=== PATIENT | male | born 1975 | race Native Hawaiian/Other Pacific Islander ===

== ENCOUNTER 2020-07-14 21:31 | Emergency (ER) | payer MEDICARE, SELFPAY ==
[2020-07-14 21:35] VITALS: BP 145/77; PULSE 80; RESP 19; TEMP 36.6; O2SAT 98; BMI 43.5
--- NOTE | 2020-07-14 22:33 | CT_ITS ---
EXAMINATION: CT ABDOMEN AND PELVIS WITHOUT CONTRAST CLINICAL INFORMATION: Flank and groin pain. Patient unable to urinate. History of left CVA. COMPARISON: Abdominal ultrasound 06/04/2016. TECHNIQUE: Multidetector volumetric imaging was performed from the superior aspect of the liver through the pubic symphysis. Sagittal and coronal reformatted images were obtained on the technologist's workstation. This CT examination was performed using dose optimization techniques as appropriate, variously including the following: *Automated exposure control *Adjustment of mA and/or kV according to patient size (this includes techniques or standardized protocols for targeted exams where dose is matched to indication/reason for exam; i.e. extremities or head) *Use of iterative reconstruction technique DLP: 1065 mGy-cm FINDINGS: LUNG BASES: Minor linear scarring. LIVER, GALLBLADDER, AND BILIARY TREE: The liver is normal in size, shape, and attenuation. No focal hepatic lesion or biliary ductal dilatation is present. The gallbladder is contracted. This is likely physiologic as the stomach is filled with food. The bile ducts are not dilated. PANCREAS: The unenhanced pancreas is uniform in attenuation with no mass, inflammation or ductal dilation. SPLEEN: The spleen is normal in size. ADRENAL GLANDS: Unremarkable. KIDNEYS AND URETERS: There is mild left hydroureteronephrosis. A 4 mm ureteral calculus is identified within the bladder lumen (series 3 image 78/96) likely within the ureteropelvic junction. There is subtle perinephric fat stranding on the left. The right kidney is normal in appearance without mass, calculus or hydronephrosis. The right ureter is nondilated. BLADDER: As noted above, there is a 4 mm calculus in the left bladder likely contained within the distal left ureter at the UVJ; given left hydroureteronephrosis. No bladder mass or wall thickening. The bladder is only mildly distended. GASTROINTESTINAL TRACT: The visualized esophagus is normal. The stomach is distended with food. Small bowel loops are normal in caliber. Normal terminal ileum. The appendix is not specifically identified. No pericecal inflammation. No evidence of colitis. No free air. No free fluid. ABDOMINAL WALL: Postsurgical changes at the level of the umbilicus without ventral hernia. There appears to have been a mesh repair of the anterior abdominal wall. LYMPH NODES: Normal. VASCULAR: Minimal atherosclerotic peripheral vascular disease with normal caliber abdominal aorta. PELVIC VISCERA: The prostate and seminal vesicles are normal in appearance. No pelvic free fluid or lymphadenopathy OSSEOUS STRUCTURES: Unilateral sacralization of L5 on the left, an anatomic variant. CT/CT abdomen pelvis wo con IMPRESSION: A 4 mm left ureterovesical junction calculus causes mild left hydroureteronephrosis.
--- NOTE | 2020-07-14 22:35 | ED.MALEGU ---
HPI - Male Genitourinary General Chief complaint: Urogenital-Male Stated complaint: flank pain Time Seen by Provider: 07/14/20 22:28 Source: patient Mode of arrival: ambulatory Limitations: no limitations History of Present Illness HPI Narrative: 44-year-old male with past medical history of hypertension, DVT, not on a blood thinner, complaining of 1 day of left flank pain and groin pain, inability to urinate. denies fever, chills, nausea or vomiting. denies blood in his urine. was able to urinate last at 21:00 but said it was a very small amount. states he had kidney stones once but it was many many years ago Related Data Home Medications Medication Instructions Recorded Confirmed hydrochlorothiazide 25 mg PO DAILY 07/14/20 07/14/20 lisinopril 2.5 mg PO DAILY 07/14/20 07/14/20 oxycodone-acetaminophen [Percocet] 2 tab PO Q4-6H PRN 07/14/20 07/14/20 Previous Rx's Medication Instructions Recorded ibuprofen 600 mg PO Q6H PRN #30 tab 07/15/20 prednisone 40 mg PO DAILY #8 tab 07/15/20 tamsulosin [Flomax] 0.4 mg PO DAILY #5 cap 07/15/20 Allergies Allergy/AdvReac Type Severity Reaction Status Date / Time morphine [MORPHINE] Allergy Mild CONFUSION, Verified 07/14/20 21:46 hives, rash/ itchy Review of Systems Review of Systems: Yes all other systems are reviewed and are negative PMFSH Past Medical History Attestation statement: The following information was validated with the patient. Medical History DVT (deep venous thrombosis) Social History Social History Smoking Status: Never smoker Use of substances other than those prescribed or required for medical reasons: No Advance Directives: No Advance Directives Information Provided: Yes Physical Exam Vital Signs: Vital Signs: Vital Signs Temp Pulse Resp BP Pulse Ox 07/14/20 23:05 97.9 F 77 15 129/76 97 07/14/20 21:35 97.8 F 80 19 145/77 H 98 Body Mass Index 43.5 Const: General: cooperative and other (in pain) Nutritional Appearance: obese Orientation/consciousness: patient oriented x3 HENMT: Head: Yes normal to inspection Eyes: General: appearance normal, both eyes and all related structures Neck: Neck: Yes normal visual inspection, Yes full ROM and Yes supple Resp: Effort & Inspection: normal respiratory effort and able to speak in complete sentences GI: Inspection: Yes obesity Palpation (GI): Soft to palpation, nontender and no guarding : Male General Exam: Yes normal external exam and No tenderness Skin: General skin exam: no rashes or lesions noted Neuro: General: patient oriented x3 Extrem: General: Yes no calf tenderness, Yes edema (L>R ) and Yes venous stasis dermatitis Psych: Appearance: grossly normal Course Course Course Narrative: 44-year-old male with past medical history of hypertension and history of DVT not on a blood thinner complaining of 1 day of left flank and groin pain, Inability to urinate fully, will get UA, CT/NG, labs and abdominal CT scan, give IVF and reassess. 12:20am patient states he has good pain relief, reviewed CT scan results with patient, explained plan for Flomax, prednisone, pain management and follow up with Dr. Pratt later this week. patient understands and agrees with plan. Will discharge home. MDM - Male Genitourinary Differential Diagnosis Differential diagnosis: Likely urinary tract infection, urethritis, prostatitis and acute retention of urine (2/2 BPH, stones ) Medical Records Attestation: I reviewed the patient's medical records. Lab Data Attestation: I reviewed the patient's lab results. Result diagrams: 07/14/20 23:19 07/14/20 23:19 Labs: Lab Results 07/14/20 07/14/20 07/14/20 Range/Units 22:44 23:19 23:19 WBC 5.6 (4.8-10.8) X10*3/uL RBC 5.04 (4.60-5.80) X10*6/uL Hgb 14.5 (14.0-18.0) g/dl Hct 45.3 (42-52) % MCV 89.9 (80-98) fL MCH 28.8 (27.0-33.0) pg MCHC 32.0 (31.0-36.0) g/dl RDW 14.2 (11.0-16.0) % Plt Count 194 (160-400) X10*3/uL MPV 10.5 (9.4-12.4) fL Immature Gran % (Auto) 0.2 (0.0-0.4) % Neut % (Auto) 55.2 (45-73) % Lymph % (Auto) 30.2 (20-40) % Carter % (Auto) 11.7 H (2-11) % Eos % (Auto) 1.8 (0-4) % Baso % (Auto) 0.9 (0-2) % Lymph # (Auto) 1.7 (1.2-4.9) X10*3/uL Carter # (Auto) 0.7 (0.1-1.2) X10*3/uL Eos # (Auto) 0.1 (0.0-0.4) X10*3/uL Baso # (Auto) 0.1 (0.0-0.2) X10*3/uL Abs Immat Gran (auto) 0.01 (0.00-0.03) X10*3/uL Absolute Neuts (auto) 3.1 (2.0-8.3) X10*3/uL Absolute Nucleated RBC 0.000 (0.0-0.012) X10*3/uL Nucleated RBC % (auto) 0.0 (0.0-0.2) /100WBC Hold Blue Top SEE NOTE Sodium (135-145) mmol/L Potassium (3.3-5.1) mmol/l Chloride (96-108) mmol/L Carbon Dioxide (22-29) mmol/L Anion Gap (12-20) BUN (9-16) mg/dL Creatinine (0.5-1.4) mg/dL Estim Creat Clear Calc Estimated GFR Random Glucose (60-115) mg/dL Calcium (8.4-10.2) mg/dL Total Bilirubin (0.0-1.0) mg/dL AST (5-37) U/L ALT (0-40) U/L Alkaline Phosphatase (39-117) U/L Total Protein (6.5-8.0) g/dL Albumin (3.5-5.0) g/dL Urine Color YELLOW Urine Appearance CLEAR Urine pH 6.5 (5.0-8.0) Ur Specific [place] 1.010 (1.005-1.025) Urine Protein NEG (NEG-TRACE) MG/DL Urine Glucose (UA) NEG (NEG) MG/DL Urine Ketones NEG (NEG) MG/DL Urine Blood 2+ H (NEG) Urine Nitrite NEG (NEG) Ur Leukocyte Esterase NEG (NEG) Urine RBC 10-14 H (0) /HPF Urine WBC 0 (0-4) /HPF Ur Squamous Epith Cells NONE /LPF Urine Bacteria NONE /LPF 07/14/20 Range/Units 23:19 WBC (4.8-10.8) X10*3/uL RBC (4.60-5.80) X10*6/uL Hgb (14.0-18.0) g/dl Hct (42-52) % MCV (80-98) fL MCH (27.0-33.0) pg MCHC (31.0-36.0) g/dl RDW (11.0-16.0) % Plt Count (160-400) X10*3/uL MPV (9.4-12.4) fL Immature Gran % (Auto) (0.0-0.4) % Neut % (Auto) (45-73) % Lymph % (Auto) (20-40) % Carter % (Auto) (2-11) % Eos % (Auto) (0-4) % Baso % (Auto) (0-2) % Lymph # (Auto) (1.2-4.9) X10*3/uL Carter # (Auto) (0.1-1.2) X10*3/uL Eos # (Auto) (0.0-0.4) X10*3/uL Baso # (Auto) (0.0-0.2) X10*3/uL Abs Immat Gran (auto) (0.00-0.03) X10*3/uL Absolute Neuts (auto) (2.0-8.3) X10*3/uL Absolute Nucleated RBC (0.0-0.012) X10*3/uL Nucleated RBC % (auto) (0.0-0.2) /100WBC Hold Blue Top Sodium 139 (135-145) mmol/L Potassium 4.1 (3.3-5.1) mmol/l Chloride 100 (96-108) mmol/L Carbon Dioxide 29 (22-29) mmol/L Anion Gap 14 (12-20) BUN 18 H (9-16) mg/dL Creatinine 1.19 (0.5-1.4) mg/dL Estim Creat Clear Calc 96.7 Estimated GFR > 60 Random Glucose 98 (60-115) mg/dL Calcium 8.9 (8.4-10.2) mg/dL Total Bilirubin 0.7 (0.0-1.0) mg/dL AST 21 (5-37) U/L ALT 29 (0-40) U/L Alkaline Phosphatase 52 (39-117) U/L Total Protein 7.1 (6.5-8.0) g/dL Albumin 4.1 (3.5-5.0) g/dL Urine Color Urine Appearance Urine pH (5.0-8.0) Ur Specific [place] (1.005-1.025) Urine Protein (NEG-TRACE) MG/DL Urine Glucose (UA) (NEG) MG/DL Urine Ketones (NEG) MG/DL Urine Blood (NEG) Urine Nitrite (NEG) Ur Leukocyte Esterase (NEG) Urine RBC (0) /HPF Urine WBC (0-4) /HPF Ur Squamous Epith Cells /LPF Urine Bacteria /LPF Imaging Data CT scan - abdomen: Attestation: I personally reviewed and interpreted this imaging study as follows: Radiologist's impression: GAIL [place] Find Patient CT - Devon Baker 44 M 1975 ACTIVITY DATE EXAM STATUS AUTHOR 07/14/20 22:[address] [place] [id number] [address] Scan Report Signed Patient: Del BakeroMR#: [id number] : 1975Acct:[id number] Age/Sex: 44 / MADM Date: 07/14/20 Loc: HO.ED Attending Dr: Ordering Physician: FARAZ WONG Date of Service: 07/14/20 Procedure(s): CT abdomen pelvis wo con Accession Number(s): [id number] cc: FARAZ WONG~ EXAMINATION: CT ABDOMEN AND PELVIS WITHOUT CONTRAST CLINICAL INFORMATION: Flank and groin pain. Patient unable to urinate. History of left CVA. COMPARISON: Abdominal ultrasound 06/04/2016. TECHNIQUE: Multidetector volumetric imaging was performed from the superior aspect of the liver through the pubic symphysis. Sagittal and coronal reformatted images were obtained on the technologist's workstation. This CT examination was performed using dose optimization techniques as appropriate, variously including the following: *Automated exposure control *Adjustment of mA and/or kV according to patient size (this includes techniques or standardized protocols for targeted exams where dose is matched to indication/reason for exam; i.e. extremities or head) *Use of iterative reconstruction technique DLP: 1065 mGy-cm FINDINGS: LUNG BASES: Minor linear scarring. LIVER, GALLBLADDER, AND BILIARY TREE: The liver is normal in size, shape, and attenuation. No focal hepatic lesion or biliary ductal dilatation is present. The gallbladder is contracted. This is likely physiologic as the stomach is filled with food. The bile ducts are not dilated. PANCREAS: The unenhanced pancreas is uniform in attenuation with no mass, inflammation or ductal dilation. SPLEEN: The spleen is normal in size. ADRENAL GLANDS: Unremarkable. KIDNEYS AND URETERS: There is mild left hydroureteronephrosis. A 4 mm ureteral calculus is identified within the bladder lumen (series 3 image 78/96) likely within the ureteropelvic junction. There is subtle perinephric fat stranding on the left. The right kidney is normal in appearance without mass, calculus or hydronephrosis. The right ureter is nondilated. BLADDER: As noted above, there is a 4 mm calculus in the left bladder likely contained within the distal left ureter at the UVJ; given left hydroureteronephrosis. No bladder mass or wall thickening. The bladder is only mildly distended. GASTROINTESTINAL TRACT: The visualized esophagus is normal. The stomach is distended with food. Small bowel loops are normal in caliber. Normal terminal ileum. The appendix is not specifically identified. No pericecal inflammation. No evidence of colitis. No free air. No free fluid. ABDOMINAL WALL: Postsurgical changes at the level of the umbilicus without ventral hernia. There appears to have been a mesh repair of the anterior abdominal wall. LYMPH NODES: Normal. VASCULAR: Minimal atherosclerotic peripheral vascular disease with normal caliber abdominal aorta. PELVIC VISCERA: The prostate and seminal vesicles are normal in appearance. No pelvic free fluid or lymphadenopathy OSSEOUS STRUCTURES: Unilateral sacralization of L5 on the left, an anatomic variant. CT/CT abdomen pelvis wo con IMPRESSION: A 4 mm left ureterovesical junction calculus causes mild left hydroureteronephrosis. Dictated By:ELLEN DEXTER MD Signed By:<Electronically signed by ELLEN DEXTER MD in OV>07/14/202311 DD/ 32 TD/TT: Internal Consultant: JV Discharge Plan Discharge Clinical Impression: Hydroureteronephrosis, Left ureteral calculus Patient Disposition: Home, Self-Care Instructions: Kidney Stones (ED), Hydronephrosis (ED) Prescriptions: New tamsulosin [Flomax] 0.4 mg capsule 0.4 mg PO DAILY Qty: 5 RF: 0 ibuprofen 600 mg tablet 600 mg PO Q6H PRN (Reason: pain) Qty: 30 RF: 0 prednisone 20 mg tablet 40 mg PO DAILY Qty: 8 RF: 0 No Action oxycodone-acetaminophen [Percocet] 5-325 mg Tablet 2 tab PO Q4-6H PRN (Reason: Pain, Moderate) RF: 0 hydrochlorothiazide 25 mg Tablet 25 mg PO DAILY RF: 0 lisinopril 2.5 mg Tablet 2.5 mg PO DAILY RF: 0 Referrals: Joao Pratt MD [Physician] - 3 days Print Language: Kenyan
[2020-07-14 22:55] LABS: Glucose Urine UA NEG (NEG); Leukocyte Esterase Urine NEG (NEG); Nitrite Urine NEG (NEG); PH 6.5 (5.0-8.0); Urine Blood 2+ (NEG); Urine Ketones NEG (NEG); Urine Protein NEG (NEG-TRACE)
[2020-07-14 22:59] LABS: Appearance Urine CLEAR; Color Urine YELLOW
[2020-07-14 23:05] VITALS: BP 129/76; PULSE 77; RESP 15; TEMP 36.6; O2SAT 97
[2020-07-14 23:08] LABS: WBC Urine 0 /HPF (0-4)
[2020-07-14] MEDS: 0.9 % Sodium Chloride 1,000 ML 999 ML IVCONT (23:21)
[2020-07-14] MEDS: Ketorolac Tromethamine 15 MG/ML VIAL IV (23:29)
--- NOTE | 2020-07-14 23:31 | PC.NURSE ---
patient medicated for pain per emar as noted.
[2020-07-14 23:33] LABS: MANUAL DIFF FLAG NO
[2020-07-14 23:35] LABS: Basophils Absolute Auto 0.1 X10*3/uL (0.0-0.2); Basophils Percent Auto 0.9 % (0-2); Eosinophils Absolute Auto 0.1 X10*3/uL (0.0-0.4); Eosinophils Percent Auto 1.8 % (0-4); Hematocrit 45.3 % (42-52); Hemoglobin 14.5 g/dl (14.0-18.0); Imm Gran Abs Auto 0.01 X10*3/uL (0.00-0.03); Imm Gran Pct Auto 0.2 % (0.0-0.4); Lymphocytes Absolute Auto 1.7 X10*3/uL (1.2-4.9); Lymphocytes Percent Auto 30.2 % (20-40); Mean Corpuscular Hemoglobin 28.8 pg (27.0-33.0); Mean Corpuscular Volume 89.9 fL (80-98); Mean Platelet Volume 10.5 fL (9.4-12.4); Monocytes Absolute Auto 0.7 X10*3/uL (0.1-1.2); Monocytes Percent Auto 11.7 % (2-11); Neutrophils Absolute Auto 3.1 X10*3/uL (2.0-8.3); Neutrophils Percent Auto 55.2 % (45-73); Platelet Count 194 X10*3/uL (160-400); Red Blood Count 5.04 X10*6/uL (4.60-5.80); Red Cell Distribution Width 14.2 % (11.0-16.0); White Blood Count 5.6 X10*3/uL (4.8-10.8)
[2020-07-14 23:57] LABS: Alanine Aminotransferase 29 U/L (0-40); Albumin Level 4.1 g/dL (3.5-5.0); Alkaline Phosphatase 52 U/L (39-117); Anion Gap 14 (12-20); Aspartate Amino Transferase 21 U/L (5-37); Bilirubin Total 0.7 mg/dL (0.0-1.0); Blood Urea Nitrogen 18 mg/dL (9-16); Calcium 8.9 mg/dL (8.4-10.2); Carbon Dioxide 29 mmol/L (22-29); Chloride 100 mmol/L (96-108); Creatinine Clr Calc Pharmacy 96.7; Estimated Glomerular Filt Rate > 60; Glucose Random 98 mg/dL (60-115); Potassium 4.1 mmol/l (3.3-5.1); Sodium 139 mmol/L (135-145); Total Protein 7.1 g/dL (6.5-8.0)
[2020-07-15] VITALS: BP 108/57; PULSE 67; RESP 14; O2SAT 98
[2020-07-15 01:41] LABS: CT PCR NOT DETECTED (Not Detect.); NG PCR NOT DETECTED (Not Detect.)
== END 2020-07-15 00:54 | disposition home or self-care (01) ==
PROVIDERS: Physician Assistant; Emergency Provider Emergency Medicine Emergency Medical Services; PCP Internal Medicine Geriatric Medicine
DX: N13.2 Hydronephrosis with renal and ureteral calculous obstruction (principal); R10.30 Lower abdominal pain, unspecified; Z86.718 Personal history of other venous thrombosis and embolism; Z79.899 Other long term (current) drug therapy
CPT/HCPCS: 36415; 74176; 80053; 81001; 85025; 87491; 87591; 96361; 96374; 99284; J1885

== ENCOUNTER 2020-09-03 13:47 | Emergency (ER) | payer OTHER, MEDICARE, SELFPAY ==
[2020-09-03 13:54] VITALS: BMI 35.2
[2020-09-03 14:16] VITALS: BP 142/85; PULSE 88; RESP 18; TEMP 36.6; O2SAT 97
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
== END 2020-09-03 15:02 | disposition home or self-care (01) ==
PROVIDERS: Emergency Provider Emergency Medicine; PCP Internal Medicine Geriatric Medicine
DX: S40.012A Contusion of left shoulder, initial encounter (principal); M25.512 Pain in left shoulder; V43.52XA Car driver injured in collision with other type car in traffic accident, initial encounter; Y93.9 Activity, unspecified; Y92.410 Unspecified street and highway as the place of occurrence of the external cause; Y99.9 Unspecified external cause status; Z79.899 Other long term (current) drug therapy
CPT/HCPCS: 71046; 99283; 99284

== ENCOUNTER 2020-12-03 17:51 | Outpatient (REF) | payer OTHER, MEDICARE, SELFPAY ==
--- NOTE | ~2020-12-03 | US_ITS ---
EXAMINATION: US VENOUS ULTRASOUND WITH DOPPLER LOWER EXTREMITY, LEFT CLINICAL INFORMATION: Left lower extremity edema and pain COMPARISON: Bilateral lower extremity ultrasound 04/23/2020 TECHNIQUE: Ultrasound of the deep veins is performed from the hip to the calf with compression sonography and color and pulse Doppler assessment. Spectral analysis with color-flow imaging is performed. FINDINGS: There is normal venous compression and respiratory variation and augmented flow. The visualized common femoral vein, superficial femoral vein, profunda femoral vein, popliteal vein, and the trifurcation region shows no evidence of deep venous thrombosis. There is no significant popliteal fossa cyst. Left lower extremity edema is noted. If the patient's symptoms persist, followup ultrasound in 5 days 7 days might be of value to exclude proximal propagation from a non-visualized calf vein. US/US venous duplex LE IMPRESSION: No DVT demonstrated in the left lower extremity.
== END 2020-12-03 17:52 | disposition home or self-care (01) ==
LOC: HO.US 17:51
PROVIDERS: PCP Internal Medicine Geriatric Medicine; Visit Provider Internal Medicine
DX: R60.0 Localized edema (principal)
CPT/HCPCS: 93971

== ENCOUNTER → 2021-01-23 10:25 | Outpatient (BNVA) | payer MEDICARE, SELFPAY | PROVIDERS: PCP Internal Medicine; Visit Provider Surgery Vascular Surgery | DX: I83.12 Varicose veins of left lower extremity with inflammation (principal) | CPT/HCPCS: 99212 ==

== ENCOUNTER → 2021-01-31 07:33 | Outpatient (BNVA) | payer MEDICARE, SELFPAY | PROVIDERS: PCP Internal Medicine; Visit Provider Surgery | DX: E66.01 Morbid (severe) obesity due to excess calories (principal); I10 Essential (primary) hypertension; G47.30 Sleep apnea, unspecified; Z68.42 Body mass index [BMI] 45.0-49.9, adult | CPT/HCPCS: Q3014 ==

== ENCOUNTER 2021-02-03 10:07 | Outpatient (REF) | payer MEDICARE, SELFPAY ==
--- NOTE | ~2021-02-03 | XR_ITS ---
EXAMINATION: XR CHEST CLINICAL INFORMATION: Essential (primary) hypertension. COMPARISON: Chest radiographs 09/03/2020, 12/28/2018 TECHNIQUE: Two views of the chest were obtained. FINDINGS: The heart is normal in size. The vascularity is normal. The lungs are clear. The costophrenic sulci are well defined. The hilar and mediastinal contours and visualized bony structures are unremarkable. No acute intrathoracic disease. XR/XR chest 2V IMPRESSION: Unremarkable examination.
--- NOTE | 2021-02-03 10:22 | ECG_ITS ---
Test Reason : HTN Blood Pressure : / mmHG Vent. Rate : 085 BPM Atrial Rate : 085 BPM P-R Int : 150 ms QRS Dur : 086 ms QT Int : 372 ms P-R-T Axes : 060 052 007 degrees QTc Int : 442 ms Normal sinus rhythm Normal ECG When compared with ECG of 16-SEP-2017 23:27, No significant change was found Referred By: Ravindra Kline Electronically Signed By:JAVIER JAIMES MD
[2021-02-03 11:02] LABS: MANUAL DIFF FLAG NO
[2021-02-03 11:12] LABS: Basophils Percent Auto 0.5 % (0-2); Eosinophils Absolute Auto 0.1 X10*3/uL (0.0-0.4); Eosinophils Percent Auto 1.3 % (0-4); Hematocrit 46.7 % (42-52); Hemoglobin 14.8 g/dl (14.0-18.0); Imm Gran Abs Auto 0.02 X10*3/uL (0.00-0.03); Imm Gran Pct Auto 0.4 % (0.0-0.4); Lymphocytes Absolute Auto 1.2 X10*3/uL (1.2-4.9); Mean Corpuscular HGB Conc 31.7 g/dl (31.0-36.0); Mean Corpuscular Hemoglobin 28.8 pg (27.0-33.0); Mean Platelet Volume 10.2 fL (9.4-12.4); Monocytes Absolute Auto 0.6 X10*3/uL (0.1-1.2); Monocytes Percent Auto 10.5 % (2-11); Neutrophils Absolute Auto 3.7 X10*3/uL (2.0-8.3); Neutrophils Percent Auto 65.3 % (45-73); Platelet Count 203 X10*3/uL (160-400); Red Blood Count 5.13 X10*6/uL (4.60-5.80); Red Cell Distribution Width 14.6 % (11.0-16.0); White Blood Count 5.6 X10*3/uL (4.8-10.8)
[2021-02-03 11:22] LABS: Estimated Average Glucose 134 mg/dL; Hemoglobin A1c % 6.3 %
[2021-02-03 11:35] LABS: Alanine Aminotransferase 93 U/L (0-40); Albumin Level 4.3 g/dL (3.5-5.0); Alkaline Phosphatase 62 U/L (39-117); Anion Gap 13 (12-20); Aspartate Amino Transferase 55 U/L (5-37); Bilirubin Total 0.7 mg/dL (0.0-1.0); Blood Urea Nitrogen 17 mg/dL (9-16); C Reactive Protein 1.38 mg/dL (< or = 0.50); Calcium 9.2 mg/dL (8.4-10.2); Carbon Dioxide 29 mmol/L (22-29); Chloride 103 mmol/L (96-108); Cholesterol 183 mg/dL; Estimated Glomerular Filt Rate > 60; Glucose Random 111 mg/dL (60-115); HDL Cholesterol 39 mg/dL; Iron 94 mcg/dL (45-160); LDL Cholesterol Calculated 98 mg/dl; Percent Iron Saturation 29 % (15-50); Potassium 4.8 mmol/L (3.3-5.1); Sodium 140 mmol/L (135-145); Total Iron Binding Capacity 320 mcg/dL (228-428); Total Protein 7.6 g/dL (6.5-8.0); Triglycerides 234 mg/dL; Unsaturated Iron Binding 226 ug/dL
[2021-02-03 11:58] LABS: Ferritin 425 ng/mL (20-250); TSH reflex Free T4 0.97 uIU/mL (0.32-4.0); Vitamin D 25-OH Total 15.1 ng/mL (>30)
[2021-02-03 12:10] LABS: Folate 9.7 ng/mL (> or = 4.0); Vitamin B12 406 pg/mL (200-900)
[2021-02-04 13:12] LABS: Calcium (PTHI) 9.4 mg/dL (8.6-10.3); PTHI 72 pg/mL (14-64)
[2021-02-06 05:52] LABS: Zinc 97 mcg/dL (60-130)
[2021-02-07 02:31] LABS: Vitamin A 44 mcg/dL (38-98)
[2021-02-07 18:16] LABS: Vitamin B1 7 nmol/L (8-30)
== END 2021-02-03 10:08 | disposition home or self-care (01) ==
LOC: HO.LAB 10:07
PROVIDERS: PCP Internal Medicine Geriatric Medicine; Visit Provider Surgery
DX: E66.01 Morbid (severe) obesity due to excess calories (principal); I10 Essential (primary) hypertension; G47.30 Sleep apnea, unspecified
CPT/HCPCS: 36415; 71046; 80053; 80061; 82306; 82607; 82728; 82746; 83036; 83525; 83540; 83970; 84425; 84443; 84590; 84630; 85025; 86140; 93005

== ENCOUNTER 2021-02-10 10:27 | Outpatient (REF) | payer MEDICARE, SELFPAY ==
--- NOTE | ~2021-02-10 | US_ITS ---
EXAMINATION: BILATERAL LOWER EXTREMITY VENOUS ULTRASOUND (REFLUX EXAM) CLINICAL INDICATION: Lower extremity varicose veins. COMPARISON: Left lower extremity venous Doppler ultrasound on 12/03/2020. TECHNIQUE: Color flow triplex imaging and compression Doppler was performed to evaluate both the deep and the superficial systems bilaterally. To evaluate the superficial system, the examination was performed in the upright position. Color-flow Doppler ultrasound and compression ultrasound were utilized. In addition, maneuvers were utilized to demonstrate reflux. FINDINGS: 1. DEEP VENOUS ULTRASOUND OF THE RIGHT LOWER EXTREMITY: Common Femoral Vein: Compressible, normal respiratory variation and augmented flow. Femoral vein: Compressible, normal color flow and augmentation. Popliteal Vein: Compressible, normal augmentation. Deep Reflux: There is no evidence of reflux in the deep system in either the common femoral vein or the popliteal vein. There is no evidence of a Cash's cyst. 2. SUPERFICIAL ULTRASOUND WITH DOPPLER OF RIGHT LOWER EXTREMITY GREAT SAPHENOUS VEIN: Saphenofemoral junction/proximal thigh: 0.7 cm; greater than 1.6 seconds of reflux. Midthigh: 0.5 cm; greater than 2.7 seconds of reflux. Above knee: 0.5 cm; No evidence of reflux. At knee: 0.5 cm; No evidence of reflux. Below knee: 0.5 cm; No evidence of reflux. Midcalf: 0.3 cm; No evidence of reflux. Ankle: 0.3 cm; No evidence of reflux. DUPLICATED GREAT SAPHENOUS VEIN: Medial, 0.4 cm, greater than 3.0 seconds of reflux. SMALL SAPHENOUS VEIN: Not visualized. VEIN OF GIACOMINI: None Imaged. PERFORATORS: Midcalf, 0.4 cm, no reflux. VARICOSITIES: Proximal thigh, 0.6 cm, greater than 3.1 seconds of reflux. Proximal calf, 0.5 cm, greater than 1.6 seconds of reflux. Proximal calf, 0.4 cm, greater than 1.3 seconds of reflux. Midcalf, 0.8 cm, greater than 1.6 seconds of reflux. 3. DEEP VENOUS ULTRASOUND OF THE LEFT LOWER EXTREMITY: Common Femoral Vein: Compressible, normal respiratory variation and augmented flow. Femoral vein: Compressible, normal color flow and augmentation. Popliteal Vein: Compressible, normal augmentation. Deep Reflux: There is greater than 1.9 seconds of reflux within the common femoral vein and greater than 1.1 seconds of reflux within the popliteal vein. There is no evidence of a Cash's cyst. 4. SUPERFICIAL ULTRASOUND WITH DOPPLER OF LEFT LOWER EXTREMITY GREAT SAPHENOUS VEIN: Saphenofemoral junction: 0.8 cm; later than 1.7 seconds of reflux. Proximal thigh: 1.1 cm; greater than 2.5 seconds of reflux. Midthigh: Not seen. Above knee: 0.9 cm; greater than 2.0 seconds of reflux. At knee: 1.0 cm; greater than 3.1 seconds of reflux. Below knee: 0.9 cm; greater than 2.2 seconds of reflux. Midcalf: 0.4 cm; greater than 1.0. Ankle: 0.5 cm; greater than 2.0. DUPLICATED GREAT SAPHENOUS VEIN: Lateral, 0.4 cm, no reflux. SMALL SAPHENOUS VEIN: Not visualized. VEIN OF GIACOMINI: None Imaged. PERFORATORS: Proximal calf, 0.7 cm, no reflux. VARICOSITIES: Midthigh, 0.5 cm, greater than 2.3 seconds of reflux. Midthigh, 0.9 cm, greater than 2.7 seconds of reflux. Proximal calf, 0.4 cm, greater than 1.7 seconds of reflux. Proximal calf, 0.7 cm, greater than 1.6 seconds of reflux. US/US venous duplex LE BI IMPRESSION: 1. Bilateral great saphenous venous insufficiency. 2. Duplicated medial right great saphenous venous insufficiency. 3. Bilateral refluxing varicosities. 4. No evidence of right DVT or deep venous reflux. 5. No evidence of left DVT, however, there is deep reflux within the common femoral vein and popliteal vein on the left.
== END 2021-02-10 10:28 | disposition home or self-care (01) ==
LOC: HO.US 10:27
PROVIDERS: Visit Provider Surgery Vascular Surgery
DX: I83.12 Varicose veins of left lower extremity with inflammation (principal); I83.893 Varicose veins of bilateral lower extremities with other complications
CPT/HCPCS: 93970

== ENCOUNTER → 2021-02-13 10:50 | Outpatient (BNVA) | payer OTHER, SELFPAY | PROVIDERS: PCP Internal Medicine Geriatric Medicine; Visit Provider Surgery Vascular Surgery | DX: I83.12 Varicose veins of left lower extremity with inflammation (principal) | CPT/HCPCS: 99212 ==

== ENCOUNTER → 2021-02-21 07:14 | Outpatient (BNVA) | payer OTHER, SELFPAY | PROVIDERS: PCP Internal Medicine Geriatric Medicine; Visit Provider Surgery | DX: E66.01 Morbid (severe) obesity due to excess calories (principal); E51.9 Thiamine deficiency, unspecified; E55.9 Vitamin D deficiency, unspecified | CPT/HCPCS: Q3014 ==

== ENCOUNTER 2021-02-26 08:17 | Outpatient (REF) | payer OTHER, SELFPAY ==
[2021-02-27 14:47] LABS: H Pylori Breath Test DETECTED (NOT DETECTED)
== END 2021-02-26 08:18 | disposition home or self-care (01) ==
LOC: HO.LNP 08:17
PROVIDERS: Surgery; PCP Internal Medicine Geriatric Medicine; Visit Provider Dietitian, Registered
DX: E66.01 Morbid (severe) obesity due to excess calories (principal); Z68.42 Body mass index [BMI] 45.0-49.9, adult; G47.30 Sleep apnea, unspecified; I10 Essential (primary) hypertension; Z71.3 Dietary counseling and surveillance
CPT/HCPCS: 83013; 97802; 99211

== ENCOUNTER → 2021-02-28 07:34 | Outpatient (BNVA) | payer OTHER, SELFPAY | PROVIDERS: PCP Internal Medicine Geriatric Medicine; Visit Provider Surgery Vascular Surgery | DX: I83.12 Varicose veins of left lower extremity with inflammation (principal) | CPT/HCPCS: 36482 ==

== ENCOUNTER 2021-03-02 19:26 | Emergency (ER) | payer OTHER, SELFPAY ==
--- NOTE | ~2021-03-02 | US_ITS ---
EXAMINATION: US VENOUS ULTRASOUND WITH DOPPLER LOWER EXTREMITY, LEFT CLINICAL INFORMATION: Swelling, redness status post venous ablation COMPARISON: 01/31/2021 TECHNIQUE: Ultrasound of the deep veins is performed from the hip to the calf with compression sonography and color and pulse Doppler assessment. Spectral analysis with color-flow imaging is performed. FINDINGS: There is normal venous compression and respiratory variation and augmented flow. The visualized common femoral vein, superficial femoral vein, profunda femoral vein, popliteal vein, and the trifurcation region shows no evidence of deep venous thrombosis. There is no significant popliteal fossa cyst. If the patient's symptoms persist, followup ultrasound in 5 days 7 days might be of value to exclude proximal propagation from a non-visualized calf vein. US/US venous duplex LE IMPRESSION: No DVT demonstrated in the left lower extremity.
[2021-03-02 19:47] VITALS: BP 140/88; PULSE 87; RESP 18; TEMP 36.6; O2SAT 96; BMI 45.1
--- NOTE | 2021-03-02 23:36 | ED.SKABFB ---
HPI - Skin/Abscess/Foreign Bdy General Chief complaint: Skin/Abscess/Foreign Body Stated complaint: left leg pain Time Seen by Provider: 03/02/21 23:06 History of Present Illness HPI narrative: 45-year-old man with a history of varicose vein. Had vein stripping done by vascular on Wednesday. Presents today with having increasing pain to the thigh. No fever no chills. No shortness of breath. No diaphoresis. No systemic complaints. Patient not on blood thinners. No nausea no vomiting. No upper respiratory symptoms. Related Data Home Medications Medication Instructions Recorded Confirmed hydrochlorothiazide 25 mg PO DAILY 07/14/20 01/31/21 lisinopril 2.5 mg PO DAILY 07/14/20 01/31/21 oxycodone-acetaminophen [Percocet] 2 tab PO Q4-6H PRN 07/14/20 01/31/21 Previous Rx's Medication Instructions Recorded cholecalciferol (vitamin D3) 125 125 mcg PO DAILY #30 cap 02/21/21 mcg (5,000 unit) capsule mecobalamin (vitamin B12) 1,000 1,000 mcg SUBLINGUAL DAILY #30 tab 02/21/21 mcg disintegrating tablet,sublingual thiamine HCl (vitamin B1) 100 mg 100 mg PO DAILY #30 tab 02/21/21 tablet doxycycline hyclate 100 mg PO BID 7 Days #14 cap 03/03/21 Allergies Allergy/AdvReac Type Severity Reaction Status Date / Time morphine [MORPHINE] Allergy Mild CONFUSION, Verified 02/28/21 09:22 hives, rash/ itchy Review of Systems Review of Systems: Constitutional: No Weight loss, No Fever, No Chills, No Night Sweats, No Fatigue, No Malaise ENT/Mouth: No Hearing loss, No Ear Pain, No Nasal Congestion, No Sinus Pain, No Hoarseness, No sore throat, No Rhinorrhea, No Swallowing Difficulty Eyes: No Eye Pain, No Swelling, No Redness, No Foreign Body, No Discharge, No Vision Changes Cardiovascular: No Chest Pain, No SOB, No Dyspnea on Exertion, No Orthopnea, No Edema, No Palpitations Respiratory: No Cough, No Sputum, No Wheezing, No Smoke Exposure, No Dyspnea Gastrointestinal: No Nausea, No Vomiting, No Diarrhea, No Constipation, No abdominal Pain, No Hematochezia, No Melena Genitourinary: no irregular bleeding, No Dysuria, No Urinary Frequency, No Hematuria, No Urinary Incontinence, No Urgency, No Flank Pain, No Urinary Flow Changes, No Hesitancy Musculoskeletal: Positive leg swelling on the left side. Neuro: No Weakness, No Numbness, No Paresthesias, No Loss of Consciousness, No Dizziness, No Headache Psych: No Anxiety/Panic, No Depression, No SI/HI/AH/VH, No Social Issues, Heme/Lymph: No Bruising, No Bleeding,No Lymphadenopathy Endocrine: No Polyuria, No Polydipsia, No Temperature Intolerance [facility] Past Medical History Attestation statement: The following information was validated with the patient. Medical History DJD (degenerative joint disease) DVT (deep venous thrombosis) Kidney stones Morbid obesity Sleep apnea with use of continuous positive airway pressure (CPAP) Surgical History Hx of appendectomy Hx of varicose vein stripping Family History Family History Mother Hypertension Father No problems noted. Brother No problems noted. Sister No problems noted. Sister No problems noted. Sister No problems noted. Sister No problems noted. Sister No problems noted. Sister No problems noted. Brother No problems noted. Brother No problems noted. Daughter No problems noted. Social History Social History Alcohol intake: current Alcohol intake frequency: holidays/special occasions only Advance Directives: No Physical Exam Vital Signs: Vital Signs: Last Vital Signs Temp 98 F 03/02/21 19:47 Pulse 71 03/03/21 00:37 Resp 16 03/03/21 00:37 BP 135/85 03/03/21 00:37 Pulse Ox 96 03/03/21 00:37 Body Mass Index 45.1 Appearance: Alert. Oriented X3. No acute distress. Eyes: Pupils equal, round and reactive to light. ENT: Pharynx normal. Neck: Normal inspection. Neck supple. No lymph nodes noted. No crepitus CVS: Normal heart rate and rhythm. Pulses normal. Normal S1 and S2 Respiratory: No respiratory distress. Breath sounds normal. No Wheezing. No rales Abdomen: Soft and nontender. No rigidity. No distention. good BS x4 Skin: Skin warm and dry. Normal skin color. Normal skin turgor. Extremities: Positive pain on palpation of the left thigh. The incision wound looks completely intact. There is no redness. It is slightly warm to touch. range of motion at the knee is baseline. There is no calf tenderness elicited. Pulse 2 +at dorsalis pedis. Sensation over the foot intact. Skin over the foot intact. Neuro: Oriented X 3. No motor deficit. No sensory deficit. Moving all extermities. No slurred speech MDM - Skin/Abscess/Foreign Bdy MDM Narrative Medical decision making narrative: Patient's white count was normal. Doppler of the lower extremity did not show any evidence of DVT. Patient had no shortness of breath. No suggestions of PE. It is slightly warm to touch. Will go ahead and start patient on some doxycycline. Will have patient follow-up with vascular on an outpatient basis. In stable condition. Lab Data Result diagrams: 03/02/21 23:46 03/02/21 23:46 Labs: Lab Results 03/02/21 03/02/21 Range/Units 23:46 23:46 WBC 7.3 (4.8-10.8) X10*3/uL RBC 5.21 (4.60-5.80) X10*6/uL Hgb 15.0 (14.0-18.0) g/dl Hct 46.9 (42-52) % MCV 90.0 (80-98) fL MCH 28.8 (27.0-33.0) pg MCHC 32.0 (31.0-36.0) g/dl RDW 14.6 (11.0-16.0) % Plt Count 200 (160-400) X10*3/uL MPV 10.1 (9.4-12.4) fL Immature Gran % (Auto) 0.1 (0.0-0.4) % Neut % (Auto) 59.7 (45-73) % Lymph % (Auto) 25.6 (20-40) % Blackford % (Auto) 11.2 H (2-11) % Eos % (Auto) 3.0 (0-4) % Baso % (Auto) 0.4 (0-2) % Lymph # (Auto) 1.9 (1.2-4.9) X10*3/uL Blackford # (Auto) 0.8 (0.1-1.2) X10*3/uL Eos # (Auto) 0.2 (0.0-0.4) X10*3/uL Baso # (Auto) 0.0 (0.0-0.2) X10*3/uL Abs Immat Gran (auto) 0.01 (0.00-0.03) X10*3/uL Absolute Neuts (auto) 4.4 (2.0-8.3) X10*3/uL Absolute Nucleated RBC 0.000 (0.0-0.012) X10*3/uL Nucleated RBC % (auto) 0.0 (0.0-0.2) /100WBC Sodium 140 (135-145) mmol/L Potassium 4.3 (3.3-5.1) mmol/L Chloride 104 (96-108) mmol/L Carbon Dioxide 27 (22-29) mmol/L Anion Gap 13 (12-20) BUN 19 H (9-16) mg/dL Creatinine 0.94 (0.5-1.4) mg/dL Estim Creat Clear Calc 123.7 Estimated GFR > 60 Random Glucose 88 (60-115) mg/dL Calcium 9.3 (8.4-10.2) mg/dL Discharge Plan Discharge Clinical Impression: Varicose veins of left lower extremity with inflammation, Cellulitis Patient Disposition: Home, Self-Care Instructions: Cellulitis (ED), Vein Stripping (DC) Prescriptions: New doxycycline hyclate 100 mg capsule 100 mg PO BID 7 Days Qty: 14 RF: 0 No Action oxycodone-acetaminophen [Percocet] 5-325 mg Tablet 2 tab PO Q4-6H PRN (Reason: Pain, Moderate) RF: 0 hydrochlorothiazide 25 mg Tablet 25 mg PO DAILY RF: 0 lisinopril 2.5 mg Tablet 2.5 mg PO DAILY RF: 0 mecobalamin (vitamin B12) 1,000 mcg tablet,disintegrating 1,000 mcg sublingual DAILY Qty: 30 RF: 2 thiamine HCl (vitamin B1) 100 mg tablet 100 mg PO DAILY Qty: 30 RF: 2 cholecalciferol (vitamin D3) 125 mcg (5,000 unit) capsule 125 mcg PO DAILY Qty: 30 RF: 2 Referrals: Stone Vasquez MD [Physician] - 1 day
[2021-03-02 23:50] LABS: MANUAL DIFF FLAG NO
[2021-03-02 23:51] LABS: Basophils Percent Auto 0.4 % (0-2); Eosinophils Absolute Auto 0.2 X10*3/uL (0.0-0.4); Hematocrit 46.9 % (42-52); Imm Gran Abs Auto 0.01 X10*3/uL (0.00-0.03); Imm Gran Pct Auto 0.1 % (0.0-0.4); Lymphocytes Absolute Auto 1.9 X10*3/uL (1.2-4.9); Lymphocytes Percent Auto 25.6 % (20-40); Mean Corpuscular Hemoglobin 28.8 pg (27.0-33.0); Mean Platelet Volume 10.1 fL (9.4-12.4); Monocytes Absolute Auto 0.8 X10*3/uL (0.1-1.2); Monocytes Percent Auto 11.2 % (2-11); Neutrophils Absolute Auto 4.4 X10*3/uL (2.0-8.3); Neutrophils Percent Auto 59.7 % (45-73); Platelet Count 200 X10*3/uL (160-400); Red Blood Count 5.21 X10*6/uL (4.60-5.80); Red Cell Distribution Width 14.6 % (11.0-16.0); White Blood Count 7.3 X10*3/uL (4.8-10.8)
[2021-03-03 00:20] LABS: Anion Gap 13 (12-20); Blood Urea Nitrogen 19 mg/dL (9-16); Calcium 9.3 mg/dL (8.4-10.2); Carbon Dioxide 27 mmol/L (22-29); Chloride 104 mmol/L (96-108); Creatinine Clr Calc Pharmacy 123.7; Estimated Glomerular Filt Rate > 60; Glucose Random 88 mg/dL (60-115); Potassium 4.3 mmol/L (3.3-5.1); Sodium 140 mmol/L (135-145)
[2021-03-03 00:37] VITALS: BP 135/85; PULSE 71; RESP 16; O2SAT 96
== END 2021-03-03 02:49 | disposition home or self-care (01) ==
PROVIDERS: Nurse Practitioner Family; Emergency Provider Emergency Medicine Emergency Medical Services; PCP Internal Medicine Geriatric Medicine
DX: I83.12 Varicose veins of left lower extremity with inflammation (principal); L03.116 Cellulitis of left lower limb; Z86.718 Personal history of other venous thrombosis and embolism; Z98.890 Other specified postprocedural states
CPT/HCPCS: 36415; 80048; 85025; 93971; 99283; 99284

== ENCOUNTER 2021-03-12 08:11 | Outpatient (REF) | payer OTHER, SELFPAY ==
--- NOTE | ~2021-03-12 | FL_ITS ---
EXAMINATION: XR GI SERIES CLINICAL INFORMATION: Moderate to severe obesity. Preop. COMPARISON: None TECHNIQUE: Routine upper GI air contrast study was performed. FINDINGS: Following oral administration of thick barium and effervescent granules there is normal propagation bolus from the oral cavity through the pharynx, esophagus into stomach without any obstruction or narrowing. On placing patient supine and prone lying the course, caliber and peristalsis in the stomach and the duodenum is normal. No gastroesophageal reflux or hiatal hernia seen. The mucosal pattern of stomach, duodenal bulb and the sweep is normal. FLUOROSCOPY TIME: 1.7 minutes DOSE AREA PRODUCT: 48.985 uGy-m2 (microgray-meter squared) FL/FL upper GI series IMPRESSION: Unremarkable upper GI air contrast study.
--- NOTE | ~2021-03-12 | US_ITS ---
EXAMINATION: US COMPLETE ABDOMEN WITH LIVER ELASTOGRAPHY CLINICAL INFORMATION: Obesity COMPARISON: Previous CT of the abdomen and pelvis June 2020 and abdominal ultrasound May 2000 TECHNIQUE: Real-time imaging of the abdominal viscera. Noninvasive ultrasound liver fibrosis assessment is performed using Yeny ElastPQ point quantification shear wave elastography (pSWE) with a C5-2 MHz transducer. Multiple elastography samples are obtained. Exam is limited due to patient body habitus. FINDINGS: PANCREAS: The body of the pancreas is normal. The head and tail the pancreas are not well visualized due to bowel gas. ABDOMINAL AORTA: The proximal and distal aortic segments are normal in caliber. The mid abdominal aorta is not well visualized due to bowel gas. INFERIOR VENA CAVA: Visualized portions are normal. LIVER: Liver echotexture is increased probably representing fatty infiltration. The liver contour and size is normal.. No focal lesion or intrahepatic biliary duct dilatation. The right lobe measures 16 cm in length. The left lobe measures 13 cm in length. Portal flow is normal/hepatopedal Shear wave liver elastography median stiffness is 2.1 m/s (reference: normal median stiffness is 1.3 m/s or less). IQR/median stiffness to assess sampling precision is 0.4 (reference: good quality data set is IQR/median stiffness of 0.15 or less). GALLBLADDER: Not well visualized COMMON BILE DUCT: Not well visualized. RIGHT KIDNEY: Normal. No hydronephrosis. No renal calculi or focal parenchymal lesions. The kidney measures 10.4 cm in maximum dimension. LEFT KIDNEY: Normal. No hydronephrosis. No renal calculi or focal parenchymal lesions. The kidney measures 12 cm in maximum dimension. SPLEEN: Normal. The spleen measures 12.5 cm in maximum dimension. FREE FLUID: None. US/US abdomen comp w elastography IMPRESSION: 1. Impression Limited exam. Echogenic liver probably representing fatty infiltration. Pancreas, gallbladder, common bile duct and abdominal aorta not well visualized. 2. Liver elastography: Limited due to sampling error. Liver stiffness may be elevated. REFERENCE: Society of Radiologists in Ultrasound Liver Stiffness Thresholds (2019): LIVER STIFFNESS THRESHOLDS: *Liver Stiffness equal or less than 1.3 m/s: High probability of being normal. *Liver Stiffness less than 1.7 m/s: In the absence of other known clinical signs, rules out compensated advanced chronic liver disease. *Liver Stiffness 1.7-2.1 m/s: Suggestive of compensated advanced chronic liver disease but need further test for confirmation. *Liver Stiffness over 2.1 m/s: Rules in compensated advanced chronic liver disease. *Liver Stiffness over 2.4 m/s: Suggestive of clinically significant portal hypertension. QUALITY OF DATA SET: *IQR/Median value equal or less than 0.15 implies a quality data set. *IQR/Median value over 0.15 implies a poor quality data set. SIGNIFICANT CHANGE FROM PRIOR EXAM: Significant change if liver stiffness measurement is 10% or greater from prior exam. OTHER CONSIDERATIONS: The stage of liver fibrosis may be overestimated in the setting of acute hepatitis, liver inflammation, elevated liver function tests, hepatic vascular congestion, obstructive cholestasis, non-fasting state, and infiltrative diseases such as amyloidosis and lymphoma. In some patients with NAFLD, the liver stiffness thresholds for compensated advanced chronic liver disease may be lower. In causes other than viral hepatitis and NAFLD, liver stiffness thresholds are not well established.
== END 2021-03-12 08:12 | disposition home or self-care (01) ==
LOC: HO.US 08:11
PROVIDERS: Visit Provider Surgery
DX: Z01.818 Encounter for other preprocedural examination (principal); E66.01 Morbid (severe) obesity due to excess calories; K21.9 Gastro-esophageal reflux disease without esophagitis; I10 Essential (primary) hypertension; G47.30 Sleep apnea, unspecified
CPT/HCPCS: 74240; 76705; 76981

== ENCOUNTER → 2021-03-13 11:49 | Outpatient (BNVA) | payer OTHER, SELFPAY | PROVIDERS: PCP Internal Medicine Geriatric Medicine; Visit Provider Surgery Vascular Surgery | DX: I83.12 Varicose veins of left lower extremity with inflammation (principal) | CPT/HCPCS: 99212 ==

== ENCOUNTER → 2021-03-17 08:07 | Outpatient (BNVA) | payer OTHER, SELFPAY | PROVIDERS: PCP Internal Medicine Geriatric Medicine; Visit Provider Dietitian, Registered | DX: E66.01 Morbid (severe) obesity due to excess calories (principal) | CPT/HCPCS: 97803 ==

== ENCOUNTER → 2021-03-25 11:40 | Outpatient (BNVA) | payer OTHER, SELFPAY | PROVIDERS: PCP Internal Medicine Geriatric Medicine; Visit Provider Surgery Vascular Surgery | DX: I83.12 Varicose veins of left lower extremity with inflammation (principal) | CPT/HCPCS: 99212 ==

== ENCOUNTER → 2021-04-01 12:55 | Outpatient (BNVA) | payer OTHER, SELFPAY | PROVIDERS: PCP Internal Medicine Geriatric Medicine; Referring Provider Internal Medicine Geriatric Medicine; Visit Provider Dietitian, Registered ==

== ENCOUNTER → 2021-04-15 12:39 | Outpatient (BNVA) | payer OTHER, SELFPAY | PROVIDERS: PCP Internal Medicine Geriatric Medicine; Referring Provider Internal Medicine Geriatric Medicine; Visit Provider Dietitian, Registered | DX: E66.01 Morbid (severe) obesity due to excess calories (principal); Z68.41 Body mass index [BMI] 40.0-44.9, adult; Z71.3 Dietary counseling and surveillance | CPT/HCPCS: 97803 ==

== ENCOUNTER → 2021-04-24 09:39 | Outpatient (BNVA) | payer OTHER, SELFPAY | PROVIDERS: PCP Internal Medicine Geriatric Medicine; Visit Provider Surgery Vascular Surgery | DX: I83.12 Varicose veins of left lower extremity with inflammation (principal) | CPT/HCPCS: 99212 ==

== ENCOUNTER 2021-05-05 06:54 | Day surgery (SDC) | payer OTHER, SELFPAY ==
[2021-05-05 07:07] VITALS: BMI 47.8
--- NOTE | 2021-05-05 07:35 | PC.NURSE ---
patients insurance is still a prior auth. aware of plan and awaiting for authorization.
[2021-05-05 08:00] VITALS: BP 140/90; PULSE 71; RESP 16; TEMP 36.3; O2SAT 97
--- NOTE | 2021-05-05 08:02 | PC.NURSE ---
office called patient has been authorized.
--- NOTE | 2021-05-05 08:14 | HO.ANESPROP2 ---
[facility] Active Problems Active Problems: All Active Problems (Updated 03/04/21 @ 00:01 by Matilde Flores) Vitamin D deficiency (Acute) Vitamin B1 deficiency (Acute) Binge eating disorder (Acute) Sleep apnea with use of continuous positive airway pressure (CPAP) (Acute) DJD (degenerative joint disease) (Acute) Kidney stones (Acute) Morbid obesity (Acute) Varicose veins of left lower extremity with inflammation (Acute) Hypertension (Acute) Past Medical History Medical History DJD (degenerative joint disease) DVT (deep venous thrombosis) Kidney stones Morbid obesity Sleep apnea with use of continuous positive airway pressure (CPAP) Family History Family History Mother Hypertension Father No problems noted. Brother No problems noted. Sister No problems noted. Sister No problems noted. Sister No problems noted. Sister No problems noted. Sister No problems noted. Sister No problems noted. Brother No problems noted. Brother No problems noted. Daughter No problems noted. Family history of problems with anesthesia: No Surgical History Surgical History Hx of appendectomy Hx of varicose vein stripping History of Problems with Anesthesia: No Social History Social History Alcohol intake: current Alcohol intake frequency: holidays/special occasions only Patient Tobacco Use Status: Never used Tobacco Use of substances other than those prescribed or required for medical reasons: No Are you DNR?: No Advance Directives: No Advance Directives Information Provided: Yes Recently lost weight without trying: No Nutrition Risks: No Nutritional Risk Poor oral hygiene: No Meds Allergies Allergy/AdvReac Type Severity Reaction Status Date / Time morphine [MORPHINE] Allergy Mild CONFUSION, Verified 04/24/21 09:43 hives, rash/ itchy Active Medications: Current Medications Generic Name Dose Route Start Last Admin Trade Name Freq PRN Reason Stop Dose Admin Lactated Ringer's 1,000 mls @ 50 mls/hr 05/02/21 12:15 Lr IVCONT .Q20H JODI Home Medications Medication Instructions Recorded Confirmed Last Taken Type hydrochlorothiazide 25 mg tablet 25 mg PO DAILY 07/14/20 01/31/21 07/13/20 History lisinopril 2.5 mg tablet 2.5 mg PO DAILY 07/14/20 01/31/21 07/13/20 History oxycodone-acetaminophen 5 mg-325 2 tab PO Q4-6H PRN 07/14/20 01/31/21 07/13/20 History mg tablet (Percocet) Exam Exam Date and Time: May 05, 202114 Height,Weight and Vital Signs: Height 5 ft 3 in Weight 122.47 kg Last Vital Signs Temp 97.4 F 05/05/21 08:00 Pulse 71 05/05/21 08:00 Resp 16 05/05/21 08:00 BP 140/90 H 05/05/21 08:00 Pulse Ox 97 05/05/21 08:00 Airway Mallampati Class: III (Missing some teeth, nothing loose) TM Dist: >3cm Neck ROM: Full Heart: rrr Lungs: cta Assessment and Plan Assessment Anesthesia Assessment: Anesthesia Plan Discussed and Chart Reviewed Final Anesthetic Review Family History of Problems with Anesthesia: No History of Problems with Anesthesia: No NPO: Yes ASA Class: III Final Preanesthetic Review: No Changes in Pt Med Stat and Consent Obtained/Reviewed Patient Risk: Intermediate Procedure Risk: Intermediate Anesthetic Plan Anesthetic Plan: MAC: Disposition: Standard PACU
--- NOTE | 2021-05-05 08:17 | MHC.SHP ---
Pre-Procedural Eval Section A Date of Service: 05/05/21 The patient is an INPATIENT: No The History & Physical has been completed within 30 days and I have reviewed it.: Yes Section B Chief Complaint: varicose veins of left lower Allergies: Allergies Allergy/AdvReac Type Severity Reaction Status Date / Time morphine [MORPHINE] Allergy Mild CONFUSION, Verified 04/24/21 09:43 hives, rash/ itchy Plan I have reviewed the history and physical and performed a pertinent physical examination on my patient. No changes have occurred unless specified.
[2021-05-05] MEDS: Lactated Ringers 1,000 ML 50 ML IVCONT ×2 (08:27)
[2021-05-05 10:00] VITALS: BP 113/85; PULSE 78; RESP 20; TEMP 36.3; O2SAT 97
--- NOTE | 2021-05-05 10:03 | P.OP_ITS ---
Operative Note Operative Note Date of Service: 05/05/21 Narrative: Operative note by [facility] Preoperative diagnosis: Left leg varicose veins with inflammation Postoperative diagnosis: Same Procedure: 1. Left leg microphlebectomy 2. Ligation of left leg venous cluster Surgeon:Stone Vasquez M.D. Community Program Assistant: None Anesthesia: Local with sedation by Dr. Fraire Specimens: 1 Drains: None Estimated blood loss: Minimal Indications: 45-year-old gentleman with a history of significant varicosities who has had prior venous ablations presents for varicose veins with inflammation in particular he has this large left thigh cluster which has been of concern to him. He now presents for operative intervention. The patient has signed the informed consent after reviewing risks, complications, benefits, and alternatives previously discussed with the patient in my office. The patient was given the opportunity to ask any additional questions or voice any concerns. All questions were answered to the patient's satisfaction. Procedure in detail:Varicose veins were marked in the standing position on the left leg and the patient was then placed in the supine position. The left lower extremity was prepared and draped to allow knee flexion in the sterile field. The patient had large superficial varicose veins with significant symptoms of pain. It was therefore determined to perform microphlebectomies of the clusters of varicose veins. The patient had bulging varicose veins which were previously marked in the standing position. A small stab incision was made longitudinally directly overlying the varicose vein in the calf and the varicose vein was grasped with a hemostat aided by a vein hook. It was then dissected as far proximally and distally as possible and avulsed. A total of 21 stab incisions were made and the procedure of stab phlebectomies was repeated 21 times. In addition there was a large venous cluster in the medial aspect of the left thigh. Incision was carried out over the base of this cluster. It was tied off with a 3-0 poly Sorb. Additional varicosities were removed with mosquito. It was also phlebitic and a fair amount of thrombus was also evacuated. The 3-0 Polysorb was used to close the skin as well. Hemostasis was checked and stab incision sites were closed with steri-strips and sterile dressing was given with gauze and krilex wrap followed by an fabrice bandage. There were no complications and blood loss was minimal. Post-Op instructions were given and a follow-up appointment was recommended. This note is constructed using voice recognition software. While every effort has been made to ensure accuracy, catering barista errors may have been included. Thank you for allowing me to participate in the care of your patient. Yours sincerely, Stone Vasquez MD, FACS, R.P.V.I.
[2021-05-05 10:15] VITALS: BP 118/83; PULSE 77; RESP 20; O2SAT 99
[2021-05-05] MEDS: oxyCODONE HCl Immed Release 5 MG TABLET PO (10:17)
[2021-05-05] MEDS: ondansetron HCL 4 MG/2 ML VIAL IVPUSH (10:21)
[2021-05-05 10:30] VITALS: BP 126/86; PULSE 75; RESP 18; TEMP 36.5; O2SAT 97
[2021-05-05 10:45] VITALS: BP 117/70; PULSE 69; RESP 18; O2SAT 100
--- NOTE | 2021-05-06 15:23 | P.OP_ITS ---
Operative Note Operative Note Date of Service: 05/05/21 Narrative: Operative note by [facility] Preoperative diagnosis: Left leg varicose veins with inflammation Postoperative diagnosis: Same Procedure:1. Left leg microphlebectomy 2. Ligation of left leg venous cluster Surgeon:Stone Vasquez M.D. Style Advisor: Maximus Anesthesia: Local with sedation Specimens: 1 Drains: None Estimated blood loss: Minimal Indications: 45-year-old gentleman with significant history of varicose veins. He has had prior left great saphenous vein ablation. He now presents for operative microphlebectomy due to his large varicosities. The patient has signed the informed consent after reviewing risks, complications, benefits, and alternatives previously discussed with the patient in my office. The patient was given the opportunity to ask any additional questions or voice any concerns. All questions were answered to the patient's satisfaction. Procedure in detail:Varicose veins were marked in the standing position on the left leg and the patient was then placed in the supine position. The left lower extremity was prepared and draped to allow knee flexion in the sterile field. Th e patient had large superficial varicose veins with significant symptoms of pain. It was therefore determined to perform microphlebectomies of the clusters of varicose veins. The patient had bulging varicose veins which were previously marked in the standing position. A small stab incision was made longitudinally directly overlying the varicose vein in the calf and the varicose vein was grasped with a hemostat aided by a vein hook. It was then dissected as far proximally and distally as possible and avulsed. A total of 21 stab incisions were made and the procedure of stab phlebectomies was repeated 21 times. In addition left leg had a venous cluster in the thigh area. This was identified and ligated at the base with a 3-0 poly Sorb suture. Residual varicosities were removed. Skin incision site was closed with a 3-0 poly Sorb as well. Hemostasis was checked and stab incision sites were closed with steri-strips and sterile dressing was given with gauze and krilex wrap followed by an fabrice bandage. There were no complications and blood loss was minimal. Post-Op instructions were given and a follow-up appointment was recommended. This note is constructed using voice recognition software. While every effort has been made to ensure accuracy, stonecutter apprentice hand errors may have been included. Thank you for allowing me to participate in the care of your patient. Yours sincerely, Stone Vasquez MD, FACS, R.P.V.I.
== END 2021-05-05 12:00 | disposition home or self-care (01) ==
PROVIDERS: PCP Internal Medicine Geriatric Medicine; Visit Provider Surgery Vascular Surgery
PROC: (CPT 37766; principal; 2021-05-05 08:00)
DX: I83.12 Varicose veins of left lower extremity with inflammation (principal); G47.33 Obstructive sleep apnea (adult) (pediatric); E66.01 Morbid (severe) obesity due to excess calories; Z68.41 Body mass index [BMI] 40.0-44.9, adult; M19.90 Unspecified osteoarthritis, unspecified site; Z79.899 Other long term (current) drug therapy; Z99.89 Dependence on other enabling machines and devices; Z88.8 Allergy status to other drugs, medicaments and biological substances
CPT/HCPCS: 37766; 37785; 88304; J0690; J2250; J2405; J3010

== ENCOUNTER → 2021-05-16 08:35 | Outpatient (BNVA) | payer OTHER, SELFPAY | PROVIDERS: PCP Internal Medicine Geriatric Medicine; Referring Provider Internal Medicine Geriatric Medicine; Visit Provider Dietitian, Registered | DX: E66.01 Morbid (severe) obesity due to excess calories (principal); Z68.41 Body mass index [BMI] 40.0-44.9, adult | CPT/HCPCS: 97803 ==

== ENCOUNTER → 2021-05-20 09:23 | Outpatient (BNVA) | payer OTHER, SELFPAY | PROVIDERS: PCP Internal Medicine Geriatric Medicine; Referring Provider Internal Medicine Geriatric Medicine; Visit Provider Surgery Vascular Surgery | DX: I83.12 Varicose veins of left lower extremity with inflammation (principal) | CPT/HCPCS: 99212 ==

== ENCOUNTER → 2021-06-25 08:48 | Outpatient (BNVA) | payer OTHER, SELFPAY | PROVIDERS: PCP Internal Medicine Geriatric Medicine; Referring Provider Internal Medicine Geriatric Medicine; Visit Provider Dietitian, Registered | DX: E66.9 Obesity, unspecified (principal); Z68.38 Body mass index [BMI] 38.0-38.9, adult | CPT/HCPCS: 97803 ==

== ENCOUNTER → 2021-07-07 10:18 | Outpatient (BNVA) | payer OTHER, SELFPAY | PROVIDERS: PCP Internal Medicine Geriatric Medicine; Referring Provider Internal Medicine Geriatric Medicine; Visit Provider Physician Assistant Surgical ==

== ENCOUNTER → 2021-08-11 08:17 | Outpatient (BNVA) | payer OTHER, SELFPAY | PROVIDERS: PCP Internal Medicine Geriatric Medicine; Visit Provider Surgery | CPT/HCPCS: Q3014 ==

== ENCOUNTER 2021-08-22 07:20 | Outpatient (REF) | payer OTHER, SELFPAY ==
[2021-08-24 13:26] LABS: H Pylori Breath Test Negative (Negative)
== END 2021-08-22 07:21 | disposition home or self-care (01) ==
LOC: HO.LNP 07:20
PROVIDERS: Physician Assistant; PCP Internal Medicine Geriatric Medicine; Referring Provider Internal Medicine Geriatric Medicine; Visit Provider Surgery
DX: A04.8 Other specified bacterial intestinal infections (principal)
CPT/HCPCS: 83013; 99211

== ENCOUNTER → 2021-09-15 07:50 | Outpatient (BNVA) | payer OTHER, SELFPAY | PROVIDERS: PCP Internal Medicine Geriatric Medicine; Visit Provider Surgery | DX: E66.01 Morbid (severe) obesity due to excess calories (principal); G47.30 Sleep apnea, unspecified; M19.90 Unspecified osteoarthritis, unspecified site; Z68.41 Body mass index [BMI] 40.0-44.9, adult | CPT/HCPCS: Q3014 ==

== ENCOUNTER 2021-09-16 08:35 | Outpatient (REF) | payer OTHER, SELFPAY ==
[2021-09-16 08:57] LABS: MANUAL DIFF FLAG NO
[2021-09-16 09:20] LABS: Basophils Percent Auto 0.6 % (0-2); Eosinophils Absolute Auto 0.1 X10*3/uL (0.0-0.4); Eosinophils Percent Auto 1.3 % (0-4); Hematocrit 49.6 % (42.0-52.0); Hemoglobin 15.9 g/dl (14.0-18.0); Imm Gran Abs Auto 0.02 X10*3/uL (0.00-0.03); Imm Gran Pct Auto 0.3 % (0.0-0.4); Lymphocytes Absolute Auto 1.3 X10*3/uL (1.2-4.9); Lymphocytes Percent Auto 19.4 % (20-40); Mean Corpuscular HGB Conc 32.1 g/dl (31.0-36.0); Mean Corpuscular Volume 90.3 fL (80.0-98.0); Mean Platelet Volume 10.4 fL (9.4-12.4); Monocytes Absolute Auto 0.6 X10*3/uL (0.1-1.2); Monocytes Percent Auto 8.2 % (2-11); Neutrophils Absolute Auto 4.8 x10*3/uL (2.0-8.3); Neutrophils Percent Auto 70.2 % (45-73); Platelet Count 221 X10*3/uL (160-400); Red Blood Count 5.49 X10*6/uL (4.60-5.80); Red Cell Distribution Width 14.8 % (11.0-16.0); White Blood Count 6.8 X10*3/uL (4.8-10.8)
[2021-09-16 09:27] LABS: INTERNATIONAL NORM RATIO 1.1 (0.9-1.1); Prothrombin Time 12.4 SEC (9.9-13.0)
[2021-09-16 09:30] LABS: Partial Thromboplastin Time 40.4 SEC (24.1-38.0)
[2021-09-16 09:31] LABS: Estimated Average Glucose 117 mg/dL; Hemoglobin A1c % 5.7 %
[2021-09-16 09:53] LABS: Alanine Aminotransferase 18 U/L (0-40); Albumin Level 4.3 g/dL (3.5-5.0); Alkaline Phosphatase 64 U/L (39-117); Anion Gap 12 (12-20); Aspartate Amino Transferase 15 U/L (5-37); Blood Urea Nitrogen 22 mg/dL (9-16); C Reactive Protein 1.14 mg/dL (< or = 0.50); Calcium 9.7 mg/dL (8.4-10.2); Carbon Dioxide 28 mmol/L (22-29); Chloride 105 mmol/L (96-108); Cholesterol 180 mg/dL; Estimated Glomerular Filt Rate > 60; Glucose Random 96 mg/dL (60-115); HDL Cholesterol 37 mg/dL; LDL Cholesterol Calculated 113 mg/dl; Potassium 4.6 mmol/L (3.3-5.1); Sodium 140 mmol/L (135-145); Total Protein 7.6 g/dL (6.5-8.0); Triglycerides 154 mg/dL
[2021-09-16 10:13] LABS: Insulin 12 uU/mL (2-29); TSH reflex Free T4 1.46 uIU/mL (0.32-4.0)
== END 2021-09-16 08:36 | disposition home or self-care (01) ==
LOC: HO.LAB 08:35
PROVIDERS: PCP Internal Medicine Geriatric Medicine; Visit Provider Surgery
DX: E66.01 Morbid (severe) obesity due to excess calories (principal); G47.30 Sleep apnea, unspecified; M19.90 Unspecified osteoarthritis, unspecified site
CPT/HCPCS: 36415; 80053; 80061; 83036; 83525; 84443; 85025; 85610; 85730; 86140

== ENCOUNTER → 2021-10-03 08:43 | Outpatient (BNVA) | payer OTHER, SELFPAY | PROVIDERS: PCP Internal Medicine Geriatric Medicine; Referring Provider Internal Medicine Geriatric Medicine; Visit Provider Physician Assistant ==

== ENCOUNTER 2021-10-14 07:40 | Inpatient (IN) | payer OTHER, SELFPAY ==
[2021-09-17 11:16] VITALS: BP 121/78; PULSE 87; RESP 16; O2SAT 94; BMI 39.6
--- NOTE | 2021-09-17 11:42 | HO.ANESPROP2 ---
Documented by User: Renetta Zayas NP 09/17/21 11:51 HPI - Anesthesia Eval Consult details Narrative: 46yo M for Gastrectomy Sleeve,EGD,poss diaphragmatic hernia,poss ventral hernia,poss open, PMFSH Active Problems Active Problems: All Active Problems (Updated 07/07/21 @ 10:25 by Shahnaz Allan, [facility]) H. pylori infection (Acute) Vitamin D deficiency (Acute) Vitamin B1 deficiency (Acute) Binge eating disorder (Acute) Sleep apnea with use of continuous positive airway pressure (CPAP) (Acute) DJD (degenerative joint disease) (Acute) Kidney stones (Acute) Morbid obesity (Acute) Varicose veins of left lower extremity with inflammation (Acute) Hypertension (Acute) Past Medical History Medical History DJD (degenerative joint disease) DVT (deep venous thrombosis) Kidney stones Morbid obesity Sleep apnea with use of continuous positive airway pressure (CPAP) Family History Family History Mother Hypertension Father No problems noted. Brother No problems noted. Sister No problems noted. Sister No problems noted. Sister No problems noted. Sister No problems noted. Sister No problems noted. Sister No problems noted. Brother No problems noted. Brother No problems noted. Daughter No problems noted. 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) Alcohol intake: current Alcohol intake frequency: holidays/special occasions only Patient Tobacco Use Status: Never used Tobacco Narrative Narrative: No recent illness No CP/SOB with >4mets Meds Allergies Allergy/AdvReac Type Severity Reaction Status Date / Time morphine [MORPHINE] Allergy Mild CONFUSION, Verified 09/15/21 11:59 hives, rash/ itchy Home Medications Medication Instructions Recorded Confirmed Last Taken Type hydrochlorothiazide 25 mg tablet 25 mg PO DAILY 07/14/20 09/17/21 07/13/20 History lisinopril 2.5 mg tablet 2.5 mg PO DAILY 07/14/20 09/17/21 07/13/20 History oxycodone-acetaminophen 5 mg-325 2 tab PO Q4-6H PRN 07/14/20 09/17/21 07/13/20 History mg tablet (Percocet) Exam Exam Date and Time: September 17, 2021 1142 Height,Weight and Vital Signs: Height 5 ft 6 in Weight 111.584 kg Last Vital Signs Pulse 87 09/17/21 11:16 Resp 16 09/17/21 11:16 BP 121/78 09/17/21 11:16 Pulse Ox 94 09/17/21 11:16 Pertinent Lab Results Pertinent Lab Results: Laboratory Tests 09/16/21 08:55 Blood Type O Positive Antibody Screen NEGATIVE Laboratory Tests 09/16/21 09/16/21 08:56 08:56 WBC 6.8 Hgb 15.9 Hct 49.6 Plt Count 221 Sodium 140 Potassium 4.6 Chloride 105 Carbon Dioxide 28 BUN 22 H Creatinine 0.93 Narrative Narrative: EKG 01/2021 Vent. Rate : 085 BPM ? ? Atrial Rate : 085 BPM ?? P-R Int : 150 ms? QRS Dur : 086 ms ? ? QT Int : 372 ms ? ? ? P-R-T Axes : 060 052 007 degrees ?? QTc Int : 442 ms ? Normal sinus rhythm Normal ECG When compared with ECG of 16-SEP-2017 23:27, No significant change was found Airway Mallampati Class: III TM Dist: >3cm Neck ROM: Full Loose/Missing/Broken Teeth: No Heart: RRR Lungs: CTAB Assessment and Plan Assessment Anesthesia Assessment: Anesthesia Plan Discussed (GA) and PAT Visit Final Anesthetic Review Family History of Problems with Anesthesia: No History of Problems with Anesthesia: No Documented by User: Brittany Kim MD 10/14/21 07:29 [facility] Past Medical History Medical History DJD (degenerative joint disease) DVT (deep venous thrombosis) Kidney stones Morbid obesity Sleep apnea with use of continuous positive airway pressure (CPAP) Family History Family History Mother Hypertension Father No problems noted. Brother No problems noted. Sister No problems noted. Sister No problems noted. Sister No problems noted. Sister No problems noted. Sister No problems noted. Sister No problems noted. Brother No problems noted. Brother No problems noted. Daughter No problems noted. 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) Alcohol intake: current Alcohol intake frequency: holidays/special occasions only Patient Tobacco Use Status: Never used Tobacco Meds Allergies Allergy/AdvReac Type Severity Reaction Status Date / Time morphine [MORPHINE] Allergy Mild CONFUSION, Verified 09/15/21 11:59 hives, rash/ itchy Home Medications Medication Instructions Recorded Confirmed Last Taken Type hydrochlorothiazide 25 mg tablet 25 mg PO DAILY 07/14/20 09/17/21 07/13/20 History lisinopril 2.5 mg tablet 2.5 mg PO DAILY 07/14/20 09/17/21 07/13/20 History oxycodone-acetaminophen 5 mg-325 2 tab PO Q4-6H PRN 07/14/20 09/17/21 07/13/20 History mg tablet (Percocet) Exam Height,Weight and Vital Signs: Height 5 ft 6 in Weight 111.584 kg Last Vital Signs Pulse 87 09/17/21 11:16 Resp 16 09/17/21 11:16 BP 121/78 09/17/21 11:16 Pulse Ox 94 09/17/21 11:16 Vital Signs Temp Pulse Resp BP Pulse Ox 10/14/21 06:33 97.6 F 88 16 123/86 94 Pertinent Lab Results Pertinent Lab Results: Laboratory Tests 09/16/21 08:55 Blood Type O Positive Antibody Screen NEGATIVE Laboratory Tests 09/16/21 09/16/21 08:56 08:56 WBC 6.8 Hgb 15.9 Hct 49.6 Plt Count 221 Sodium 140 Potassium 4.6 Chloride 105 Carbon Dioxide 28 BUN 22 H Creatinine 0.93 Lab Results 09/16/21 10/13/21 Range/Units 08:55 10:45 COVID-19 (CARL) Negative (Negative) COVID-19 Clin Com See Note Blood Type O Positive Antibody Screen NEGATIVE Assessment and Plan Assessment Anesthesia Assessment: Chart Reviewed Final Anesthetic Review NPO: Yes ASA Class: III Final Preanesthetic Review: No Changes in Pt Med Stat, Meds/Allgs Chart Reviewed, Consent Obtained/Reviewed and Anes Risks/Benef Reviewed Patient Risk: Intermediate Procedure Risk: Intermediate Assessment/Block/Sedation in SS: Assess/Block/Sedation-SS Anesthetic Plan Anesthetic Plan: GA Disposition: Standard PACU and Inp. Admit - Standard Bed
--- NOTE | 2021-09-20 21:16 | P.HPSUR_ITS ---
Pre-Procedural Eval Section A Date of Service: 09/20/21 The patient is an INPATIENT: Yes The History & Physical has been completed within 30 days and I have reviewed it.: No Section B Chief Complaint: obesity Relevant Family History (Specify if Yes): No Relevant Social History: None Present Medications: None Medical History: No relevant PMH History of Previous Operations: No relevant previous surgery Allergies: Allergies Allergy/AdvReac Type Severity Reaction Status Date / Time morphine [MORPHINE] Allergy Mild CONFUSION, Verified 09/15/21 11:59 hives, rash/ itchy Review of Systems Sugical H&P ROS: Negative: Constitution, Cardiovascular, Respiratory, Neurological, Psychiatric, Hem-Onc, Allergic/Immunologic, Gastrointestinal, Genitourinary, Musculoskeletal, Integumentary, Endocrine and Eyes/Ea rs/Nose/Throat Exam Surgical H&P Exam: Normal: HEENT, Normal: Heart, Normal: Lungs, Normal: Extremities, Normal: Abdomen, Normal: Skin and Normal: Neurological Plan Diagnosis/Plan: Unchanged I have reviewed the history and physical and performed a pertinent physical examination on my patient. No changes have occurred unless specified.
[2021-10-13 11:27] LABS: COVID-19 Test Negative (Negative)
--- NOTE | 2021-10-13 19:58 | P.HPSUR_ITS ---
Pre-Procedural Eval Section A Date of Service: 10/13/21 The patient is an INPATIENT: Yes The History & Physical has been completed within 30 days and I have reviewed it.: Yes Section B Chief Complaint: obesity Relevant Family History (Specify if Yes): No Relevant Social History: None Present Medications: None Medical History: No relevant PMH History of Previous Operations: No relevant previous surgery Allergies: Allergies Allergy/AdvReac Type Severity Reaction Status Date / Time morphine [MORPHINE] Allergy Mild CONFUSION, Verified 09/15/21 11:59 hives, rash/ itchy Review of Systems Sugical H&P ROS: Negative: Constitution, Cardiovascular, Respiratory, Neurological, Psychiatric, Hem-Onc, Allergic/Immunologic, Gastrointestinal, Genitourinary, Musculoskeletal, Integumentary, Endocrine and Eyes/E ars/Nose/Throat Exam Surgical H&P Exam: Normal: HEENT, Normal: Heart, Normal: Lungs, Normal: Extremities, Normal: Abdomen, Normal: Skin and Normal: Neurological Plan Diagnosis/Plan: Unchanged I have reviewed the history and physical and performed a pertinent physical examination on my patient. No changes have occurred unless specified.
[2021-10-14] VITALS (16 sets, daily range): BP systolic 109–139; BP diastolic 56–96; PULSE 71–92; RESP 14–18; TEMP 36.4–37.1; O2SAT 94–99
[2021-10-14] MEDS: Lactated Ringers 1,000 ML 100 ML IVCONT ×3 (06:49→20:24)
[2021-10-14] MEDS: Lactated Ringers 1,000 ML 999 ML IV (06:53)
[2021-10-14] MEDS: ceFAZolin Sodium/Dextrose,Iso 2 GM/50 ML PIGGYBACK IV ×2 (07:51→13:22)
--- NOTE | 2021-10-14 10:53 | P.BOP_ITS ---
Brief Operative Note Date of Service: 10/14/21 Pre-op diagnosis: Morbid obesity with comorbidities (see below) Post-op diagnosis: same (Extensive abdominal adhesions) Procedure: INITIAL PATIENT BMI ON PRESENTATION AT OUR OFFICE: 47.7 kg/m2 LAST BMI BEFORE SURGERY: 43.3 kg/m2 COMORBIDITIES: sleep apnea on CPAP, hypertension, knee pain, nephrolithiasis, liver steatosis, liver fibrosis ?The patient presented to the Weight Management Program with significant obesity that was negatively impacting the patient's comorbidities as listed above.? The program is a phased program with a special focus on preoperative medical weight management to promote substantial weight loss and prepare the patients for the second phase of the program: bariatric surgery. The patient participated in an intensive weekly lifestyle ?intervention and exercise program during which the patient ?has lost between the initial office visit and the last preoperative visit 43.3lbs, or 14.84% of initial actual body weight. It was deemed appropriate for the patient to now have bariatric surgery. In light of the current Covid-19 pandemic and the well documented strong association of obesity and increased risk of worse outcomes if infected with Covid-19 (REFERENCES: https://pubmed.ncbi.nlm.nih.gov/85391263/ ,? https://pubmed.ncbi.nlm.nih.gov/93093527/ ), any delay in undergoing bariatric surgery may lead to the patient's worsening health condition and increased?risk of more severe Covid-19 disease if infected. In addition a recent?study from [facility] published in [facility] on 09/15/2021 ([email or web address]) found that, among patients with obesity, substantial weight loss achieved with surgery was associated with improved outcomes of COVID-19 infection. The findings suggest that obesity can be a modifiable risk factor for the severity of COVID- 19 infection. In addition, the patient met the BMI-criteria for bariatric surgery based on the BMI on initial presentation. The patient should not be penalized for achieving such weight loss because ?it is not sustainable long-term without surgical intervention and it was achieved in preparation for bariatric surgery ?under my direction and based on my published research ([email or web address]).[email or web address] and? https://www.soard.org/article/X6814-3636(36)20328-X/pdf ) ?that a 10% preoperative weight loss improves long-term weight loss after surgery and reduces perioperative complications.? Insurance carriers such as [facility] have endo rsed my recommendations ?and have included in their policies criteria to include a 10% preoperative weight loss requirement. PROCEDURE: Esophago-gastroscopy, extensive laparoscopic lysis of adhesions, laparoscopic sleeve gastrectomy and laparoscopic gastropexy INDICATIONS: This is a 46 year-old male who was electively scheduled for laparoscopic, possibly open sleeve gastrectomy. The risks and complications of the procedure were discussed with the patient in advance, particularly the possibility of ; pulmonary embolism; staple line leak; bleeding; GERD; cardiac, pulmonary, or renal complications; as well as long-term problems such as insufficient weight loss, vitamin deficiency, strictures, or ulcers. The patient understood all the risks, and was in agreement to proceed with surgery. DESCRIPTION OF PROCEDURE: After informed consent was obtained from the patient, the patient was given preoperative antibiotics, and was transferred to the operating room. After successful induction of general anesthesia, pneumatic compression devices were placed on both lower extremities. An upper endoscopy was performed next. The oropharynx and esophagus appeared to be within normal limits. There was a diaphragmatic hernia present of moderate size consistent with the findings of the preoperative upper GI. The stomach was entered. Then after all fluid and air were suctioned and the stomach was fully decompressed, the scope was withdrawn and secured in the mid esophagus. The patient was then prepped and draped in the usual sterile manner. Due to previous midline incision abdominal access was established at the left mid-flank with the Marilyn technique. A 12 mm blunt port was inserted, and the abdomen was insufflated with CO2 to a pressure of 15 mmHg. Under direct visualization, addit ional ports were placed, specifically two 5 mm Versi-step ports to the left upper and lower quadrants. There were extensive adhesions in the abdomen from previous midline exploratory laparotomy involving the omentum and the anterior abdominal wall. Those were lysed completely with the ultrasonic device up to the point they were interfering with exposure to perform the sleeve gastrectomy. The remaining adhesion were left intact. Once the adhesions were freed additional ports were placed. Specifically two 5 mm Versi-Step ports to the right and upper quadrants and a 12 mm Versi-Step port to the right of the midline.. 1% lidocaine plain was used to infiltrate all port sites as well as all fascia defects. Following that, the patient was placed in a steep reverse Trendelenburg position. An additional 5 mm port was placed to the right flank for the Mediflex retractor that was used to retract the left lobe of the liver. The gastro-esophageal fat pad was opened with the ultrasonic device ( Thunderbeat, Olympus) and the anterior esophagus and hiatus were exposed. The angle of His was opened with the ultrasonic device the fundus of the stomach from any diaphragmatic and splenic attachments. I then opened the gastrocolic ligament between the transverse colon and the greater curvature of the stomach with the ultrasonic device to enter the lesser sac and facilitate the ligation of the short gastric vessels. I started at a mid-point along the greater curvature and using the Thunderbeat, all short gastric vessels were divided all the way to the angle of His until the left mercy was completely dissected at its entirety. I then divided the gastro-colic ligament distally to a distance of about 3-4 cm proximal to the esophagus. The stomach was then divided transversely with one Endo MARY JANE-45 purple, one MARY JANE- 60 purple load and 4 MARY JANE-6s0 articulating orange loads using the AEON stapler and loads. Every effort was made that the gastric sleeve had a tubular shape and an even caliber throughout. Once the sleeve resection was completed, the staple line of the gastric sleeve was reinforced with Hemoclips. The resected stomach was retrieved without difficulty from the Marilyn port. A gastropexy was then performed in order to prevent postoperative GERD and partial gastric volvulus. Several interrupted 2.0 Surgidac sutures were placed between the sleeve's staple line and the previously divided greater omentum and gastro-colic ligament using the Endo-Stitch device. ?An upper endoscopy was performed. There was no narrowing at the GE junction. The scope was easily advanced all the way to the pylorus which was clearly visualized. There was no narrowing anywhere and the sleeve's caliber was even throughout. The sleeve's staple line was inspected and there was no evidence of ischemia, bleeding or dehiscence. At that point the gastroscope was withdrawn from the patient?s mouth while we were decompressing the bowel and the stomach from any remaining air. I looked into the lesser sac to see how the sleeve was situating and it was situating well. There was no bleeding from the staple line, spleen, or short gastric vessels. The Mediflex retractor was removed, and the undersurface of the liver was inspected and there was no bleeding. The patient was placed in supine position. I closed the two fascial defects of the 12 mm ports site with the EndoClose suture passer with #1 Polysorb sutures. Then 100 cc 0.25 % Marcaine plain with 10 mg of Dexamethasone were used to infiltrate the fascial closure as well as all skin incisions. At this point, the abdomen was deflated, all ports were removed under direct vision, and no bleeding was noted from any of the port sites. The skin incisions were irrigated with saline and were closed with 4-0 absorbable monofilament sutures. Steri-Strips and OpSites were used to cover all incisions. The patient was extubated and was transferred in stable condition to the recovery room for further care. I was present and performed all simon parts of the procedure. Ho was the waiter/waitress first class. There were no residents to assist with this case. Chace Kline MD, PhD, FACS Surgeon: Ravindra Kline MD Anesthesia: GETA, local and other (TAP block) Was an Java Support Engineer used for this Procedure?: Yes Java Support Engineer: Kristen Ho Estimated blood loss (mL): 10 IV fluids (mL): 3,000 Urine output (mL): 0 (No Buckley to gravity) Pathology: other (Stomach) Condition: stable Disposition: PACU
[2021-10-14] MEDS: HYDROmorphone HCl 0.5 MG/0.5 ML SYRINGE 0.25 MG IVPUSH (10:55)
[2021-10-14] MEDS: Famotidine/PF 20 MG/2 ML VIAL IVPUSH ×2 (10:57→20:22)
--- NOTE | 2021-10-14 11:03 | P.PNGS_ITS ---
Subjective Subjective Date of Service: 10/15/21 Interval history: Patient has mild incisional pain, but was able to ambulate and use the incentive spirometer. He is tolerating phase 1 bariatric diet Physical Exam Verdana 4l Vital Signs: Verdana 4d Verdana 4d Vital Signs: Verdana 4d Verdana 4Bd Last Vital Signs Verdana 4d Chocolate Coater New 4d Chocolate Coater New 4d Temp 97.9 F 10/14/21 10:38 Chocolate Coater New 4d Pulse 91 10/14/21 10:43 Chocolate Coater New 4d Resp 16 10/14/21 10:55 BP 119/69 10/14/21 10:43 Pulse Ox 96 10/14/21 10:43 BMI result Body Mass Index 39.6 GI: Inspection: Yes normal to inspection, Yes incision (clean, dry and intact) and Yes obesity Extrem: Right lower extremity: normal to inspection (no calf tenderness) Left lower extremity: normal to inspection (no calf tenderness) Objective Data Active Medications Famotidine (Famotidine/Pf 20 Mg/2 Ml Vial) 20 mg IVPUSH BID [facility] Last Admin: 10/14/21 10:57 Dose: 20 mg Documented by: CASA Fentanyl (Fentanyl Citrate/Pf 100 Mcg/2 Ml Vial) 25 mcg IVPUSH Q5M PRN; Protocol PRN Reason: Pain, Moderate (Pain Scale 4-6 Hydromorphone HCl (Hydromorphone Hcl 0.5 Mg/0.5 Ml Syringe) 0.25 mg IVPUSH Q5M PRN; Protocol PRN Reason: Pain, Severe (Pain Scale 7-10) Last Admin: 10/14/21 10:55 Dose: 0.25 mg Documented by: CASA Lactated Ringer's (Lr) 1,000 mls @ 100 mls/hr IVCONT .Q10H [facility] Last Admin: 10/14/21 06:49 Dose: 100 mls/hr Documented by: SATINDER Promethazine HCl 6.25 mg/ (Sodium Chloride) 50.25 mls @ 201 mls/hr IV ONCE PRN PRN Reason: Nausea and Vomiting Metoclopramide HCl (Metoclopramide Hcl 10 Mg/2 Ml Vial) 10 mg IVPUSH Q6H PRN PRN Reason: Nausea Ondansetron HCl (Ondansetron Hcl 4 Mg/2 Ml Vial) 4 mg IVPUSH ONCE PRN PRN Reason: Nausea and Vomiting Labs CBC & Chem 7: 10/15/21 07:14 10/15/21 07:14 Labs: Laboratory Results - last 24 hr 10/13/21 10/14/21 10:45 06:24 COVID-19 (CARL) Negative COVID-19 Clin Com See Note Blood Type O Positive Antibody Screen NEGATIVE Procedures Date of Service Date of Service: 10/15/21 Progress Note: A&P Assessment and plan (1) Status post sleeve gastrectomy: Status: Acute Assessment and Plan: s/p laparoscopic sleeve gastrectomy, lysis of adhesions and gastropexy Doing well Check am labs. If OK, will discharge home? (2) Morbid obesity: Status: Acute (3) Sleep apnea with use of continuous positive airway pressure (CPAP): Status: Acute (4) DJD (degenerative joint disease): Status: Acute (5) Kidney stones: Status: Acute (6) Intra-abdominal adhesions: Status: Acute (7) Steatosis, liver: Status: Acute (8) Liver fibrosis: Status: Acute (9) Hypertension: Status: Acute (10) Varicose veins of left lower extremity with inflammation: Status: Acute (11) Knee pain: Status: Acute Fall Risk Details Current Medications: Current Medications Famotidine (Famotidine/Pf 20 Mg/2 Ml Vial) 20 mg IVPUSH BID [facility] Last Admin: 10/14/21 10:57 Dose: 20 mg Documented by: Fentanyl (Fentanyl Citrate/Pf 100 Mcg/2 Ml Vial) 25 mcg IVPUSH Q5M PRN; Protocol PRN Reason: Pain, Moderate (Pain Scale 4-6 Hydromorphone HCl (Hydromorphone Hcl 0.5 Mg/0.5 Ml Syringe) 0.25 mg IVPUSH Q5M PRN; Protocol PRN Reason: Pain, Severe (Pain Scale 7-10) Last Admin: 10/14/21 10:55 Dose: 0.25 mg Documented by: Lactated Ringer's (Lr) 1,000 mls @ 100 mls/hr IVCONT .Q10H [facility] Last Admin: 10/14/21 06:49 Dose: 100 mls/hr Documented by: Promethazine HCl 6.25 mg/ (Sodium Chloride) 50.25 mls @ 201 mls/hr IV ONCE PRN PRN Reason: Nausea and Vomiting Metoclopramide HCl (Metoclopramide Hcl 10 Mg/2 Ml Vial) 10 mg IVPUSH Q6H PRN PRN Reason: Nausea Ondansetron HCl (Ondansetron Hcl 4 Mg/2 Ml Vial) 4 mg IVPUSH ONCE PRN PRN Reason: Nausea and Vomiting Time Spent With Patient Time: Total time spent is greater than 50% in coordination of care (as documented) at patient's floor/unit and/or counseling patient: Time with patient: less than 15 minutes Quality Stroke Does the patient have a stroke diagnosis?: No VTE Prior VTE?: Yes Approximate Date of Prior VTE: 01/18/19 Approximate Time of Prior VTE: 14:00 VTE Risk Level:: Surgical - moderate VTE Device Contraindication: N/A - Device Ordered VTE Drug Contraindication: Treatment Not Indicated
[2021-10-14 11:14] LABS: Hematocrit 46.9 % (42.0-52.0); Hemoglobin 15.4 g/dl (14.0-18.0)
[2021-10-14 11:32] LABS: Anion Gap 13 (12-20); Blood Urea Nitrogen 14 mg/dL (9-16); Carbon Dioxide 27 mmol/L (22-29); Chloride 101 mmol/L (96-108); Creatinine Clr Calc Pharmacy 104.9; Estimated Glomerular Filt Rate > 60; Glucose Random 130 mg/dL (60-115); Potassium 4.2 mmol/L (3.3-5.1); Sodium 137 mmol/L (135-145)
[2021-10-14] MEDS: fentaNYL citrate/PF 100 MCG/2 ML VIAL 25 MCG IVPUSH (13:10)
--- NOTE | 2021-10-14 14:34 | P.DS_ITS ---
DS: Providers Provider Date of Service: 10/15/21 Date of admission: 10/14/21 07:40 Primary care physician: Logan Bettencourt MD DS: Diagnosis Discharge Diagnosis (1) Status post sleeve gastrectomy: Status: Acute (2) Morbid obesity: Status: Acute (3) Sleep apnea with use of continuous positive airway pressure (CPAP): Status: Acute (4) DJD (degenerative joint disease): Status: Acute (5) Kidney stones: Status: Acute (6) Intra-abdominal adhesions: Status: Acute (7) Steatosis, liver: Status: Acute (8) Liver fibrosis: Status: Acute (9) Hypertension: Status: Acute (10) Varicose veins of left lower extremity with inflammation: Status: Acute (11) Knee pain: Status: Acute DS: Summary Hospital Course Hospital Course: ADMITTING DIAGNOSIS: morbid obesity, CB, hx DVT., HTN DISCHARGE DIAGNOSIS: same, s/p laparoscopic sleeve gastrectomy PAST SURGICAL HISTORY: open appendectomy, laparotomy PROCEDURE: upper endoscopy, laparoscopic sleeve gastrectomy DISCHARGE SUMMARY: History of Present Illness: The patient is a 46 year-old woman with a BMI of 47.7 kg/m2 and associated co- morbidities as described above. The patient had extensive work-up,lost 42.9 lbs preoperatively and was electively scheduled for laparoscopic, possible open sleeve gastrectomy and gastropexy. Risks and complications of the surgery were discussed with the patient in advance, particularly the possibility of , pulmonary embolism, anastomotic leak, bleeding, bowel injury, GERD, cardiac, renal or pulmonary complications. The patient understood all the risks and was in agreement with the surgical plan. Hospital Course: The patient underwent an uneventful laparoscopic sleeve gastrectomy with gastropexy on the day of admission. Postoperatively, the patient was transferred to the surgical floor. The patient received IV Acetaminophen and IV dilaudid for pain control. Patient was started on bariatric phase 1 diet POD #0. On postoperative day one, the patient was feeling well without nausea, vomiting, fevers, or tachycardia. The patient had some mild incisional pain and the abdomen was soft. On the morning of postoperative day one, the patient was continued on 1 ounce of water or ice every half hour. During the day, the patient did fairly well, havin g some incisional pain, but able to ambulate adequately and to tolerate liquids well. Since the patient is doing well, we decided that the patient was ready to be discharged. The patient was given instructions to follow-up with me next week and to call my office for any fever over 101, persistent abdominal pain, nausea, vomiting, GERD, symptoms of DVT such as calf tenderness, or leg swelling, or pulmonary embolism such as chest pain or shortness of breath. The patient was also instructed to drink 40-60 ounces of liquids per day using the 1-ounce cups. The patient had been given prescriptions for Tylenol for pain, Zofran prn for nausea, and pantoprazole and carafate previously. The patient was encouraged to ambulate and use the incentive spirometer. The patient was allowed to shower, but no baths, and encouraged to stay active at home. All of these instructions were given to the patient personally. All questions were answered and the patient understood all instructions, the instructions were also given to the patient in print. Time Spent with Patient Time attestation: Total time spent providing and/or coordinating discharge services: Discharge coordination time: Less than 30 minutes Quality: Stroke Does the patient have a stroke diagnosis?: No Physical Exam Verdana 4l Vital Signs: Verdana 4d Verdana 4d Vital Signs: Verdana 4d Verdana 4Bd Last Vital Signs Verdana 4d Senior Net Software Developer New 4d Senior Net Software Developer New 4d Temp 97.7 F 10/14/21 13:50 Senior Net Software Developer New 4d Pulse 81 10/14/21 13:50 Senior Net Software Developer New 4d Resp 18 10/14/21 13:50 BP 109/68 10/14/21 13:50 Pulse Ox 97 10/14/21 13:50 BMI result Body Mass Index 39.6 DS: Data Data Completed and Pending Pending studies at discharge: Pending at discharge 10/14/21 09:39 Surgical [PTH] Routine Labs on day of discharge: Laboratory Results - last 24 hr 10/14/21 10/14/21 10/14/21 06:24 11:08 11:08 Hgb 15.4 Hct 46.9 Sodium 137 Potassium 4.2 Chloride 101 Carbon Dioxide 27 Anion Gap 13 BUN 14 Creatinine 1.02 Estim Creat Clear Calc 104.9 Estimated GFR > 60 Random Glucose 130 H D Calcium 9.0 D Blood Type O Positive Antibody Screen NEGATIVE Discharge Plan Discharge Anticipated Discharge Date/Time: 10/15/21 10:42 Patient Disposition: Home, Self-Care Discharge Diagnosis: s/p sleeve gastrectomy Referrals: Name,MD Logan [Primary Care Provider] - 1 Week Discharge Medications: Continued oxycodone-acetaminophen [Percocet] 5-325 mg Tablet 2 tab PO Q4H PRN (Reason: Pain, Moderate) 0RF lisinopril 2.5 mg Tablet 2.5 mg PO DAILY 0RF pantoprazole 40 mg tablet,delayed release (DR/EC) 40 mg PO DAILY Qty: 30 2RF Held hydrochlorothiazide 25 mg Tablet 25 mg PO DAILY 0RF Hold Instructions: Discuss restart date with Dr Kline Discharge Orders: Discharge Order (Routine); Ordered 10/15/21 Ordered By: Ravindra Kline Diet: other Activity on Discharge: No heavy lifting Stand Alone Forms: Patient Portal Discharge page Care Plan Goals: weight loss Health Concerns: morbid obesity Plan of Treatment: No tub baths, sex or returning to work until discussed at first post op appointment. No exercise, alcohol, tobacco or illegal drug use. Continue to use incentive spirometer hourly while awake. Walk in home for 5- 10 minutes every 2 hours during the first week. Continue phase 1 diet today and start phase 2 diet tomorrow morning. Follow all instructions in the bariatric handbook and call with any questions. 1. Please call your doctor or come back to the emergency room should any new symptoms arise. 2. You will receive a courtesy call from [facility] 24-48 hours after discharge. 3. Activity: abstain from alcohol, practice limited stair climbing, no bending, no driving, no exercise, no illicit substances, no lifting, no sex, no tub bath, no work. 4. Diet: continue as discussed with Dr. Kline. 5. Dressing Change/Wound Care: Do not change or remove surgical dressings unless they are wet or soiled. 6. Call your doctor if: - Your temperature exceeds 101.5 F - You experience excessive pain or swelling - You have an unexpected reaction to medication - You have excessive bleeding - You experience continued vomiting/nausea - Your incision begins to separate - Your incision shows signs of infection such as increased redness, swelling, excessive pain, heat, or drainage (light blood or clear fluid is normal) 7. General instructions: No lifting greater than 5 lbs for the next 4 weeks[address] driving within 24 hours of taking narcotic pain medications. If you do not move your bowels in the next 2 days, please take milk of magnesia over the counter. Please follow the post op diet and do not advance your diet until you are seen in the office in about 2 weeks. Please walk around your home every hour or two to prevent blood clots from forming in your legs. You do not need to wake from sleeping to walk. Please sleep in a bed or couch to prevent kinking at the hips and knees. Please take your incentive spirometer (your lung can filling and closing machine tender) home with you and use it for the next few days to prevent pneumonias. You may shower, no hot tubs, baths or swimming pools. Please call the office with any questions or concerns such as increasing abdominal pain, fever, chills, shortness of breath, chest pain, leg pain or swelling, or redness or drainage from your incisions. Do not hesitate to contact the office with any questions at . The patient's medical history has been reviewed and they are considered low risk for post op DVT and therefore DVT prophylaxis is not considered necessary. Travel after surgery was reviewed. The patient has not disclosed any travel plans during the first 30 days after surgery and they have been advised that within the first 30 days after surgery any bus, plane, train or car travel over 2 hours in duration is contraindicated due to the possibility of developing blood clots from immobility. Any travel, needs to include periods of ambulation of 10 minutes in duration every 2 hours. The patient was instructed to discuss any plans for travel during this period with their bariatric surgeon. Assessment: stable, post op sleeve gastrectomy Discharge Date/Time: 10/15/21 09:18
--- NOTE | 2021-10-14 15:14 | PHA.MEDREC ---
Pharmacy Consult ? Medication Reconciliation Pharmacy has completed the medication reconciliation. No remarkable issues. Jenna Anthony, WendyD
[2021-10-14] MEDS: 0.9 % Sodium Chloride Flush 3 ML SYRINGE IVFLUSH ×2 (16:05→20:22)
[2021-10-14] MEDS: lisinopriL 2.5 MG TABLET PO (16:05)
[2021-10-14] MEDS: ondansetron HCL 4 MG/2 ML VIAL IVPUSH (18:07)
[2021-10-15] VITALS: BP 124/71; PULSE 68; RESP 17; TEMP 36.4; O2SAT 97
[2021-10-15] MEDS: ondansetron HCL 4 MG/2 ML VIAL IVPUSH ×2 (01:13→08:05)
[2021-10-15 03:36] VITALS: BP 120/62; PULSE 72; RESP 18; TEMP 36.5; O2SAT 96
[2021-10-15] MEDS: Lactated Ringers 1,000 ML 100 ML IVCONT (06:10)
[2021-10-15] MEDS: Famotidine/PF 20 MG/2 ML VIAL IVPUSH (07:11)
[2021-10-15 07:20] VITALS: BP 123/64; PULSE 78; RESP 18; TEMP 36.7; O2SAT 97
[2021-10-15 07:26] LABS: MANUAL DIFF FLAG NO
[2021-10-15 07:29] LABS: Basophils Percent Auto 0.1 % (0-2); Hematocrit 44.8 % (42.0-52.0); Hemoglobin 14.7 g/dl (14.0-18.0); Imm Gran Abs Auto 0.05 X10*3/uL (0.00-0.03); Imm Gran Pct Auto 0.5 % (0.0-0.4); Lymphocytes Absolute Auto 0.7 X10*3/uL (1.2-4.9); Lymphocytes Percent Auto 7.6 % (20-40); Mean Corpuscular HGB Conc 32.8 g/dl (31.0-36.0); Mean Corpuscular Hemoglobin 29.7 pg (27.0-33.0); Mean Corpuscular Volume 90.5 fL (80.0-98.0); Mean Platelet Volume 10.6 fL (9.4-12.4); Monocytes Absolute Auto 0.7 X10*3/uL (0.1-1.2); Monocytes Percent Auto 7.3 % (2-11); Neutrophils Absolute Auto 8.1 x10*3/uL (2.0-8.3); Neutrophils Percent Auto 84.5 % (45-73); Platelet Count 195 X10*3/uL (160-400); Red Blood Count 4.95 X10*6/uL (4.60-5.80); Red Cell Distribution Width 14.5 % (11.0-16.0); White Blood Count 9.6 X10*3/uL (4.8-10.8)
[2021-10-15 07:49] LABS: Anion Gap 13 (12-20); Blood Urea Nitrogen 10 mg/dL (9-16); Calcium 9.3 mg/dL (8.4-10.2); Carbon Dioxide 28 mmol/L (22-29); Chloride 102 mmol/L (96-108); Creatinine Clr Calc Pharmacy 124.5; Estimated Glomerular Filt Rate > 60; Glucose Random 107 mg/dL (60-115); Potassium 4.4 mmol/L (3.3-5.1); Sodium 139 mmol/L (135-145)
[2021-10-15] MEDS: lisinopriL 2.5 MG TABLET PO (08:05)
--- NOTE | 2021-10-15 09:12 | MHC.CM.PN ---
RAYO WALDEN NO SKILLED SRVCES ORDERED BY
--- NOTE | 2021-10-15 09:25 | MHC.CM.PN ---
PT DCD PRIOR TO CM SEEING PT
--- NOTE | 2021-10-15 10:34 | HO.POSTANES ---
Post Anesthesia Evaluation Post Anesthesia Evaluation Vital Signs: Vital Signs Temp Pulse Resp BP Pulse Ox 10/15/21 07:20 98.0 F 78 18 123/64 97 10/15/21 03:36 97.7 F 72 18 120/62 96 10/15/21 00:00 97.5 F 68 17 124/71 97 Anesthesia: General Endotracheal-GETA Mental Status: Awake Pain Control: Satisfactory Nausea/Vomiting: None Hydration: Adequate Anesthesia-Related Issues: No Anes. Related Issues
== END 2021-10-15 09:18 | disposition home or self-care (01) | DRG 621 ==
LOC: HO.SSSA 10:44 → HO.S3 14:57
PROVIDERS: Physician Assistant; Physician Assistant Surgical; Admitting Provider Surgery; PCP Internal Medicine Geriatric Medicine; Visit Provider Surgery
PROC: 0DB64Z3 Excision of Stomach, Percutaneous Endoscopic Approach, Vertical (ICD-10-PCS; CPT 43845; principal; 2021-10-14 07:30)
DX: E66.01 Morbid (severe) obesity due to excess calories (principal); G47.30 Sleep apnea, unspecified; Z68.41 Body mass index [BMI] 40.0-44.9, adult; Z99.89 Dependence on other enabling machines and devices; K66.0 Peritoneal adhesions (postprocedural) (postinfection); K76.0 Fatty (change of) liver, not elsewhere classified; N20.0 Calculus of kidney; K74.00 Hepatic fibrosis, unspecified; I10 Essential (primary) hypertension; M25.569 Pain in unspecified knee; Z20.822 Contact with and (suspected) exposure to COVID-19; Z79.899 Other long term (current) drug therapy
CPT/HCPCS: 36415; 80048; 85014; 85018; 85025; 86850; 86900; 86901; 87635; 88307; 88342; 99024; A4649; J0131; J0690; J1100; J1170; J2250; J2370; J2405; J2550; J3010

== ENCOUNTER → 2021-10-20 08:50 | Outpatient (BNVA) | payer OTHER, SELFPAY | PROVIDERS: PCP Internal Medicine Geriatric Medicine; Referring Provider Internal Medicine Geriatric Medicine; Visit Provider Surgery | DX: E66.9 Obesity, unspecified (principal); Z90.3 Acquired absence of stomach [part of]; Z68.37 Body mass index [BMI] 37.0-37.9, adult | CPT/HCPCS: 99212 ==

== ENCOUNTER → 2021-11-14 08:14 | Outpatient (BNVA) | payer OTHER, SELFPAY | PROVIDERS: PCP Internal Medicine Geriatric Medicine; Visit Provider Physician Assistant | DX: E66.9 Obesity, unspecified (principal); Z68.35 Body mass index [BMI] 35.0-35.9, adult; I10 Essential (primary) hypertension; Z90.3 Acquired absence of stomach [part of] | CPT/HCPCS: 99212 ==

== ENCOUNTER → 2021-11-21 09:46 | Outpatient (BNVA) | payer OTHER, SELFPAY | PROVIDERS: PCP Internal Medicine Geriatric Medicine; Visit Provider Physician Assistant Surgical | DX: Z90.3 Acquired absence of stomach [part of] (principal); Z98.84 Bariatric surgery status | CPT/HCPCS: 99212 ==

== ENCOUNTER → 2021-12-03 08:55 | Outpatient (BNVA) | payer OTHER, SELFPAY | PROVIDERS: PCP Internal Medicine Geriatric Medicine; Visit Provider Physician Assistant | DX: Z13.89 Encounter for screening for other disorder (principal) ==

== ENCOUNTER → 2021-12-10 10:39 | Outpatient (BNVA) | payer OTHER, SELFPAY | PROVIDERS: PCP Internal Medicine Geriatric Medicine; Referring Provider Internal Medicine Geriatric Medicine; Visit Provider Physician Assistant | DX: E66.9 Obesity, unspecified (principal); Z90.3 Acquired absence of stomach [part of]; Z68.34 Body mass index [BMI] 34.0-34.9, adult | CPT/HCPCS: 99212 ==

== ENCOUNTER 2021-12-23 17:31 | Emergency (ER) | payer OTHER, SELFPAY ==
--- NOTE | ~2021-12-23 | CT_ITS ---
EXAMINATION: CT ABDOMEN AND PELVIS WITHOUT CONTRAST CLINICAL INFORMATION: 46-year-old male with back pain and hematuria. COMPARISON: Abdominal ultrasound 03/12/[address] abdomen pelvis 07/14/2020 TECHNIQUE: Multidetector volumetric imaging was performed from the superior aspect of the liver through the pubic symphysis. Sagittal and coronal reformatted images were obtained on the technologist's workstation. This CT examination was performed using dose optimization techniques as appropriate, variously including the following: *Automated exposure control *Adjustment of mA and/or kV according to patient size (this includes techniques or standardized protocols for targeted exams where dose is matched to indication/reason for exam; i.e. extremities or head) *Use of iterative reconstruction technique DLP: 690 mGy-cm FINDINGS: Visualized lung bases are well aerated. The liver demonstrates normal size, contour and attenuation. The gallbladder is decompressed but otherwise unremarkable. The pancreas, spleen and adrenal glands are unremarkable. Symmetrically sized kidneys. No renal calculi or hydronephrosis of either kidney. Surgical changes of the stomach. Normal caliber loops of small and large bowel. Mild to moderate colonic stool burden. Normal caliber abdominal aorta which demonstrates only mild atherosclerotic disease. No retroperitoneal lymphadenopathy. Small fat-containing paraumbilical hernia is again noted. There is suggestion of prior umbilical hernia repair. The bladder is relatively decompressed and therefore not accurately evaluated, however, no gross bladder abnormality is identified. The prostate gland is prominent measuring 4.7 cm in maximum transverse dimension. There is no gross free pelvic fluid. No inguinal lymphadenopathy. Mild to moderate degenerative changes of the spine. Partial left-sided sacralization of the L5 vertebral body. CT/CT abdomen pelvis wo con IMPRESSION: No renal calculi or hydronephrosis of either kidney. Fleischner guidelines were followed.
[2021-12-23 18:20] VITALS: BP 128/85; PULSE 66; RESP 16; TEMP 36.7; O2SAT 99; BMI 32.1
--- NOTE | 2021-12-23 19:31 | ED_ITS ---
HPI - Back Pain/Injury General Chief Complaint: Back Pain/Injury Stated Complaint: back pain since this morning Time Seen by Provider: 12/23/21 18:42 Source: patient Mode of arrival: ambulatory Limitations: language barrier (Luxembourgish-speaking medical biller/coder utilized) History of Present Illness HPI Narrative: Patient is a 46 a past medical history of DVT, recent gastric bypass, renal calculi, sleep apnea. for evaluation of right lower back upper hip pain of sudden onset today while walking on the treadmill. Pain is made worse wall standing on the leg and while crossing his leg across midline. Denies sheila ntifiable precipitating injury, fevers, chills, burning with micturition, urinary frequency, urgency, hesitancy, bladder or bowel dysfunction, numbness or tingling of the perineum or bilateral legs. Denies any recent surgical procedures, any known immune compromising conditions, personal history of cancer, or IV drug usage. Reports he has a history of chronic lower back pain, for which he was previously taking Percocet for but has not been taking for 2 months due to his recent gastric surgery. MD elicited complaint: back pain Pertinent past history: prior back pain and kidney stones Onset (ago): hour(s) Timing: intermittent Quality: aching Location: right lower back Exacerbating factors: movement and walking Relieving factors: immobilization Work related injury: No Related Data Home Medications Medication Instructions Recorded Confirmed oxycodone-acetaminophen 5 mg-325 2 tab PO Q4H PRN 07/14/20 12/10/21 mg tablet (Percocet) Previous Rx's Medication Instructions Recorded diclofenac sodium 3 % topical gel 1 appl TOPICAL BID #100 g 12/23/21 Allergies Allergy/AdvReac Type Severity Reaction Status Date / Time morphine [MORPHINE] Allergy Mild CONFUSION, Verified 12/23/21 18:20 hives, rash/ itchy Review of Systems Review of Systems: Constitutional: No weight loss, fever, chills, weakness or fatigue. HEENT: No visual loss, blurred vision, double vision. No hearing loss, sneezing, congestion, runny nose or sore throat. Skin: No rash or itching. Cardiovascular: No chest pain, chest pressure or chest discomfort. No palpitations or pedal edema. Respiratory: No shortness of breath, cough or sputum production. Gastrointestinal: No anorexia, nausea, vomiting or diarrhea. No abdominal pain or blood in stool. Genitourinary: No burning micturition. No urinary frequency or incontinence. Neurologic: No headache, dizziness, syncope, unilateral weakness, ataxia, numbness or tingling in the extremities. No change in bowel or bladder control. Musculoskeletal: + Back pain as noted in HPI. No joint pain or stiffness. Hematologic: No bleeding or bruising. Lymphatics: No enlarged lymph nodes. Psychiatric:No depression or anxiety. Yes all other systems are reviewed and are negative PMFSH Past Medical History Attestation statement: The following information was validated with the patient. Source: old records reviewed Medical History Binge eating disorder DJD (degenerative joint disease) DVT (deep venous thrombosis) H. pylori infection Kidney stones Knee pain Liver fibrosis Morbid obesity Pre-op evaluation Sleep apnea with use of continuous positive airway pressure (CPAP) Steatosis, liver Varicose veins of left lower extremity with inflammation Vitamin B1 deficiency Vitamin D deficiency Surgical History Hx of appendectomy Hx of gastric bypass Hx of varicose vein stripping Family History Family History Mother Hypertension Father No problems noted. Brother No problems noted. Sister No problems noted. Sister No problems noted. Sister No problems noted. Sister No problems noted. Sister No problems noted. Sister No problems noted. Brother No problems noted. Brother No problems noted. Daughter No problems noted. Social History Social History Are you a primary daycare manager to a significant other at home: No Do you presently have visiting nurse or other home services: Yes ([facility] 1 hour daily) Alcohol intake: former Patient Tobacco Use Status: Never used Tobacco Advance Directives: No Advance Directives Information Provided: Yes Physical Exam 2 Vital Signs: Vital Signs: Last Vital Signs Temp 98.0 F 12/23/21 18:20 Pulse 66 12/23/21 18:20 Resp 16 12/23/21 18:20 BP 128/85 12/23/21 18:20 Pulse Ox 99 12/23/21 18:20 BMI result Body Mass Index 32.1 Vital signs have been reviewed as normal and appeared to be correct. Blood pressure normal.? Heart rate normal.? Respiration rate normal. Temperature normal.? Oxygen saturation normal. Appearance: Alert.?Oriented to person, place and time. No acute distress.? Normal affect. Eyes: Pupils equal, round and reactive to light.? ENT: Pharynx normal.?? Neck: Normal inspection.? Neck supple.?? CVS: Heart sounds normal. Normal heart rate and rhythm.? Pulses normal; bilateral radial pulses 2+, bilateral posterior tibial/dorsalis pedis pulses 2+.? Respiratory: No respiratory distress.? Lung sounds clear to auscultation bilaterally?? Abdomen: Soft and non-tender. Normoactive bowel sounds. No pulsatile mass.?? Skin: Skin warm and dry.? Normal skin color.? Normal skin turgor.?? Extremities: No lower extremity edema.? No calf ttp? Back: + mild muscular tenderness over right lumbar region and upper right lateral hip. No CVA tenderness. No midline spinal tenderness, step-off's, or deformity. Full ROM intact in bilateral lower extremities. Straight leg test positive on right; Straight leg test negative on left. No rashes, lesions, areas of induration or fluctuance, or signs of infection noted. Pain made worse with abduction of right lower extremity. Neuro: Moves all extremities spontaneously. 5/5 strength in hip extensi on/flexion, abduction, adduction. Sensation to light touch intact bilaterally. Patellar and Achilles reflex 2+ bilaterally. No ataxia, gait normal and steady. No focal neuro deficits. Course Course Course Narrative: Patient is a 46-year-old male being evaluated for right lower back/hip pain. Atraumatic in nature, no palpable step-offs or deformities, therefore would defer x-ray imaging at this time. Urinalysis reveals hematuria, therefore will obtain CBC and BMP in addition to CT of the abdomen and pelvis to exclude renal calculi, hydronephrosis, or additional intra-abdominal pathology. Reevaluation(s) Reevaluation #1: CBC is overall unremarkable. Chemistries and renal function are normal. CT of the abdomen and pelvis reveals no renal calculi or hydronephrosis. Discussed this finding with patient, and recommend outpatient follow-up with Urology for further evaluation of microscopic hematuria. At this time, suspect pain is most consistent with muscular pain, although cannot completely exclude herniated disc. On neurological exam there are no deficits. Not consistent with spinal fracture, spinal infection, epidural abscess, AAA, epidural abscess, or dissection. No high risk past medical history including incontinence, fever, immunosuppression, recent surgery or lumbar puncture, coagulopathy, significant trauma, recent unintentional weight loss, pulsatile mass, history of cancer, history of TB, history of IV drug use that would warrant MRI or CT. Not consistent with pyelonephritis, urinary tract infection, renal calculi, appendicitis, diverticulitis. On exam no concern for cauda equina syndrome. Plan for discharge home, given recent bariatric surgery patient is to avoid NSAIDs, will provide new prescription for diclofenac cream in additional to Tylenol as needed for pain, and follow-up with primary care provider, discussed reasons to return back to the emergency department, and patient agreed with plan. Time: 21:45 MDM - Back Pain/Injury Lab Data Result diagrams: 12/23/21 20:44 12/23/21 20:44 Labs: Lab Results 12/23/21 12/23/21 12/23/21 Range/Units 19:43 20:44 20:44 WBC 4.4 L (4.8-10.8) X10*3/uL RBC 4.58 L (4.60-5.80) X10*6/uL Hgb 13.5 L (14.0-18.0) g/dl Hct 40.7 L (42.0-52.0) % MCV 88.9 (80.0-98.0) fL MCH 29.5 (27.0-33.0) pg MCHC 33.2 (31.0-36.0) g/dl RDW 14.8 (11.0-16.0) % Plt Count 158 L (160-400) X10*3/uL MPV 10.4 (9.4-12.4) fL Immature Gran % (Auto) 0.0 (0.0-0.4) % Neut % (Auto) 55.5 (45-73) % Lymph % (Auto) 30.9 (20-40) % [place] % (Auto) 10.6 (2-11) % Eos % (Auto) 2.3 (0-4) % Baso % (Auto) 0.7 (0-2) % Lymph # (Auto) 1.4 (1.2-4.9) X10*3/uL [place] # (Auto) 0.5 (0.1-1.2) X10*3/uL Eos # (Auto) 0.1 (0.0-0.4) X10*3/uL Baso # (Auto) 0.0 (0.0-0.2) X10*3/uL Abs Immat Gran (auto) 0.00 (0.00-0.03) X10*3/uL Absolute Neuts (auto) 2.5 (2.0-8.3) x10*3/uL Absolute Nucleated RBC 0.000 (0.0-0.012) X10*3/uL Nucleated RBC % (auto) 0.0 (0.0-0.2) /100WBC Sodium 140 (135-145) mmol/L Potassium 3.6 (3.3-5.1) mmol/L Chloride 99 (96-108) mmol/L Carbon Dioxide 26 (22-29) mmol/L Anion Gap 19 (12-20) BUN 14 (9-16) mg/dL Creatinine 0.82 (0.5-1.4) mg/dL Estim Creat Clear Calc 117.1 Estimated GFR > 60 Random Glucose 67 D (60-115) mg/dL Calcium 9.7 (8.4-10.2) mg/dL Urine Color YELLOW Urine Appearance CLEAR Urine pH 5.5 (5.0-8.0) Ur Specific [place] >= 1.030 H (1.005-1.025) Urine Protein NEG (NEG-TRACE) MG/DL Urine Glucose (UA) NEG (NEG) MG/DL Urine Ketones >=80 (NEG) MG/DL Urine Blood 1+ H (NEG) Urine Nitrite NEG (NEG) Ur Leukocyte Esterase NEG (NEG) Urine RBC 1-4 (0) /HPF Urine WBC 0-2 (0-4) /HPF Ur Squamous Epith Cells TRACE /LPF Ur Renal Epithelial Cell TRACE /LPF Urine Bacteria NONE /LPF Urine Mucus 3+ /LPF Discharge Plan Discharge Clinical Impression: Lower back pain, Microscopic hematuria Patient Disposition: Home, Self-Care Additional Instructions: Use diclofenac cream to the area as needed for pain. You can take Tylenol 500 mg, 2 tablets (1,000mg) every 4-6 hours as needed for pain, but not to exceed 3 doses daily (3,000mg). Contact urology to schedule follow-up visit in 5 days for the blood in urine. Please contact your primary care provider to schedule a follow-up visit within 3-5 days for your back pain. You may return to the emergency department with any new or worsening symptoms or concerns. Prescriptions: New diclofenac sodium 3 % gel 1 appl topical BID Qty: 100 0RF No Action oxycodone-acetaminophen [Percocet] 5-325 mg Tablet 2 tab PO Q4H PRN (Reason: Pain, Moderate) 0RF Referrals: Joao Pratt MD [Physician] - 5 days (Microscopic hematuria) Interventions: ED Discharge Assessment Last Done: 12/23/21 22:01 Discharge Date/Time: 12/23/21 22:04
[2021-12-23 19:50] LABS: Appearance Urine CLEAR; Color Urine YELLOW; Glucose Urine UA NEG (NEG); Leukocyte Esterase Urine NEG (NEG); Nitrite Urine NEG (NEG); PH 5.5 (5.0-8.0); Specific Gravity - Urine >= 1.030 (1.005-1.025); UACC Culture Trigger NO; Urine Blood 1+ (NEG); Urine Ketones >=80 MG/DL (NEG); Urine Protein NEG (NEG-TRACE)
[2021-12-23 20:13] LABS: Mucus Urine 3+ /LPF; Renal Epithelial Cells Urine TRACE /LPF; Squamous Epithelial Cell Urine TRACE /LPF; WBC Urine 0-2 /HPF (0-4)
[2021-12-23 20:51] LABS: MANUAL DIFF FLAG NO
[2021-12-23 20:54] LABS: Basophils Percent Auto 0.7 % (0-2); Eosinophils Absolute Auto 0.1 X10*3/uL (0.0-0.4); Eosinophils Percent Auto 2.3 % (0-4); Hematocrit 40.7 % (42.0-52.0); Hemoglobin 13.5 g/dl (14.0-18.0); Lymphocytes Absolute Auto 1.4 X10*3/uL (1.2-4.9); Lymphocytes Percent Auto 30.9 % (20-40); Mean Corpuscular HGB Conc 33.2 g/dl (31.0-36.0); Mean Corpuscular Hemoglobin 29.5 pg (27.0-33.0); Mean Corpuscular Volume 88.9 fL (80.0-98.0); Mean Platelet Volume 10.4 fL (9.4-12.4); Monocytes Absolute Auto 0.5 X10*3/uL (0.1-1.2); Monocytes Percent Auto 10.6 % (2-11); Neutrophils Absolute Auto 2.5 x10*3/uL (2.0-8.3); Neutrophils Percent Auto 55.5 % (45-73); Platelet Count 158 X10*3/uL (160-400); Red Blood Count 4.58 X10*6/uL (4.60-5.80); Red Cell Distribution Width 14.8 % (11.0-16.0); White Blood Count 4.4 X10*3/uL (4.8-10.8)
[2021-12-23 21:08] LABS: Anion Gap 19 (12-20); Blood Urea Nitrogen 14 mg/dL (9-16); Calcium 9.7 mg/dL (8.4-10.2); Carbon Dioxide 26 mmol/L (22-29); Chloride 99 mmol/L (96-108); Creatinine Clr Calc Pharmacy 117.1; Estimated Glomerular Filt Rate > 60; Glucose Random 67 mg/dL (60-115); Potassium 3.6 mmol/L (3.3-5.1); Sodium 140 mmol/L (135-145)
== END 2021-12-23 22:04 | disposition home or self-care (01) ==
PROVIDERS: Nurse Practitioner Family; Emergency Provider Emergency Medicine
DX: M54.50 Low back pain, unspecified (principal); R31.29 Other microscopic hematuria; I10 Essential (primary) hypertension; Z90.3 Acquired absence of stomach [part of]
CPT/HCPCS: 36415; 74176; 80048; 81001; 85025; 99284

== ENCOUNTER → 2022-01-09 08:06 | Outpatient (BNVA) | payer OTHER, SELFPAY | PROVIDERS: Visit Provider Physician Assistant | DX: E66.9 Obesity, unspecified (principal); Z68.30 Body mass index [BMI] 30.0-30.9, adult; Z98.84 Bariatric surgery status | CPT/HCPCS: 99212 ==

== ENCOUNTER → 2022-01-30 14:55 | Outpatient (BNVA) | payer OTHER, SELFPAY | PROVIDERS: PCP Internal Medicine Geriatric Medicine | DX: R31.9 Hematuria, unspecified (principal) | CPT/HCPCS: 99202 ==

== ENCOUNTER → 2022-02-13 11:00 | Outpatient (BNVA) | payer OTHER, SELFPAY | PROVIDERS: PCP Internal Medicine Geriatric Medicine; Visit Provider Physician Assistant | DX: E66.3 Overweight (principal); Z90.3 Acquired absence of stomach [part of] | CPT/HCPCS: Q3014 ==

== ENCOUNTER → 2022-03-13 14:00 | Outpatient (BNVA) | payer OTHER, SELFPAY | PROVIDERS: PCP Internal Medicine Geriatric Medicine; Visit Provider Physician Assistant | DX: E66.3 Overweight (principal); Z90.3 Acquired absence of stomach [part of]; Z68.28 Body mass index [BMI] 28.0-28.9, adult | CPT/HCPCS: Q3014 ==

== ENCOUNTER 2022-04-01 07:58 | Outpatient (REF) | payer OTHER, SELFPAY ==
[2022-04-01 08:18] LABS: MANUAL DIFF FLAG NO
[2022-04-01 08:34] LABS: Basophils Percent Auto 0.9 % (0-2); Eosinophils Percent Auto 0.6 % (0-4); Hematocrit 44.1 % (42.0-52.0); Hemoglobin 14.3 g/dl (14.0-18.0); Imm Gran Abs Auto 0.01 X10*3/uL (0.00-0.03); Imm Gran Pct Auto 0.3 % (0.0-0.4); Lymphocytes Percent Auto 30.6 % (20-40); Mean Corpuscular HGB Conc 32.4 g/dl (31.0-36.0); Mean Corpuscular Hemoglobin 29.8 pg (27.0-33.0); Mean Corpuscular Volume 91.9 fL (80.0-98.0); Mean Platelet Volume 9.9 fL (9.4-12.4); Monocytes Absolute Auto 0.4 X10*3/uL (0.1-1.2); Neutrophils Absolute Auto 1.9 x10*3/uL (2.0-8.3); Neutrophils Percent Auto 56.6 % (45-73); Platelet Count 197 X10*3/uL (160-400); Red Cell Distribution Width 13.2 % (11.0-16.0); White Blood Count 3.3 X10*3/uL (4.8-10.8)
[2022-04-01 08:41] LABS: Estimated Average Glucose 100 mg/dL; Hemoglobin A1c % 5.1 %
[2022-04-01 09:22] LABS: Ferritin 556 ng/mL (20-250); Insulin 5 uU/mL (2-29); TSH reflex Free T4 0.74 uIU/mL (0.32-4.0); Vitamin D 25-OH Total 35.2 ng/mL (>30)
[2022-04-01 09:24] LABS: Alanine Aminotransferase < 6 U/L (0-40); Albumin Level 4.4 g/dL (3.5-5.0); Alkaline Phosphatase 61 U/L (39-117); Anion Gap 11 (12-20); Aspartate Amino Transferase 10 U/L (5-37); Bilirubin Total 1.3 mg/dL (0.0-1.0); Blood Urea Nitrogen 21 mg/dL (9-16); C Reactive Protein 0.43 mg/dL (< or = 0.50); Calcium 9.8 mg/dL (8.4-10.2); Carbon Dioxide 28 mmol/L (22-29); Chloride 104 mmol/L (96-108); Cholesterol 226 mg/dL; Estimated Glomerular Filt Rate > 60; Glucose Random 88 mg/dL (60-115); HDL Cholesterol 46 mg/dL; Iron 60 mcg/dL (45-160); LDL Cholesterol Calculated 166 mg/dl; Percent Iron Saturation 22 % (15-50); Potassium 4.4 mmol/L (3.3-5.1); Sodium 139 mmol/L (135-145); Total Iron Binding Capacity 277 mcg/dL (228-428); Total Protein 7.3 g/dL (6.5-8.0); Triglycerides 74 mg/dL; Unsaturated Iron Binding 217 ug/dL
[2022-04-01 09:59] LABS: Folate 3.1 ng/mL (> or = 4.0); Vitamin B12 516 pg/mL (200-900)
[2022-04-02 12:42] LABS: PTHI 50 pg/mL (16-77)
[2022-04-07 00:48] LABS: Zinc 75 mcg/dL (60-130)
[2022-04-07 21:52] LABS: Vitamin A 33 mcg/dL (38-98)
[2022-04-09 10:02] LABS: Vitamin B1 <6 nmol/L (8-30)
== END 2022-04-01 07:59 | disposition home or self-care (01) ==
LOC: HO.LAB 07:58
PROVIDERS: PCP Internal Medicine Geriatric Medicine; Visit Provider Physician Assistant
DX: E66.3 Overweight (principal); Z90.3 Acquired absence of stomach [part of]
CPT/HCPCS: 36415; 80053; 80061; 82306; 82607; 82728; 82746; 83036; 83525; 83540; 83970; 84425; 84443; 84590; 84630; 85025; 86140

== ENCOUNTER 2022-04-29 09:15 | Emergency (ER) | payer OTHER, SELFPAY ==
[2022-04-29 09:25] VITALS: BP 136/82; PULSE 65; RESP 18; TEMP 36.6; O2SAT 98; BMI 27.6
--- NOTE | 2022-04-29 10:42 | ED_ITS ---
HPI - Recheck/Abnormal Lab/Rx General Chief Complaint: Recheck/Abnormal Lab/Rx Stated Complaint: high blood pressure Time Seen by Provider: 04/29/22 09:41 Source: patient Mode of arrival: ambulatory Limitations: no limitations History of Present Illness HPI narrative: 46-year-old male with a past medical history of hypertension currently on 12.5 mg of hydrochlorothiazide daily, obesity status post gastrectomy on 10/14/2021 presenting to the ED with complaints of elevated blood pressure this morning when he woke up of 199/100 with associated frontal headache. Reports that he did not take his blood pressure medications this morning said he decided to come here for further evaluation treatment. He reports that his headache as resolved on its own. He reports over the past 6 months since he received the gastrectomy every morning after he takes his hydrochlorothiazide he is dizzy this is why he decided not to take his blood pressure medication this morning when his blood pressure was high. He reports he did lose significant amount of weight since he was started on the blood pressure medication and his diet has improved. He denies any other symptoms related to this including any dizziness at this time he denies having dizziness this morning, changes in vision, nausea/vomiting, jaw pain, paresthesias, chest pain, shortness of breath, dyspnea on exertion, orthopnea, palpitations, abdominal pain, back pain, lower extremity edema or calf tenderness or any other symptoms complaints or concerns at this time. complaint: abnormal lab (Elevated blood pressure at home) Initial visit (ago): hour(s) (Prior to arrival) Associated symptoms: other (He had a frontal headache that has resolved) Related Data Home Medications Medication Instructions Recorded Confirmed oxycodone-acetaminophen 5 mg-325 2 tab PO Q4H PRN Pain, Moderate 07/14/20 03/13/22 mg tablet (Percocet) hydrochlorothiazide 12.5 mg tablet 12.5 mg PO DAILY 01/09/22 03/13/22 Previous Rx's Medication Instructions Recorded diclofenac sodium 3 % topical gel 1 appl topical BID #100 grams 12/23/21 calcium citrate 315 mg-vitamin D3 1 tab PO BID #60 tabs 03/13/22 5 mcg (200 unit) tablet (Calcium Citrate + D) folic acid 1 mg tablet 1 mg PO DAILY #30 tabs 04/02/22 vitamin A palmitate 10,000 unit 10,000 unit PO DAILY #30 tabs 04/08/22 tablet thiamine HCl (vitamin B1) 100 mg 50 mg PO DAILY #30 tabs 04/09/22 tablet Allergies Allergy/AdvReac Type Severity Reaction Status Date / Time morphine [MORPHINE] Allergy Mild CONFUSION, Verified 04/29/22 09:25 hives, rash/ itchy Review of Systems Review of Systems: Constitutional : No Weight loss, No Fever, No Chills, No Night Sweats, No Fatigue, No Malaise ENT/Mouth : No Hearing loss, No Ear Pain, No Nasal Congestion, No Sinus Pain, No Hoarseness, No sore throat, No Rhinorrhea, No Swallowing Difficulty Eyes: No Eye Pain, No Swelling, No Redness, No Foreign Body, No Discharge, No Vision Changes Cardiovascular : No Chest Pain, No SOB, No Dyspnea on Exertion, No Orthopnea, No Edema, No Palpitations Respiratory : No Cough, No Sputum, No Wheezing, No Smoke Exposure, No Dyspnea Gastrointestinal : No Nausea, No Vomiting, No Diarrhea, No Constipation, No abdominal Pain, No Hematochezia, No Melena Genitourinary : no irregular bleeding, No Dysuria, No Urinary Frequency, No Hematuria, No Urinary Incontinence, No Urgency, No Flank Pain, No Urinary Flow Changes, No Hesitancy Musculoskeletal : No joint pain, No Myalgias, No Joint Swelling Skin : No Skin Lesions, No rash Neuro : + resolved headache, No Weakness, No Numbness, No Paresthesias, No Loss of Consciousness, No Dizziness Psych : No Anxiety/Panic, No Depression, No SI/HI/AH/VH, No Social Issues, Heme/Lymph: No Bruising, No Bleeding,No Lymphadenopathy Endocrine : No Polyuria, No Polydipsia, No Temperature Intolerance Yes all other systems are reviewed and are negative [facility] Past Medical History Attestation statement: The following information was validated with the patient. Source: old records reviewed and nursing notes reviewed Medical History Binge eating disorder DJD (degenerative joint disease) DVT (deep venous thrombosis) H. pylori infection Hematuria of unknown cause Kidney stones Knee pain Liver fibrosis Morbid obesity Pre-op evaluation Sleep apnea with use of continuous positive airway pressure (CPAP) Steatosis, liver Varicose veins of left lower extremity with inflammation Vitamin B1 deficiency Vitamin D deficiency Surgical History Hx of appendectomy Hx of gastric bypass Hx of varicose vein stripping Family History Family History Mother Hypertension Father No problems noted. Brother No problems noted. Sister No problems noted. Sister No problems noted. Sister No problems noted. Sister No problems noted. Sister No problems noted. Sister No problems noted. Brother No problems noted. Brother No problems noted. Daughter No problems noted. Social History Social History Are you a primary day care center director to a significant other at home: No Do you presently have visiting nurse or other home services: Yes (INSPECTOR OPEN DIE 1 hour daily) Alcohol intake: former Patient Tobacco Use Status: Never used Tobacco Advance Directives: No Advance Directives Information Provided: No Physical Exam Vital Signs: Vital Signs: Last Vital Signs Temp 97.8 F 04/29/22 09:25 Pulse 65 04/29/22 09:25 Resp 18 04/29/22 09:25 BP 136/82 04/29/22 09:25 Pulse Ox 98 04/29/22 09:25 O2 Del Method 04/29/22 09:25 BMI result Body Mass Index 27.6 vital signs have been reviewed as normal and appeared to be correct. Blood pressure 136/82. Heart rate normal. Respiration rate normal. Temperature normal. Oxygen saturation normal. Appearance: Alert. Oriented X3. No acute distress. Head: Normal external exam. Normocephalic. Atraumatic. Eyes: PERRLA. EOMI. Conjunctiva and sclera normal. Eyelids normal. ENT: Pharynx normal. Uvula midline. Moist mucous membranes. No lesions/ulcerations or masses noted on the tongue. Normal voice. No trismus noted. No drooling noted. No muffled voice noted. Neck: Normal inspection. Neck supple. FROM. No adenopathy. Thyroid Normal. No tracheal deviation noted. No crepitus is noted. No meningeal signs. No neck mass noted. No signs of trauma noted. CVS: Normal heart rate and rhythm. Heart sound normal. Pulses normal throughout. No murmurs/rales/gallops. Respiratory: No respiratory distress. Painless inspiration. Breath sounds normal. No wheezes/rales/rhonchi noted. Chest nontender. No crepitus is noted. No signs of trauma noted. No accessory muscle usage noted or decreased air movement noted. No signs of trauma. Abdomen: Soft and nontender. Bowel sounds normal in all 4 quadrants. No distention noted. No organomegaly noted. No visible injury noted. Back: Full range of motion noted. Skin: Skin warm and dry. Normal skin color. Normal skin turgor. No rashes/lesions/lacerations noted. Extremities: No lower extremity edema. No calf tenderness is noted. Extremities exhibit normal range of motion and nontender. Neuro: Oriented X 3. No motor deficit. No sensory deficit. Reflexes normal. Normal steady gait. No focal neuro deficits noted. CN's II-XII intact bilaterally? Vascular: + radial pulses. Normal cap refill. No cyanosis noted to upper extremity nails Course Course Course Narrative: 46-year-old male with a past medical history of hypertension currently on 12.5 mg of hydrochlorothiazide daily, obesity status post gastrectomy on 10/14/2021 presenting to the ED with complaints of elevated blood pressure this morning when he woke up of 199/100 with associated frontal headache. Reports that he did not take his blood pressure medications this morning said he decided to come here for further evaluation treatment. He reports that his headache as resolved on its own. He reports over the past 6 months since he received the gastrectomy every morning after he takes his hydrochlorothiazide he is dizzy this is why he decided not to take his blood pressure medication this morning when his blood pressure was high. He reports he did lose significant amount of weight since he was started on the blood pressure medication and his diet has improved. At this time he denies any complaints or concerns. Therefore I discussed this patient with Dr. Rockwell and we believe that the patient has lost a significant amount of weight and patient might not need his blood pressure medication any longer. I did orthostatic vitals which were normal. And patient's blood pressure is on the lower side 120s over 80s therefore due to with his weight loss and improving his diet he might not have high blood pressure anymore and this is probably why he is having dizziness after taking his blood pressure medication every morning. We explained to the patient that we are unsure why his blood pressure was elevated this morning although he should take it twice at least 1 hour apart to confirm high blood pressure and write it down. We also explained to him that he should not take his hydrochlorothiazide 12.5 mg if he is having dizziness after he is taking the blood pressure medication. He should also right his blood pressure Wednesday/Wednesday and Wednesday in the morning and at night and documented in bring it to his primary care provider and his primary can further instruct him. Otherwise no additional labs or imaging indicated as patient denies any symptoms at this time. We discussed this in length and patient understands agrees with this plan. MDM - Recheck/Abnormal Lab/Rx Medical Records Attestation: I reviewed the patient's medical records. Discharge Plan Discharge Clinical Impression: Blood pressure check Patient Disposition: Home, Self-Care Instructions: How to Take a Blood Pressure (ED) Additional Instructions: If you are developing dizziness after taking your blood pressure medication every morning this could be because your blood pressures dropping too low especi ally since you have lost a significant amount of weight and your diet has improved it could be possible that you do not need blood pressure medication any longer. Do not take your blood pressure medications this week instead take your blood pressure on Wednesday/Wednesday and Wednesday in the morning and at night and documented and make a follow-up appointment within 1-2 weeks with her primary care provider and bring this documentation with you and your primary care provider can further instructed due to either continue taking it or not taking your blood pressure medication any longer. Return if any new or worsening symptoms. Prescriptions: No Action folic acid 1 mg tablet 1 mg PO DAILY Qty: 30 5RF vitamin A palmitate 10,000 unit tablet 10,000 unit PO DAILY Qty: 30 6RF thiamine HCl (vitamin B1) 100 mg tablet 50 mg PO DAILY Qty: 30 11RF oxycodone-acetaminophen [Percocet] 5-325 mg Tablet 2 tab PO Q4H PRN (Reason: Pain, Moderate) diclofenac sodium 3 % gel 1 appl topical BID Qty: 100 0RF hydrochlorothiazide 12.5 mg tablet 12.5 mg PO DAILY calcium citrate-vitamin D3 [Calcium Citrate + D] 315 mg-5 mcg (200 unit) tablet 1 tab PO BID Qty: 60 11RF Referrals: Name,MD Logan [Primary Care Provider] - 5 days
[2022-04-29 10:52] VITALS: BP 118/76; PULSE 92
== END 2022-04-29 11:17 | disposition home or self-care (01) ==
PROVIDERS: Emergency Provider Internal Medicine; PCP Internal Medicine Geriatric Medicine
DX: Z01.30 Encounter for examination of blood pressure without abnormal findings (principal); R42 Dizziness and giddiness; Z90.3 Acquired absence of stomach [part of]
CPT/HCPCS: 99282; 99283

== ENCOUNTER 2022-05-04 20:11 | Emergency (ER) | payer OTHER, SELFPAY ==
[2022-05-04 20:58] VITALS: BP 107/61; PULSE 59; RESP 18; TEMP 36.7; O2SAT 98; BMI 26.9
[2022-05-04] MEDS: Fluorescein Sodium STRIP 1 STRIP EYE-RIGHT (21:48)
[2022-05-04] MEDS: Tetracaine HCl/PF 0.5% Oph Sol 4 ML DROPS 1 DROP EYE-RIGHT (21:48)
--- NOTE | 2022-05-04 22:03 | ED.EYEPROB ---
HPI - Eye Problem General Chief complaint: Eye Problems Stated complaint: ?foreign object in eye Time Seen by Provider: 05/04/22 21:20 Source: patient Limitations: no limitations History of Present Illness HPI Narrative: This is a 46-year-old male who today developed the sensation of a foreign body in his right eye. He denies working with dust or doing anything in particular whether would have been particulate matter that got in his eye. He was not welding. He notes that it is right eye is tearing and has mild discomfort, worse in the upper half. Denies any left eye pain. Denies any headache, nausea vomiting, fever Related Data Home Medications Medication Instructions Recorded Confirmed oxycodone-acetaminophen 5 mg-325 2 tab PO Q4H PRN Pain, Moderate 07/14/20 03/13/22 mg tablet (Percocet) hydrochlorothiazide 12.5 mg tablet 12.5 mg PO DAILY 01/09/22 03/13/22 Previous Rx's Medication Instructions Recorded diclofenac sodium 3 % topical gel 1 appl topical BID #100 grams 12/23/21 calcium citrate 315 mg-vitamin D3 1 tab PO BID #60 tabs 03/13/22 5 mcg (200 unit) tablet (Calcium Citrate + D) folic acid 1 mg tablet 1 mg PO DAILY #30 tabs 04/02/22 vitamin A palmitate 10,000 unit 10,000 unit PO DAILY #30 tabs 04/08/22 tablet thiamine HCl (vitamin B1) 100 mg 50 mg PO DAILY #30 tabs 04/09/22 tablet erythromycin 5 mg/gram (0.5 %) eye 0.5 inch ophthalmic (eye) QID 5 05/04/22 ointment days #3.5 grams Allergies Allergy/AdvReac Type Severity Reaction Status Date / Time morphine [MORPHINE] Allergy Mild CONFUSION, Verified 04/29/22 09:25 hives, rash/ itchy Review of Systems Constitutional: Constitutional: Denies fever(s) and Denies headache(s) Eyes: Eyes: Reports as per HPI, Reports change in vision (Dotty right eye), Reports eye discharge and Reports irritation ENT: Reports system reviewed and no additional complaints, except as documented and Denies headache(s) Gastrointestinal: Gastrointestinal: Denies nausea and Denies vomiting Neurologic: Denies headache(s) PMFSH Past Medical History Medical History Binge eating disorder DJD (degenerative joint disease) DVT (deep venous thrombosis) H. pylori infection Hematuria of unknown cause Kidney stones Knee pain Liver fibrosis Morbid obesity Pre-op evaluation Sleep apnea with use of continuous positive airway pressure (CPAP) Steatosis, liver Varicose veins of left lower extremity with inflammation Vitamin B1 deficiency Vitamin D deficiency Surgical History Hx of appendectomy Hx of gastric bypass Hx of varicose vein stripping Family History Family History Mother Hypertension Father No problems noted. Brother No problems noted. Sister No problems noted. Sister No problems noted. Sister No problems noted. Sister No problems noted. Sister No problems noted. Sister No problems noted. Brother No problems noted. Brother No problems noted. Daughter No problems noted. 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 SCHEDULE CLERK 1 hour daily) Alcohol intake: never Patient Tobacco Use Status: Never used Tobacco Use of substances other than those prescribed or required for medical reasons: No Advance Directives: No Advance Directives Information Provided: No Physical Exam Vital Signs: Vital Signs: Last Vital Signs Temp 98.0 F 05/04/22 20:58 Pulse 59 05/04/22 20:58 Resp 18 05/04/22 20:58 BP 107/61 05/04/22 20:58 Pulse Ox 98 05/04/22 20:58 O2 Del Method 05/04/22 20:58 BMI result Body Mass Index 26.9 Const: General: cooperative and healthy appearing HEENT: Head: Yes normal to inspection Eyes: Other: Tiny spicule imbedded in conjunctiva of left thigh just beyond the cornea at about 03:00 o'clock. Examination of the upper lid and lower lid revealed no foreign body. Examination after placing for para cane and forcing revealed mild haziness in the area where the foreign body had been, no distinct linear or other deep abrasions. Periorbital: periorbital findings normal Eyelids: Yes eyelids normal Conjunctivae: conjunctivae normal (Very mild injection right eye) Corneas: corneas normal Pupils: Equal, round and reactive pupils present EOM: EOMs intact bilaterally Neuro: Cranial nerves: Yes Equal, round and reactive pupils present Course Course Course Narrative: The particle in the right eye was removed with a sterile cotton swab. Examination with a Wood's lamp after placing tetracaine and fluorescein was done as noted on the physical examination. Patient was treated with erythromycin ophthalmic ointment to the right eye, which is used for the next 5 days as dispensed/prescribed. Discharge Plan Discharge Clinical Impression: Foreign body in conjunctival sac, right eye, initial encounter, Abrasion, corneal Patient Disposition: Home, Self-Care Instructions: Corneal Abrasion (ED), Eye Foreign Body (ED) Additional Instructions: Use erythromycin ophthalmic ointment as prescribed. Use ibuprofen or acetaminophen for discomfort. Your eye should feel better within the next few days. Follow-up an data base administrator if you have any progressive or ongoing symptoms Prescriptions: New erythromycin 5 mg/gram (0.5 %) ointment 0.5 inch ophthalmic (eye) QID 5 Days Qty: 3.5 0RF No Action folic acid 1 mg tablet 1 mg PO DAILY Qty: 30 5RF vitamin A palmitate 10,000 unit tablet 10,000 unit PO DAILY Qty: 30 6RF thiamine HCl (vitamin B1) 100 mg tablet 50 mg PO DAILY Qty: 30 11RF oxycodone-acetaminophen [Percocet] 5-325 mg Tablet 2 tab PO Q4H PRN (Reason: Pain, Moderate) diclofenac sodium 3 % gel 1 appl topical BID Qty: 100 0RF hydrochlorothiazide 12.5 mg tablet 12.5 mg PO DAILY calcium citrate-vitamin D3 [Calcium Citrate + D] 315 mg-5 mcg (200 unit) tablet 1 tab PO BID Qty: 60 11RF Referrals: Jay Martinez [Physician] -
[2022-05-04] MEDS: Erythromycin Base 0.5% Oph Oin 1 GM TUBE 1 CM EYE-RIGHT (22:06)
== END 2022-05-04 22:20 | disposition home or self-care (01) ==
PROVIDERS: Emergency Provider Emergency Medicine; PCP Internal Medicine Geriatric Medicine
DX: S05.01XA Injury of conjunctiva and corneal abrasion without foreign body, right eye, initial encounter (principal); T15.11XA Foreign body in conjunctival sac, right eye, initial encounter; X58.XXXA Exposure to other specified factors, initial encounter; Y93.9 Activity, unspecified; Y92.9 Unspecified place or not applicable; Y99.9 Unspecified external cause status
CPT/HCPCS: 99283; 99284

== ENCOUNTER → 2022-06-23 14:39 | Outpatient (BNVA) | payer OTHER, SELFPAY | PROVIDERS: PCP Internal Medicine Geriatric Medicine; Visit Provider Surgery Vascular Surgery | DX: I83.11 Varicose veins of right lower extremity with inflammation (principal) | CPT/HCPCS: 99212 ==

== ENCOUNTER → 2022-07-01 09:03 | Outpatient (BNVA) | payer OTHER, SELFPAY | PROVIDERS: PCP Internal Medicine Geriatric Medicine; Referring Provider Internal Medicine Geriatric Medicine; Visit Provider Physician Assistant Surgical | DX: Z90.3 Acquired absence of stomach [part of] (principal); L98.7 Excessive and redundant skin and subcutaneous tissue | CPT/HCPCS: 99212 ==

== ENCOUNTER 2022-09-09 10:05 | Outpatient (REF) | payer OTHER, SELFPAY ==
--- NOTE | ~2022-09-09 | US_ITS ---
EXAMINATION: US LOWER EXTREMITY VENOUS (REFLUX EXAM), BILATERAL CLINICAL INDICATION: Chronic venous insufficiency with lower extremity varicose veins. History of left great saphenous vein ablation and ambulatory phlebectomy COMPARISON: 02/10/2021 TECHNIQUE: Color flow triplex imaging and compression Doppler was performed to evaluate both the deep and the superficial systems bilaterally. To evaluate the superficial system, the examination was performed in the upright position. Color-flow Doppler ultrasound and compression ultrasound were utilized. In addition, maneuvers were utilized to demonstrate reflux. FINDINGS: 1. DEEP VENOUS ULTRASOUND OF THE RIGHT LOWER EXTREMITY: Common Femoral Vein: Compressible, normal respiratory variation and augmented flow. Femoral Vein: Compressible, normal color flow and augmentation. Popliteal Vein: Compressible, normal augmentation. Deep Reflux: There is no evidence of reflux in the deep system in either the common femoral vein or the popliteal vein. There is no evidence of a Cash's cyst. 2. SUPERFICIAL ULTRASOUND WITH DOPPLER OF RIGHT LOWER EXTREMITY: GREAT SAPHENOUS VEIN: Saphenofemoral Junction: 0.7 cm; Reflux: 0 ms Proximal Thigh: 0.6 cm; Reflux: 2252 ms Mid Thigh: 0.2 cm; Reflux: 0 ms Above Knee: 0.2 cm; Reflux: 0 ms At Knee: 0.2 cm; Reflux: 0 ms Below Knee: 0.6 cm; Reflux: 2744 ms Mid Calf: 0.2 cm; Reflux: 0 ms Ankle: 0.2 cm; Reflux: 0 ms DUPLICATED MEDIAL GREAT SAPHENOUS VEIN: Diameter: 0.6 cm Reflux: None DUPLICATED LATERAL GREAT SAPHENOUS VEIN: Diameter: None Imaged Reflux: NA SMALL SAPHENOUS VEIN: Proximal: 0.1 cm; Reflux: 0 ms Distal: 0.1 cm; Reflux: 0 ms VEIN OF GIACOMINI: None Imaged. PERFORATORS: Location: Proximal and mid calf Size: 0.1 to 0.4 cm Reflux: 2672 ms in the mid calf VARICOSITIES: Location: Posterior calf, medial proximal thigh, mid thigh and proximal calf Size: 0.2 to 0.4 cm Reflux: Ranging from 2576 ms to 3264 ms 3. DEEP VENOUS ULTRASOUND OF THE LEFT LOWER EXTREMITY: Common Femoral Vein: Compressible, normal respiratory variation and augmented flow. Femoral Vein: Compressible, normal color flow and augmentation. Popliteal Vein: Compressible, normal augmentation. Deep Reflux: There is no significant reflux in the deep system in either the common femoral vein or the popliteal vein. There is no evidence of a Cash's cyst. 4. SUPERFICIAL ULTRASOUND WITH DOPPLER OF LEFT LOWER EXTREMITY: GREAT SAPHENOUS VEIN: Saphenofemoral Junction: 0.8 cm; Reflux: 2368 ms Proximal Thigh: 0.9 cm; Reflux: 2272 ms Mid Thigh: Not visualized cm; Reflux: 0 ms Above Knee: 0.6 cm; occluded At Knee: 0.8 cm; Reflux: 0 ms. Partially thrombosed Below Knee: 0.8 cm; Reflux: 2500 ms. Partially thrombosed Mid Calf: 0.2 cm; Reflux: 0 ms Ankle: 0.4 cm; Reflux: 0 ms DUPLICATED MEDIAL GREAT SAPHENOUS VEIN: Diameter: None Imaged Reflux: NA DUPLICATED LATERAL GREAT SAPHENOUS VEIN: Diameter: 0.3 cm Reflux: None SMALL SAPHENOUS VEIN: Proximal: 0.1 cm; Reflux: 0 ms Distal: 0.1 cm; Reflux: 0 ms VEIN OF GIACOMINI: None Imaged. PERFORATORS: Location: None significant Size: NA Reflux: NA VARICOSITIES: Location: Proximal thigh, knee, proximal calf and distal calf Size: 0.3 to 0.5 cm Reflux: Ranging from 1736 ms to 2960 ms US/US venous duplex LE BI IMPRESSION: Right: Focal areas of severe reflux in the great saphenous vein in the proximal thigh and proximal calf. There are multiple refluxing varicose veins throughout the right lower extremity as described above Left: Residual patent to the great saphenous vein in the proximal thigh with severe reflux. Great saphenous vein in the mid thigh through the knee is occluded consistent with prior ablation. There is partial recanalization of the proximal calf great saphenous vein with severe reflux. Multiple reflux in the varicose veins are seen throughout the left lower extremity.
== END 2022-09-09 10:06 | disposition home or self-care (01) ==
LOC: HO.US 10:05
PROVIDERS: Visit Provider Surgery Vascular Surgery
DX: I83.893 Varicose veins of bilateral lower extremities with other complications (principal)
CPT/HCPCS: 93970

== ENCOUNTER → 2022-10-14 08:41 | Outpatient (BNVA) | payer OTHER, SELFPAY | PROVIDERS: PCP Internal Medicine Geriatric Medicine; Visit Provider Physician Assistant Surgical | DX: L98.7 Excessive and redundant skin and subcutaneous tissue (principal); Z90.3 Acquired absence of stomach [part of] | CPT/HCPCS: 99212 ==

== ENCOUNTER → 2022-10-26 10:16 | Outpatient (BNVA) | payer OTHER, SELFPAY | PROVIDERS: PCP Internal Medicine Geriatric Medicine; Visit Provider Surgery | DX: Z13.89 Encounter for screening for other disorder (principal) ==

== ENCOUNTER → 2022-10-30 07:58 | Outpatient (BNVA) | payer OTHER, SELFPAY | PROVIDERS: PCP Internal Medicine Geriatric Medicine; Visit Provider Surgery | DX: M79.3 Panniculitis, unspecified (principal); L98.7 Excessive and redundant skin and subcutaneous tissue; K91.2 Postsurgical malabsorption, not elsewhere classified; E51.9 Thiamine deficiency, unspecified; E55.9 Vitamin D deficiency, unspecified; F50.81 Binge eating disorder; Z68.23 Body mass index [BMI] 23.0-23.9, adult; Z90.3 Acquired absence of stomach [part of]; Z98.84 Bariatric surgery status; Z98.890 Other specified postprocedural states | CPT/HCPCS: Q3014 ==

== ENCOUNTER 2022-10-31 08:34 | Outpatient (REF) | payer OTHER, SELFPAY ==
[2022-10-31 08:56] LABS: MANUAL DIFF FLAG NO
[2022-10-31 09:18] LABS: Basophils Percent Auto 0.8 % (0-2); Eosinophils Percent Auto 1.1 % (0-4); Hematocrit 46.5 % (42.0-52.0); Hemoglobin 15.1 g/dl (14.0-18.0); Imm Gran Abs Auto 0.01 X10*3/uL (0.00-0.03); Imm Gran Pct Auto 0.3 % (0.0-0.4); Lymphocytes Absolute Auto 0.9 X10*3/uL (1.2-4.9); Lymphocytes Percent Auto 22.8 % (20-40); Mean Corpuscular HGB Conc 32.5 g/dl (31.0-36.0); Mean Corpuscular Volume 92.3 fL (80.0-98.0); Mean Platelet Volume 10.3 fL (9.4-12.4); Monocytes Absolute Auto 0.4 X10*3/uL (0.1-1.2); Monocytes Percent Auto 9.7 % (2-11); Neutrophils Absolute Auto 2.4 x10*3/uL (2.0-8.3); Neutrophils Percent Auto 65.3 % (45-73); Platelet Count 203 X10*3/uL (160-400); Red Blood Count 5.04 X10*6/uL (4.60-5.80); Red Cell Distribution Width 13.7 % (11.0-16.0); White Blood Count 3.7 X10*3/uL (4.8-10.8)
[2022-10-31 09:22] LABS: Prothrombin Time 11.9 SEC (10.0-13.1)
[2022-10-31 09:25] LABS: Partial Thromboplastin Time 30.7 SEC (26.0-36.4)
[2022-10-31 09:30] LABS: Estimated Average Glucose 94 mg/dL; Hemoglobin A1c % 4.9 %
[2022-10-31 09:42] LABS: Alanine Aminotransferase 8 U/L (0-40); Albumin Level 4.3 g/dL (3.5-5.0); Alkaline Phosphatase 54 U/L (39-117); Anion Gap 14 (12-20); Aspartate Amino Transferase 13 U/L (5-37); Bilirubin Total 1.4 mg/dL (0.0-1.0); Blood Urea Nitrogen 16 mg/dL (9-16); Calcium 9.7 mg/dL (8.4-10.2); Carbon Dioxide 27 mmol/L (22-29); Chloride 105 mmol/L (96-108); Estimated Glomerular Filt Rate > 60; Glucose Random 92 mg/dL (60-115); Potassium 5.1 mmol/L (3.3-5.1); Sodium 141 mmol/L (135-145); Total Protein 6.9 g/dL (6.5-8.0)
== END 2022-10-31 08:35 | disposition home or self-care (01) ==
LOC: HO.LAB 08:34
PROVIDERS: PCP Internal Medicine Geriatric Medicine; Visit Provider Surgery
DX: K91.2 Postsurgical malabsorption, not elsewhere classified (principal); Z90.3 Acquired absence of stomach [part of]
CPT/HCPCS: 36415; 80053; 83036; 85025; 85610; 85730

== ENCOUNTER → 2022-11-03 14:45 | Outpatient (BNVA) | payer OTHER, SELFPAY | PROVIDERS: PCP Internal Medicine Geriatric Medicine; Visit Provider Surgery Vascular Surgery | DX: I83.12 Varicose veins of left lower extremity with inflammation (principal) | CPT/HCPCS: 99212 ==

== ENCOUNTER 2022-11-06 06:37 | Day surgery (SDC) | payer OTHER, SELFPAY ==
[2022-10-28 10:09] VITALS: BMI 23.0
--- NOTE | 2022-10-30 23:25 | MHC.SHP ---
Pre-Procedural Eval Section A Date of Service: 10/30/22 The patient is an INPATIENT: No The History & Physical has been completed within 30 days and I have reviewed it.: Yes Section B Chief Complaint: Excessive and redundant skin and subcutaneous tiss Relevant Family History (Specify if Yes): No Relevant Social History: None Present Medications: None Medical History: No relevant PMH History of Previous Operations: Relevant previous surgery/procedure and date(s) (lap sleeve gastrectomy) Allergies: Allergies Allergy/AdvReac Type Severity Reaction Status Date / Time morphine [MORPHINE] Allergy Mild CONFUSION, Verified 10/30/22 11:26 hives, rash/ itchy Review of Systems Sugical H&P ROS: Negative: Constitution, Cardiovascular, Respiratory, Neurological, Psychiatric, Hem-Onc, Allergic/Immunologic, Gastrointestinal, Genitourinary, Musculoskeletal, Integumentary, Endocrine and Eyes/Ears/Nose/Throat Exam Surgical H&P Exam: Normal: HEENT, Normal: Heart, Normal: Lungs, Normal: Extremities, Normal: Abdomen, Normal: Skin and Normal: Neurological Plan Diagnosis/Plan: Unchanged I have reviewed the history and physical and performed a pertinent physical examination on my patient. No changes have occurred unless specified. Time Spent With Patient Time: Total time managing care of this patient today ____ minutes.
[2022-11-05 15:00] LABS: COVID-19 Test Negative (Negative); IDNOW Serial# 16C4AD1C
[2022-11-06] VITALS (13 sets, daily range): BP systolic 122–146; BP diastolic 70–86; PULSE 73–98; RESP 16–18; TEMP 36.2–36.8; O2SAT 96–100; BMI 24.3
[2022-11-06] MEDS: Lactated Ringers 1,000 ML 80 ML IVCONT (07:43)
--- NOTE | 2022-11-06 08:17 | P.CONAN_ITS ---
HPI - Anesthesia Eval Consult details Narrative: 47 yo male patient. S/p Laparoscopic Sleeve Gastrectomy 10/11. For Panniculectomy. PMFSH Active Problems Active Problems: All Active Problems (Updated 11/06/22 @ 08:35 by Brittany Kim MD) Varicose veins of left lower extremity with inflammation (Acute) Postgastrectomy malabsorption (Acute) Hypertension (Acute)- No longer taking medication for HTN Status post sleeve gastrectomy (Acute) BMI 24.4 Intra-abdominal adhesions (Acute) Varicose veins of right lower extremity with inflammation (Acute) Excess skin (Acute) Hematuria of unknown cause (Acute) Liver fibrosis (Acute) Steatosis, liver (Acute) Sleep apnea with use of continuous positive airway pressure (CPAP) (Acute) Back pain Past Medical History Medical History Binge eating disorder DJD (degenerative joint disease) DVT (deep venous thrombosis) H. pylori infection Hematuria of unknown cause Kidney stones Knee pain Liver fibrosis Morbid obesity Pre-op evaluation Sleep apnea with use of continuous positive airway pressure (CPAP) Steatosis, liver Varicose veins of left lower extremity with inflammation Vitamin B1 deficiency Vitamin D deficiency Family History Family History Mother Hypertension Father No problems noted. Brother No problems noted. Sister No problems noted. Sister No problems noted. Sister No problems noted. Sister No problems noted. Sister No problems noted. Sister No problems noted. Brother No problems noted. Brother No problems noted. Daughter No problems noted. 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 If so, by whom?: No Are you DNR?: No Advance Directives: No Advance Directives Information Provided: Yes (brochure mailed) Advance Directives on File: No Recently lost weight without trying: No Eating poorly because of decreased appetite: No Nutrition Risks: No Nutritional Risk Poor oral hygiene: No (one loose tooth upper left) Meds Allergies Allergy/AdvReac Type Severity Reaction Status Date / Time morphine [MORPHINE] Allergy Mild CONFUSION, Verified 11/03/22 14:49 hives, rash/ itchy Active Medications: Current Medications Lactated Ringer's (Lr) 1,000 mls @ 80 mls/hr IVCONT .[id number] JODI Last Admin: 11/06/22 07:43 Dose: 80 mls/hr Home Medications Medication Instructions Recorded Confirmed Last Taken Type oxycodone 5 mg tablet 5 mg PO BID PRN Severe Pain (Scale 07/01/22 10/30/22 Unknown History Score 7-10) Exam Exam Date and Time: November 06, 2022 0817 Height,Weight and Vital Signs: Height 5 ft 6 in Weight 68.492 kg Last Vital Signs Temp 97.2 F 11/06/22 07:01 Pulse 73 11/06/22 07:01 Resp 18 11/06/22 07:01 BP 131/85 11/06/22 07:01 Pulse Ox 99 11/06/22 07:01 O2 Del Method 11/06/22 07:01 Pertinent Lab Results Pertinent Lab Results: Laboratory Tests 10/31/22 11/05/22 08:55 14:37 COVID-19 (CAR[facility]) Negative COVID-19 Clin Com See Note Blood Type O Positive Antibody Screen NEGATIVE Airway Mallampati Class: II TM Dist: >3cm Neck ROM: Full Loose/Missing/Broken Teeth: Yes (1 missing tooth bottom left back) Heart: RRR Lungs: CTAB Assessment and Plan Assessment Anesthesia Assessment: Anesthesia Plan Discussed and Chart Reviewed Final Anesthetic Review Family History of Problems with Anesthesia: No History of Problems with Anesthesia: No NPO: Yes ASA Class: II Final Preanesthetic Review: No Changes in Pt Med Stat, Meds/Allgs Chart Reviewed, Consent Obtained/Reviewed and Anes Risks/Benef Reviewed Patient Risk: Intermediate Procedure Risk: Intermediate Assessment/Block/Sedation in SS: Assess/Block/Sedation- Anesthetic Plan Anesthetic Plan: GA Disposition: Standard PACU
--- NOTE | 2022-11-06 09:42 | PM.OP ---
Brief Operative Note Date of Service: 11/06/22 Pre-op diagnosis: Excessive skin due to massive weight loss Post-op diagnosis: same Procedure: PROCEDURE: Panniculectomy with umbilical transposition and bilateral subcutaneous fat flaps, repair of 6 separate incisional and incarcerated ventral hernias, excision of cicatrix INDICATION: This a 47 year old male who underwent laparoscopic sleeve gastrectomy on 10/14/2021. She had an excellent result achieving a BMI of 27.4 kg/m2 with a total weight loss of 141.8lbs, or 48.6% of her TBWL. As a result, she has developed panniculitis which has not resolved despite continuous use of clotrimazole ointment as well as skin irritation. On exam she has extreme skin laxity due to massive weight loss, with the abdominal pannus completely hanging 4cm below the pubis. Panniculectomy was recommended. In addition the patient had a midline incision that was poorly healed and had several ventral hernias. Additionally the patient had a transverse right lower quadrant incision. We discussed the two options for the panniculectomy of using a combined vertical and horizontal incisions or just a horizontal (bikini) incision. It was my recommendation to do only horizontal incision based on her body habitus and skin laxity. The patient agreed with this. Risks and complications were discussed with the patient including bleeding, infection, umbilical loss, flap necrosis, asymmetry, dehiscence, seroma, VTE. The patient understood the risks and was in agreement to proceed with surgery. PROCEDURE: The incisions were appropriately marked at the preop area with the patient standing and laying down. The incision were appropriately designed to fully incorporate the right lower quadrant transverse incision. In addition, the plan was made to excise the cicatrix of the midline incision in order to allow adequate mobility for the flaps to come together without tension. After induction of general anesthesia, pneumatic compression devices were placed. The patient was prepped and draped in the usual sterile manner and the incisions were marked again and confirmed. The skin was infiltrated with lidocaine and epinephrine. The #10 blade scalpel was used for the large incisions and the #15 blade scalpel for the umbilicus. Cautery was used to divide the subcutaneous tissues until the fascia was identified. Then I used the Thunderbeat (Olympus) to separate the pannus from the fascia. The inferior incision was made initially and I mobilized the flap for a several centimeters cephalad to the umbilicus. The umbilicus was incised circumferentially and detached from the surrounding tissues all the way to the fascia while its stalk was preserved. The upper flap was mobilized cephalad all the way to the xyphoid process to take down all the scr tissue from the previous midline incision. This revealed 6 separate ventral hernias with contained incarcerated omentum or transverse colon. The 6 hernias were mobilized appropriately and those that contained omentum, the incarcerated omentum was excised to allow easier reduction of the hernia contents. The 6 hernias were closed with several interrupted #0 Ethibond sutures. Following that the skin cicatrix was excised by removing the damaged skin while I maintained the subcutaneous fat. With the patient in reflex position I confirmed that the skin flaps were appropriate and would allow for the tissues to come together with reasonable tension. At that point a horizontal incision was made just above the umbilicus. #10 blade was used for the skin, cautery for the dermis and the Thunderbeat for the remaining tissues. A subcutaneous fat flap was raised from the upper skin flap in order to fill the space under the skin and support the closure of the two flaps. In addition the inferior flap was mobilized caudally for a few centimeters to create a space for the subcutaneous fat flap as well as relieve tension from the closure. A circumferential incision was made at the area where the umbilicus would be re-implanted. The umbilicus was appropriately oriented and was delivered through the defect and was secured in place with a Rachel. No bleeding was noted anywhere. One ANGY drain was placed from the left corner of the horizontal incision across the wound and was secured in place with a 2.0 Nylon suture. A total of 14ml of Zynrelef was applied on top of the fascia and under the subcutaneous fat flaps. The subcutaneous fat flap was secured under the inferior flap with several interrupted 3.0 Monocryl sutures. The two flaps were brought together and were attached at the midline of the horizontal incision with a #3.0 Monocryl suture. At that point the umbilicus was properly oriented and was re-approximated to the skin with 8 interrupted 3.0 Monocryl sutures. In a similar fashion the skin flaps as well as the vertical incision (from the excision of the cicatrix) were re-approximated with multiple 3.0 Monocryl sutures. The skin in the 3 incisions was closed in all incisions and umbilicus with 4.0 Monocryl sutures. Steri-strips, xeroform gauzes and gauzes were used to cover the incisions. An abdominal binder was also placed. The was awaken and was transferred to the recover room in a stable condition. I was present and performed the entire procedure. Mr Johnson was the nurse first assist. Chace Kline MD, PhD, FACS Surgeon: Ravindra Kline MD Surgeon: Ravindra Kline MD Anesthesia: GETA and local Was an Internal Medicine Nurse used for this Procedure?: No Internal Medicine Nurse: Shady Johnson Estimated blood loss (mL): 10 IV fluids (mL): 2,000 Urine output (mL): 0 (No Buckley to record output) Pathology: other (abdominal pannus) Condition: stable Disposition: PACU
[2022-11-06] MEDS: Acetaminophen 1,000 MG/100 ML PIGGYBACK 400 MG IV (16:57)
[2022-11-06] MEDS: ondansetron HCL 4 MG/2 ML VIAL IVPUSH (17:17)
--- NOTE | 2022-11-06 17:19 | PC.NURSE ---
patient complaining of nausea medicated for nausea. resting eyes closed, resp easy regular
[2022-11-06 17:41] LABS: Glucose, Whole Blood 130 mg/dL (60-115)
--- NOTE | 2022-11-06 17:42 | PC.NURSE ---
patient awake conversing, taking sips po fluids.
--- NOTE | 2022-11-06 18:16 | PC.NURSE ---
patient attempt void at bedside, started to dry heave with resolve nausea after vomiting small amount po fluids. unable void. bladder scan [address] hilliard anesthesia aware patient is refusing catheter at this time.
--- NOTE | 2022-11-06 19:34 | PC.NURSE ---
ronit fields, at bedside to change abdominal dressing at bedside and evaluate patient. dressing changed sterile technique. patient reports nausea and dizziness mostly resolved cleared for discharge to home.
[2022-11-06] MEDS: Metoclopramide HCl 10 MG/2 ML VIAL 5 MG IVPUSH (20:01)
--- NOTE | 2022-11-06 20:14 | PC.NURSE ---
patient assisted to dress at bedside, able stand without dizziness complaint. upon ambulation to wheelchair vomited clear gastric contents. patient medicated with iv reglan following vomiting and reports nausea resolved immediately upon vomiting request for discharge to home. dr. hilliard in pacu patient cleared for discharge home.
== END 2022-11-06 20:18 | disposition home or self-care (01) ==
PROVIDERS: Physician Assistant Surgical; Visit Provider Surgery
PROC: 0JB80ZZ Excision of Abdomen Subcutaneous Tissue and Fascia, Open Approach (ICD-10-PCS; CPT 15830; principal; 2022-11-06 09:00)
DX: L98.7 Excessive and redundant skin and subcutaneous tissue (principal); K91.2 Postsurgical malabsorption, not elsewhere classified; Z98.84 Bariatric surgery status; Z90.3 Acquired absence of stomach [part of]; F50.81 Binge eating disorder; E55.9 Vitamin D deficiency, unspecified; E51.9 Thiamine deficiency, unspecified; K76.0 Fatty (change of) liver, not elsewhere classified; Z68.23 Body mass index [BMI] 23.0-23.9, adult; Z79.899 Other long term (current) drug therapy; Z88.8 Allergy status to other drugs, medicaments and biological substances; G47.33 Obstructive sleep apnea (adult) (pediatric); Z99.89 Dependence on other enabling machines and devices; Z20.822 Contact with and (suspected) exposure to COVID-19
CPT/HCPCS: 15830; 15847; 82947; 86850; 86900; 86901; 87635; 88302; 88304; 88305; C9088; J0131; J0690; J1100; J1170; J2250; J2405; J2765; J3010; J3370

== ENCOUNTER → 2022-11-13 08:17 | Outpatient (BNVA) | payer OTHER, SELFPAY | PROVIDERS: PCP Internal Medicine Geriatric Medicine; Visit Provider Physician Assistant Surgical | DX: Z48.89 Encounter for other specified surgical aftercare (principal); Z98.84 Bariatric surgery status; Z90.3 Acquired absence of stomach [part of] | CPT/HCPCS: 99212 ==

== ENCOUNTER → 2022-11-20 13:03 | Outpatient (BNVA) | payer OTHER, SELFPAY | PROVIDERS: PCP Internal Medicine Geriatric Medicine; Visit Provider Physician Assistant Surgical | DX: Z13.89 Encounter for screening for other disorder (principal) ==

== ENCOUNTER → 2022-11-25 09:01 | Outpatient (BNVA) | payer OTHER, SELFPAY | PROVIDERS: PCP Internal Medicine Geriatric Medicine; Visit Provider Physician Assistant Surgical ==

== ENCOUNTER → 2022-11-27 13:36 | Outpatient (BNVA) | payer OTHER, SELFPAY | PROVIDERS: PCP Internal Medicine Geriatric Medicine; Visit Provider Physician Assistant Surgical ==

== ENCOUNTER → 2022-12-02 10:11 | Outpatient (BNVA) | payer OTHER, SELFPAY | PROVIDERS: PCP Internal Medicine Geriatric Medicine; Visit Provider Physician Assistant Surgical | DX: Z98.890 Other specified postprocedural states (principal) | CPT/HCPCS: 99212 ==

== ENCOUNTER → 2022-12-17 12:45 | Outpatient (BNVA) | payer OTHER, SELFPAY | PROVIDERS: PCP Internal Medicine Geriatric Medicine; Visit Provider Physician Assistant Surgical | DX: E66.3 Overweight (principal); Z68.26 Body mass index [BMI] 26.0-26.9, adult; Z98.890 Other specified postprocedural states | CPT/HCPCS: 99212 ==

== ENCOUNTER → 2022-12-30 10:31 | Outpatient (BNVA) | payer OTHER, SELFPAY | PROVIDERS: PCP Internal Medicine Geriatric Medicine; Visit Provider Physician Assistant Surgical | DX: E66.3 Overweight (principal); Z98.890 Other specified postprocedural states; Z68.25 Body mass index [BMI] 25.0-25.9, adult | CPT/HCPCS: 99212 ==

== ENCOUNTER → 2023-01-29 09:19 | Outpatient (BNVA) | payer OTHER, SELFPAY | PROVIDERS: PCP Internal Medicine Geriatric Medicine; Visit Provider Physician Assistant Surgical | DX: E66.9 Obesity, unspecified (principal); Z98.890 Other specified postprocedural states; Z68.26 Body mass index [BMI] 26.0-26.9, adult | CPT/HCPCS: 99212 ==

== ENCOUNTER → 2023-02-02 15:04 | Outpatient (BNVA) | payer OTHER, SELFPAY | PROVIDERS: PCP Internal Medicine Geriatric Medicine; Visit Provider Surgery Vascular Surgery | DX: I83.12 Varicose veins of left lower extremity with inflammation (principal); Z98.84 Bariatric surgery status; Z98.890 Other specified postprocedural states | CPT/HCPCS: 99212 ==

== ENCOUNTER → 2023-02-08 11:16 | Outpatient (BNVA) | payer OTHER, SELFPAY | PROVIDERS: PCP Internal Medicine Geriatric Medicine; Visit Provider Dietitian, Registered | DX: Z98.84 Bariatric surgery status (principal); Z90.3 Acquired absence of stomach [part of]; Z71.3 Dietary counseling and surveillance | CPT/HCPCS: 97803 ==

== ENCOUNTER 2023-02-25 20:20 | Emergency (ER) | payer OTHER, SELFPAY ==
[2023-02-25 21:17] VITALS: BP 115/68; PULSE 71; RESP 16; TEMP 36.3; O2SAT 97; BMI 27.1
--- NOTE | 2023-02-25 23:05 | ED_ITS ---
HPI - General Adult General Chief complaint: General Medical Stated complaint: ball left side of stomach Time Seen by Provider: 02/25/23 22:15 Source: patient Mode of arrival: ambulatory Limitations: no limitations History of Present Illness HPI narrative: 47 yold male presents to the ED for mass on left side of abdomen that has been present for over a month that was evaluated by bariatric surgeon who states mosl t cysts or seroma. Patient denies any redness, increase swelling, trauma, fever, chills, rash, nausea, vomitting, chest pain, shortness of breath, or diarhea. Related Data Home Medications Medication Instructions Recorded Confirmed oxycodone 5 mg tablet 5 mg PO BID PRN Severe Pain (Scale 07/01/22 01/29/23 Score 7-10) Previous Rx's Medication Instructions Recorded thiamine HCl (vitamin B1) 100 mg 50 mg PO DAILY #30 tabs 04/09/22 tablet vitamin A 3,000 mcg (10,000 unit) 1 cap PO DAILY #90 caps 09/22/22 capsule docusate sodium 100 mg capsule 100 mg PO DAILY #30 caps 11/12/22 (Colace) Allergies Allergy/AdvReac Type Severity Reaction Status Date / Time morphine [MORPHINE] Allergy Mild CONFUSION, Verified 02/02/23 15:17 hives, rash/ itchy Review of Systems Review of Systems: ball on left side of stomach Yes all other systems are reviewed and are negative PMFSH Past Medical History Medical History Binge eating disorder DJD (degenerative joint disease) DVT (deep venous thrombosis) H. pylori infection Hematuria of unknown cause Kidney stones Knee pain Liver fibrosis Morbid obesity Pre-op evaluation Sleep apnea with use of continuous positive airway pressure (CPAP) Steatosis, liver Varicose veins of left lower extremity with inflammation Vitamin B1 deficiency Vitamin D deficiency Surgical History Hx of appendectomy Hx of gastric bypass Hx of varicose vein stripping Family History Family History Mother Hypertension Father No problems noted. Brother No problems noted. Sister No problems noted. Sister No problems noted. Sister No problems noted. Sister No problems noted. Sister No problems noted. Sister No problems noted. Brother No problems noted. Brother No problems noted. Daughter No problems noted. 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) Alcohol intake: never Patient Tobacco Use Status: Never used Tobacco Advance Directives: No Advance Directives Information Provided: No Physical Exam ED Vital Signs: Vital Signs - 24 hr 02/25/23 21:17 Temperature 97.3 F Pulse Rate 71 Respiratory Rate 16 Blood Pressure 115/68 Pulse Oximetry 97 Oxygen Delivery Method Room Air BMI result Body Mass Index 27.1 Const General: cooperative, healthy appearing, comfortable, no acute distress, well developed, alert, awake and Physically active Orientation/consciousness: oriented to person, oriented to place, oriented to time and patient oriented x3 HENMT Head: Yes normal to inspection, Yes No palpable skull fracture present, Yes normocephalic, Yes atraumatic and No abrasion Eyes General: appearance normal, both eyes and all related structures Neck Neck: Yes normal visual inspection, Yes full ROM, Yes no lymphadenopathy, Yes no meningeal signs, Yes trachea midline, Yes supple, No anterior neck swelling and No tender Chest Chest palpation & inspection: normal inspection of the chest and normal palpation of entire chest wall Resp Effort & Inspection: normal respiratory effort and able to speak in complete sentences Auscultation: clear to auscultation bilaterally Cardio Jugular venous distension: no JVD Heart sounds: S1 normal heart sound present and S2 normal heart sound present GI Other: positive for left lower abdomen ball that is non-tender, non-fluctulance, and non-erytehmatous. Presents for over a month Inspection: Yes normal to inspection and No abdominal wall ecchymosis Palpation (GI): Soft to palpation, not firm, nontender, no guarding and not rigid General: No CVA tenderness and Yes no CVA tenderness Back/Spine/Pelvis Back: no CVA tenderness, No CVA tenderness and No back tenderness Skin General skin exam: no rashes or lesions noted and elasticity normal Neuro General: oriented to person, oriented to place, oriented to time, patient oriented x3, gait normal, tone normal, moves all extremities, Normal light touch and pain sensation, no meningeal signs, no focal motor deficits, CN's II-XI intact bilaterally and normal sensation to monofilament Extrem General: Yes normal to inspection and Yes full ROM Psych Appearance: grossly normal, well kempt and not disheveled Course Course Course Narrative: Abdominal exam is benign Medical Decision Making Medical Decision Making [facility] Narrative: 47 yold male presents to the ED for chronic mass on abdomen after surgery panulectomy. Patient evaluated by gastric surgeon who states mass is just se lisa. patient denies any increase size, redness, nausea, vomitting, or abdominal pain. abdominal exam is bening. patient did not want abdominal CT scan done or other medical workup. [facility] will follow up with Surgeon. Differential Diagnosis Differential Diagnoses: The differential diagnosis associated with the presentation includes (hernia, diverticulitis, cellulitis, abscess, ) Admission/Observation Consideration of admission/observation: Escalation of care including admission/observation considered Discharge Plan Discharge Clinical Impression: Encounter for wound re-check, Abdominal mass, left lower quadrant Patient Disposition: Home, Self-Care Instructions: Abdominal Pain (ED), Seroma (DC) Additional Instructions: Return to the ED immediately for any increase size of mass, redness, abdominal pain, fever, chills, diarrhea, pus drainage, foul odor, diarrhea, dysuria, hematuria, or any other concerning symptoms. please follow up with Your PCP and bariatric Surgeon. Prescriptions: No Action thiamine HCl (vitamin B1) 100 mg tablet 50 mg PO DAILY Qty: 30 11RF vitamin A 10,000 unit capsule 1 cap PO DAILY Qty: 90 2RF docusate sodium [Colace] 100 mg capsule 100 mg PO DAILY Qty: 30 2RF oxycodone 5 mg tablet 5 mg PO BID PRN (Reason: Severe Pain (Scale Score 7-10)) Stand Alone Forms: Work/School Release Interventions: ED Discharge Assessment Last Done: 02/25/23 23:58 Discharge Date/Time: 02/25/23 23:58 Print Language: Bahraini
== END 2023-02-25 23:58 | disposition home or self-care (01) ==
PROVIDERS: Emergency Provider Internal Medicine
DX: Z48.00 Encounter for change or removal of nonsurgical wound dressing (principal); R19.04 Left lower quadrant abdominal swelling, mass and lump; I10 Essential (primary) hypertension; Z90.3 Acquired absence of stomach [part of]; Z79.899 Other long term (current) drug therapy
CPT/HCPCS: 99283

== ENCOUNTER → 2023-03-22 09:18 | Outpatient (BNVA) | payer OTHER, SELFPAY | PROVIDERS: Visit Provider Surgery Vascular Surgery | DX: I83.12 Varicose veins of left lower extremity with inflammation (principal) | CPT/HCPCS: 36475 ==

== ENCOUNTER 2023-04-05 14:54 | Outpatient (REF) | payer OTHER, SELFPAY ==
--- NOTE | ~2023-04-05 | US_ITS ---
EXAMINATION: US VENOUS ULTRASOUND WITH DOPPLER LOWER EXTREMITY, LEFT CLINICAL INFORMATION: Status post left lower x-ray venous ablation COMPARISON: None available. TECHNIQUE: Ultrasound of the deep veins is performed from the hip to the calf with compression sonography and color and pulse Doppler assessment. Spectral analysis with color-flow imaging is performed. FINDINGS: Status post ablation there is a thrombosed left greater saphenous vein. The clot extends into to the junction of superficial femoral venous junction. It does not extend to the common femoral venous junction. There is normal compression and flow seen in common femoral, superficial femoral, profunda veins. The soft tissues are normal. US/US venous duplex LE LT IMPRESSION: There is thrombus visualized in left greater saphenous vein status post venous ablation. The thrombus extends to the junction of superficial femoral venous junction.
== END 2023-04-05 14:55 | disposition home or self-care (01) ==
LOC: HO.US 14:54
PROVIDERS: Visit Provider Surgery Vascular Surgery
DX: M79.605 Pain in left leg (principal)
CPT/HCPCS: 93971

== ENCOUNTER 2023-04-06 08:55 | Outpatient (AMB) | payer OTHER, SELFPAY ==
--- NOTE | 2023-04-06 08:58 | A.OFFVIS_ITS ---
Intake Intake Visit Reasons: 2 week follow up L GSV RFA 03/22/2023 Intake Note: Patient is here for a 2 week follow up Left GSV RFA 03/22/23, pt stated hes doing well Allergies morphine [MORPHINE] Allergy (Mild, Verified 04/06/23 09:03) CONFUSION, hives, rash/ itchy HPI 2 week follow up L GSV RFA 03/22/2023 HPI Details Very pleasant 47-year-old gentleman presents for follow-up status post left great saphenous vein radiofrequency ablation. He reports improvement overall of the left leg. Swelling and discomfort along with the varicosities have decreased. He is extremely concerned about the right side. He does have similar problems with extremely large varicosities. He now presents for follow- up. Of note postprocedure ultrasound was negative for DVT. [facility] Medical History Binge eating disorder DJD (degenerative joint disease) DVT (deep venous thrombosis) H. pylori infection Hematuria of unknown cause Kidney stones Knee pain Liver fibrosis Morbid obesity Pre-op evaluation Sleep apnea with use of continuous positive airway pressure (CPAP) Steatosis, liver Varicose veins of left lower extremity with inflammation Vitamin B1 deficiency Vitamin D deficiency Surgical History Hx of appendectomy Hx of gastric bypass Hx of varicose vein stripping Family History Mother Hypertension Father No problems noted. Brother No problems noted. Sister No problems noted. Sister No problems noted. Sister No problems noted. Sister No problems noted. Sister No problems noted. Sister No problems noted. Brother No problems noted. Brother No problems noted. Daughter No problems noted. 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) Alcohol intake: never Patient Tobacco Use Status: Never used Tobacco Review of Systems Const Reports as per HPI ENT Reports no additional complaints Card Denies chest pain, Denies chest pain at rest and Denies chest pain with activity Resp Denies chest congestion and Denies cough GI Reports no additional complaints Musc Details: pain over varicosities, aching of lower extremities, swelling, cramping, heaviness and tiredness, itching Denies abnormal gait Skin/Breast Reports pruritus and Denies wounds Neuro Reports no additional complaints and Denies abnormal gait Psych Denies no additional complaints Physical Exam Const General: cooperative, healthy appearing and comfortable Orientation/consciousness: oriented to person, oriented to place and oriented to time Neck Carotids: no bruits Chest Chest palpation & inspection: normal inspection of the chest and normal palpation of entire chest wall Resp Effort & Inspection: normal respiratory effort and able to speak in complete sentences Cardio Rate: regular rate Heart sounds: S1 normal heart sound present and S2 normal heart sound present Peripheral pulses: Peripheral pulses 2+ throughout GI Inspection: Yes normal to inspection Skin Other: +2 edema, large rope-like varicosities greater than 4 mm right thigh and calf CEAP Classification C4 - skin color changes Ep - Etiology Primary As - superficial veins P - reflux General skin exam: dry skin Neuro General: oriented to person, oriented to place and oriented to time Extrem Right lower extremity: full ROM, normal capillary refill and edema Left lower extremity: full ROM, normal capillary refill and edema Psych Mental Status: mental status grossly normal Results Reviewed Results Reviewed: Brief summary of venous insufficiency testing is as follows: right great saphenous vein: Ablated right small saphenous vein: negative right accessory vein: none present left great saphenous vein: Positive left small saphenous vein: negative left accessory vein: none present Please note there is no evidence of any venous aneurysms or significant tortuosity Assessment & Plan Assessment & Plan (1) Varicose veins of left lower extremity with inflammation: Comment: 02/28/2021 - left great saphenous Cyanoacralate ablation 05/05/2021 - left leg micro 03/22/2023 - left great saphenous radiofrequency ablation Code(s): I83.12 - Varicose veins of left lower extremity with inflammation (2) Varicose veins of right lower extremity with inflammation: Code(s): I83.11 - Varicose veins of right lower extremity with inflammation Plan: This patient has varicose veins with inflammation. They continue to be a source of discomfort for the patient. The patient has tried conservative treatment with compression, leg elevation and exercise program for over 3 months time. They have been compliant with all treatment. This has provided minimal relief for the patient. I do not anticipate this course of treatment will alter the underlying etiology. The patient has been scheduled for lower extremity venous treatment inclusive of --- right great saphenous vein Cyanoacralate ablation. Risks, benefits, and complications of this procedure has been discussed in detail with the patient including but not limited to bleeding, infection, and the development of a DVT. The patient has demonstrated a clear understanding and has consented. We will schedule the patient as soon as possible. Thank you for allowing us to participate in this patient's care. If there are any questions or concerns please do not hesitate to contact us. Orders: Orders US venous duplex LE RT 04/12/23 M79.604 - Pain in right leg Coding Level of Care Code Est Pt Level 4 (38063) Diagnoses Varicose veins of left lower extremity with inflammation I83.12 Varicose veins of right lower extremity with inflammation I83.11
== END 2023-04-06 09:35 | disposition home or self-care (01) ==
PROVIDERS: Visit Provider Surgery Vascular Surgery
DX: I83.12 Varicose veins of left lower extremity with inflammation (principal); I83.11 Varicose veins of right lower extremity with inflammation
CPT/HCPCS: 99214

== ENCOUNTER → 2023-04-06 08:55 | Outpatient (BNVA) | payer OTHER, SELFPAY | PROVIDERS: Visit Provider Surgery Vascular Surgery | DX: I83.11 Varicose veins of right lower extremity with inflammation (principal); I83.12 Varicose veins of left lower extremity with inflammation | CPT/HCPCS: 99212 ==

== ENCOUNTER 2023-04-09 07:22 | Outpatient (AMB) | payer OTHER, SELFPAY ==
--- NOTE | 2023-04-09 07:32 | A.OFFVIS_ITS ---
Intake Intake Visit Reasons: Right GSV Venaseal Intake Note: Patient is here for a Right GSV Venaseal Allergies morphine [MORPHINE] Allergy (Mild, Verified 04/09/23 07:33) CONFUSION, hives, rash/ itchy PFSH Medical History Binge eating disorder DJD (degenerative joint disease) DVT (deep venous thrombosis) H. pylori infection Hematuria of unknown cause Kidney stones Knee pain Liver fibrosis Morbid obesity Pre-op evaluation Sleep apnea with use of continuous positive airway pressure (CPAP) Steatosis, liver Varicose veins of left lower extremity with inflammation Vitamin B1 deficiency Vitamin D deficiency Surgical History Hx of appendectomy Hx of gastric bypass Hx of varicose vein stripping Family History Mother Hypertension Father No problems noted. Brother No problems noted. Sister No problems noted. Sister No problems noted. Sister No problems noted. Sister No problems noted. Sister No problems noted. Sister No problems noted. Brother No problems noted. Brother No problems noted. Daughter No problems noted. 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 The depth and diameter of the vein(s) to be treated was documented. The patient was placed supine on the procedure table and the leg was prepped and draped using sterile technique. Ultasound guidance was again used to localize the access site. 1% lidocaine was injected as a local anesthetic in the subcutaneous tissues at the target location in the GSV in the lower leg. Using ultrasound guidance, access was gained at this location with the 19 gauge thin walled access needle and followed by introduction of a short guidewire, location confirmed with ultrasound. A small, 3 mm incision was made at the access site to allow for introduction and placement of the 7 Fr x7cm introducer/dilator. The dilator and guidewire were removed. The 0.035 guidewire from the VenaSeal kit was then introduced and positioned at the saphenofemoral junction using ultrasound guidance. The 80 cm 7 Fr introducer sheath/dilator was positioned 5cm from the saphenofemoral junction. The guidewire and dilator were removed, and the remaining sheath was flushed with sterile saline, with the syringe remaining in place prior to the next steps. The cyanoacrylate adhesive was precisely primed into the 5 F delivery catheter and this catheter/syringe combination was attached within the dispenser gun. This assembly was introduced through the 7F sheath and positioned 5 cm caudal of the saphenofemoral junction under ultrasound guidance. The steps from the IFU were followed for dispensing amounts, locations and compression times, 2 aliquots proximally with 3 minutes of compression, and 1 aliquot every 3 cm distally with 30 sec of compression along the course of the vessel. Following the last injection and compression sequence, the catheter and introducer sheath were pulled out from the access site. Hemostasis was achieved with manual compression and an adhesive bandage was applied to the incision. Ultrasound confirmed complete coaptation and closure of the treated segments of the GSV, and the absence of any DVT at the saphenofemoral junction. Treatment time was approximately 4 minutes and the vein length treated was 15 cm. The drapes were removed and the patient cleaned and prepared for discharge. Post op ultrasound check is scheduled for 48-72 hours and the patient was given written post-op instructions. 85579 - Endoven Ther Chem Adhes 1st All charges added?: Procedure code (CPT) selection complete Coding Level of Care Code Procedure Only Diagnoses CPT Codes Details - Vascular 3: 01315 - Endoven Ther Chem Adhes 1st ([id number])
== END 2023-04-09 09:31 | disposition home or self-care (01) ==
PROVIDERS: Visit Provider Surgery Vascular Surgery
DX: I83.11 Varicose veins of right lower extremity with inflammation (principal)
CPT/HCPCS: 36482

== ENCOUNTER → 2023-04-09 07:22 | Outpatient (BNVA) | payer OTHER, SELFPAY | PROVIDERS: Visit Provider Surgery Vascular Surgery | DX: I83.11 Varicose veins of right lower extremity with inflammation (principal) | CPT/HCPCS: 36482 ==

== ENCOUNTER 2023-04-12 15:13 | Outpatient (REF) | payer OTHER, SELFPAY ==
--- NOTE | ~2023-04-12 | US_ITS ---
EXAMINATION: TRIPLEX SCANNING OF RIGHT LOWER EXTREMITY; SUPERFICIAL ULTRASOUND WITH DOPPLER OF RIGHT LOWER EXTREMITY CLINICAL INFORMATION: Status post Venaseal of the right great saphenous vein COMPARISON: 09/09/2022. TECHNIQUE: Color flow triplex imaging and compression Doppler were performed as well as superficial ultrasound with Doppler. FINDINGS: RIGHT LOWER EXTREMITY DEEP VENOUS SYSTEM: Respiratory variation, normal compression and augmented flow are noted throughout the lower extremity. The visualized common femoral vein, femoral vein, profunda femoral vein, popliteal vein and the calf veins show no evidence of deep venous thrombosis. There is no evidence of Cash's cyst. SUPERFICIAL VENOUS SYSTEM: The great saphenous vein is occluded from the access site to 1.3 cm before the saphenofemoral junction. There is no extension of thrombus into the deep system. US/US venous duplex LE RT IMPRESSION: 1. No evidence of DVT. 2. Excellent appearance status post ablation of the right great saphenous vein.
== END 2023-04-12 15:14 | disposition home or self-care (01) ==
LOC: HO.US 15:13
PROVIDERS: Visit Provider Surgery Vascular Surgery
DX: M79.604 Pain in right leg (principal)
CPT/HCPCS: 93971

== ENCOUNTER 2023-04-30 09:18 | Outpatient (AMB) | payer OTHER, SELFPAY ==
--- NOTE | 2023-04-30 09:19 | MHC.OFFVISWM ---
Intake VS Expanded 04/30/23 09:20 Height 5 ft 5.5 in Weight 161 lb 4 oz BMI 26.4 BP 129/71 Blood Pressure Location Rt brachial Blood Pressure Position Sitting Pulse 73 Pulse Source Pulse Oximeter Temp 97.4 F Temperature Source Temporal Artery Scan Pulse Oximetry 97 Oxygen Delivery Method Room Air Body Fat 28.8 Body Fat Percentage 17.9 Free Fat Mass 132.4 Muscle Mass 125.8 Visceral Mass 8 Water Mass 96.8 BMR 1,724 Neck Circumference 14.5 in Waist Circumference 34.5 in Intake Visit Reasons: (OV) PO LSG 10/14/21 Accompanied by: Self / Same As Patient Allergies morphine [MORPHINE] Allergy (Mild, Verified 04/30/23 09:19) CONFUSION, hives, rash/ itchy Medication List - Last Reconciled 04/30/23 by Kristen Ho PA-C [id number] 45 mg iron- 800 mcg-120 mcg (Bariatric Multivitamins) caps PO oxycodone 5 mg PO BID PRN HPI HPI Comments History of Present Illness Details Pt is 18 months post op LSG and 6 months post op panniculecotmy. 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 He is at his goal weight and very happy with his meal plan. He is concerned is swelling around his panniculecotmy scar. Meal plan - breakfast - Celebrate 4:1 with UAM 12 pm - yogurt 3pm - fruit 6pm - 5 oz and 1 oz salad and other vegetables 9pm - yogurt Exercise - 5 d / week gym [place] and weights. Post op complications: none CB: resolved DM never HTN: resolved Hyperlipidemia: resolved GERD: 0 Satisfaction with present condition - satisfied [facility] Medical History Binge eating disorder DJD (degenerative joint disease) DVT (deep venous thrombosis) H. pylori infection Hematuria of unknown cause Kidney stones Knee pain Liver fibrosis Morbid obesity Pre-op evaluation Sleep apnea with use of continuous positive airway pressure (CPAP) Steatosis, liver Varicose veins of left lower extremity with inflammation Vitamin B1 deficiency Vitamin D deficiency Surgical History (Updated 04/30/23 @ 09:34 by Kristen Ho PA-C) Hx of appendectomy Hx of gastric bypass Hx of varicose vein stripping Family History Mother Hypertension Father No problems noted. Brother No problems noted. Sister No problems noted. Sister No problems noted. Sister No problems noted. Sister No problems noted. Sister No problems noted. Sister No problems noted. Brother No problems noted. Brother No problems noted. Daughter No problems noted. 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 No edema but some indurataion of transverse scar inferior ot incision. Assessment & Plan Assessment & Plan (1) Status post sleeve gastrectomy: Code(s): Z90.3 - Acquired absence of stomach [part of] Plan: 18 mos s/p LSg with excellent results and very healthy lifestyle routines. No changes made to meal plan - will keep weight between 157 - 162 lbs, will contact me if needs help with this. No changes to exercise - will change routines if he notices increase in weight. We discussed that there is still some induration and that this will decrease over next 3- 6 months. Contact us if it increases. Post op labs ordered today, next appt in Sep 2023 for 2 year appt. I spent 22 minutes in total with patient reviewing/updating records, examining the patient and counseling the patient on weight management as detailed above. (2) S/P panniculectomy: Code(s): Z98.890 - Other specified postprocedural states Orders: Orders Vitamin B12 and Folate Today K76.0 - Fatty (change of) liver, not elsewhere classified, K91.2 - Postsurgical malabsorption, not elsewhere classified, Z90.3 - Acquired absence of stomach [part of] Comprehensive Met. Panel Today K76.0 - Fatty (change of) liver, not elsewhere classified, K91.2 - Postsurgical malabsorption, not elsewhere classified, Z90.3 - Acquired absence of stomach [part of] C Reactive Protein Today K76.0 - Fatty (change of) liver, not elsewhere classified, K91.2 - Postsurgical malabsorption, not elsewhere classified, Z90.3 - Acquired absence of stomach [part of] Ferritin Today K76.0 - Fatty (change of) liver, not elsewhere classified, K91.2 - Postsurgical malabsorption, not elsewhere classified, Z90.3 - Acquired absence of stomach [part of] Hemoglobin A1c Today K76.0 - Fatty (change of) liver, not elsewhere classified, K91.2 - Postsurgical malabsorption, not elsewhere classified, Z90.3 - Acquired absence of stomach [part of] Insulin Today K76.0 - Fatty (change of) liver, not elsewhere classified, K91.2 - Postsurgical malabsorption, not elsewhere classified, Z90.3 - Acquired absence of stomach [part of] IRON PROFILE Today K76.0 - Fatty (change of) liver, not elsewhere classified, K91.2 - Postsurgical malabsorption, not elsewhere classified, Z90.3 - Acquired absence of stomach [part of] Lipid Panel Today K76.0 - Fatty (change of) liver, not elsewhere classified, K91.2 - Postsurgical malabsorption, not elsewhere classified, Z90.3 - Acquired absence of stomach [part of] PTHI Today K76.0 - Fatty (change of) liver, not elsewhere classified, K91.2 - Postsurgical malabsorption, not elsewhere classified, Z90.3 - Acquired absence of stomach [part of] TSH reflex Free T4 Today K76.0 - Fatty (change of) liver, not elsewhere classified, K91.2 - Postsurgical malabsorption, not elsewhere classified, Z90.3 - Acquired absence of stomach [part of] Vitamin A Today K76.0 - Fatty (change of) liver, not elsewhere classified, K91.2 - Postsurgical malabsorption, not elsewhere classified, Z90.3 - Acquired absence of stomach [part of] Vitamin B1 Today K76.0 - Fatty (change of) liver, not elsewhere classified, K91.2 - Postsurgical malabsorption, not elsewhere classified, Z90.3 - Acquired absence of stomach [part of] Vitamin D 25-OH Total Today K76.0 - Fatty (change of) liver, not elsewhere classified, K91.2 - Postsurgical malabsorption, not elsewhere classified, Z90.3 - Acquired absence of stomach [part of] Zinc Today K76.0 - Fatty (change of) liver, not elsewhere classified, K91.2 - Postsurgical malabsorption, not elsewhere classified, Z90.3 - Acquired absence of stomach [part of] Complete Blood Count Auto Diff Today K76.0 - Fatty (change of) liver, not elsewhere classified, K91.2 - Postsurgical malabsorption, not elsewhere classified, Z90.3 - Acquired absence of stomach [part of] Coding Level of Care Code Est Pt Level 4 (22184) Diagnoses Status post sleeve gastrectomy Z90.3 S/P panniculectomy Z98.890
[2023-04-30 09:20] VITALS: BP 129/71; PULSE 73; TEMP 36.3; O2SAT 97; BMI 26.4
== END 2023-04-30 09:49 | disposition home or self-care (01) ==
PROVIDERS: Visit Provider Physician Assistant
DX: E66.3 Overweight (principal); Z68.26 Body mass index [BMI] 26.0-26.9, adult; Z90.3 Acquired absence of stomach [part of]; Z98.84 Bariatric surgery status
CPT/HCPCS: 99214

== ENCOUNTER → 2023-04-30 09:18 | Outpatient (BNVA) | payer OTHER, SELFPAY | PROVIDERS: Visit Provider Physician Assistant | DX: K91.2 Postsurgical malabsorption, not elsewhere classified (principal); K76.0 Fatty (change of) liver, not elsewhere classified; E51.9 Thiamine deficiency, unspecified; E55.9 Vitamin D deficiency, unspecified; Z68.26 Body mass index [BMI] 26.0-26.9, adult; Z90.3 Acquired absence of stomach [part of]; Z98.890 Other specified postprocedural states; Z79.891 Long term (current) use of opiate analgesic | CPT/HCPCS: 99212 ==

== ENCOUNTER 2023-05-06 07:21 | Outpatient (REF) | payer OTHER, SELFPAY ==
[2023-05-06 07:44] LABS: MANUAL DIFF FLAG NO
[2023-05-06 08:48] LABS: Basophils Percent Auto 1.1 % (0-2); Eosinophils Absolute Auto 0.2 X10*3/uL (0.0-0.4); Eosinophils Percent Auto 4.8 % (0-4); Hematocrit 43.4 % (42.0-52.0); Lymphocytes Absolute Auto 1.4 X10*3/uL (1.2-4.9); Lymphocytes Percent Auto 38.2 % (20-40); Mean Corpuscular HGB Conc 32.3 g/dl (31.0-36.0); Mean Corpuscular Volume 93.1 fL (80.0-98.0); Mean Platelet Volume 10.7 fL (9.4-12.4); Monocytes Absolute Auto 0.4 X10*3/uL (0.1-1.2); Monocytes Percent Auto 10.2 % (2-11); Neutrophils Absolute Auto 1.6 x10*3/uL (2.0-8.3); Neutrophils Percent Auto 45.7 % (45-73); Platelet Count 184 X10*3/uL (160-400); Red Blood Count 4.66 X10*6/uL (4.60-5.80); Red Cell Distribution Width 13.4 % (11.0-16.0); White Blood Count 3.5 X10*3/uL (4.8-10.8)
[2023-05-06 09:07] LABS: Estimated Average Glucose 97 mg/dL
[2023-05-06 09:37] LABS: Alanine Aminotransferase 13 U/L (0-40); Albumin Level 4.2 g/dL (3.5-5.0); Alkaline Phosphatase 54 U/L (39-117); Anion Gap 10 (12-20); Aspartate Amino Transferase 16 U/L (5-37); Bilirubin Total 0.9 mg/dL (0.0-1.0); Blood Urea Nitrogen 14 mg/dL (9-16); C Reactive Protein 0.22 mg/dL (< or = 0.50); Calcium 9.4 mg/dL (8.4-10.2); Carbon Dioxide 29 mmol/L (22-29); Chloride 106 mmol/L (96-108); Cholesterol 183 mg/dL; Estimated Glomerular Filt Rate > 60; Glucose Random 84 mg/dL (60-115); HDL Cholesterol 58 mg/dL; Iron 82 mcg/dL (45-160); LDL Cholesterol Calculated 116 mg/dl; Percent Iron Saturation 33 % (15-50); Potassium 4.3 mmol/L (3.3-5.1); Sodium 141 mmol/L (135-145); Total Iron Binding Capacity 251 mcg/dL (228-428); Total Protein 7.1 g/dL (6.5-8.0); Triglycerides 45 mg/dL; Unsaturated Iron Binding 169 ug/dL
[2023-05-06 10:06] LABS: Vitamin B12 470 pg/mL (200-900)
[2023-05-06 10:09] LABS: Ferritin 630 ng/mL (20-250); TSH reflex Free T4 1.85 uIU/mL (0.32-4.0); Vitamin D 25-OH Total 36.6 ng/mL (>30)
[2023-05-06 10:22] LABS: Insulin 3 uU/mL (2-29)
[2023-05-10 13:48] LABS: Calcium (PTHI) 9.2 mg/dL (8.6-10.3); PTHI 64 pg/mL (16-77)
[2023-05-11 01:54] LABS: Zinc 63 mcg/dL (60-130)
[2023-05-11 23:04] LABS: Vitamin A 42 mcg/dL (38-98)
[2023-05-12 16:09] LABS: Vitamin B1 <6 nmol/L (8-30)
== END 2023-05-06 07:22 | disposition home or self-care (01) ==
LOC: HO.LAB 07:21
PROVIDERS: PCP Internal Medicine Geriatric Medicine; Visit Provider Physician Assistant
DX: K76.0 Fatty (change of) liver, not elsewhere classified (principal); K91.2 Postsurgical malabsorption, not elsewhere classified; Z90.3 Acquired absence of stomach [part of]
CPT/HCPCS: 36415; 80053; 80061; 82306; 82607; 82728; 82746; 83036; 83525; 83540; 83970; 84425; 84443; 84590; 84630; 85025; 86140

== ENCOUNTER 2023-05-13 09:48 | Outpatient (AMB) | payer OTHER, SELFPAY ==
[2023-05-13 09:47] VITALS: BP 114/72; PULSE 73; O2SAT 98; BMI 26.4
--- NOTE | 2023-05-13 09:47 | A.OFFVIS_ITS ---
Intake Vital Signs 05/13/23 09:47 Height 5 ft 5.5 in Weight 161 lb BMI 26.4 BP 114/72 Blood Pressure Location Rt brachial Position Sitting Pulse 73 Pulse Source Pulse Oximeter Pulse Oximetry (%) 98 Oxygen Delivery Method Room Air Intake Visit Reasons: Follow Up Venaseal Intake Note: Pt presents to the office today for a follow up venaseal. Pt states his leg is feeling beter since the procedure. Pt states he has some pain/cramping in his right leg when he is walking. Allergies morphine [MORPHINE] Allergy (Mild, Verified 05/13/23 09:47) CONFUSION, hives, rash/ itchy HPI Follow Up Venaseal HPI Details Very pleasant 47-year-old gentleman presents for follow-up regarding venous disease. He most recently underwent a right leg Cyanoacralate ablation. He reports he did relatively well with the procedure. Postprocedure ultrasound was negative for DVT. His main concern is that he has significant large varicosities of the right lower extremity. They have been a source of pain and discomfort for him. He now presents for routine evaluation. [facility] Medical History Binge eating disorder DJD (degenerative joint disease) DVT (deep venous thrombosis) H. pylori infection Hematuria of unknown cause Kidney stones Knee pain Liver fibrosis Morbid obesity Pre-op evaluation Sleep apnea with use of continuous positive airway pressure (CPAP) Steatosis, liver Varicose veins of left lower extremity with inflammation Vitamin B1 deficiency Vitamin D deficiency Surgical History Hx of appendectomy Hx of gastric bypass Hx of varicose vein stripping Family History Mother Hypertension Father No problems noted. Brother No problems noted. Sister No problems noted. Sister No problems noted. Sister No problems noted. Sister No problems noted. Sister No problems noted. Sister No problems noted. Brother No problems noted. Brother No problems noted. Daughter No problems noted. 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) Alcohol intake: never Patient Tobacco Use Status: Never used Tobacco Review of Systems Const Reports as per HPI ENT Reports no additional complaints Card Denies chest pain, Denies chest pain at rest and Denies chest pain with activity Resp Denies chest congestion and Denies cough GI Reports no additional complaints Musc Details: pain over varicosities, aching of lower extremities, swelling, cramping, heaviness and tiredness, itching Denies abnormal gait Skin/Breast Reports pruritus and Denies wounds Neuro Reports no additional complaints and Denies abnormal gait Psych Denies no additional complaints Physical Exam Vital Signs: Last Vital Signs Pulse 73 05/13/23 09:47 BP 114/72 05/13/23 09:47 Pulse Ox 98 05/13/23 09:47 Oxygen Delivery Method Room Air 05/13/23 09:47 BMI result Body Mass Index 26.4 Const General: cooperative, healthy appearing and comfortable Orientation/consciousness: oriented to person, oriented to place and oriented to time Neck Carotids: no bruits Chest Chest palpation & inspection: normal inspection of the chest and normal palpation of entire chest wall Resp Effort & Inspection: normal respiratory effort and able to speak in complete sentences Cardio Rate: regular rate Heart sounds: S1 normal heart sound present and S2 normal heart sound present Peripheral pulses: Peripheral pulses 2+ throughout GI Inspection: Yes normal to inspection Skin Other: +2 edema, large rope-like varicosities greater than 4 mm right lateral thigh and calf CEAP Classification C4 - skin color changes Ep - Etiology Primary As - superficial veins P - reflux General skin exam: dry skin Neuro General: oriented to person, oriented to place and oriented to time Extrem Right lower extremity: full ROM, normal capillary refill and edema Left lower extremity: full ROM, normal capillary refill and edema Psych Mental Status: mental status grossly normal Assessment & Plan Assessment & Plan (1) Varicose veins of right lower extremity with inflammation: Comment: 04/09/2023 - right great saphenous vein Cyanoacralate ablation Code(s): I83.11 - Varicose veins of right lower extremity with inflammation Plan: This patient has varicose veins with inflammation. They continue to be a source of discomfort for the patient. The patient has tried conservative treatment with compression, leg elevation and exercise program for over 3 months time. They have been compliant with all treatment. This has provided minimal relief for the patient. I do not anticipate this course of treatment will alter the underlying etiology. The patient has been scheduled for lower extremity venous treatment inclusive of --- right leg microphlebectomy to be performed in the operating room. Risks, benefits, and complications of this procedure has been discussed in detail with the patient including but not limited to bleeding, infection, and the development of a DVT. The patient has demonstrated a clear understanding and has consented. We will schedule the patient as soon as possible. Thank you for allowing us to participate in this patient's care. If there are any questions or concerns please do not hesitate to contact us. Coding Level of Care Code Est Pt Level 4 (62220) Diagnoses Varicose veins of right lower extremity with inflammation I83.11
== END 2023-05-13 10:22 | disposition home or self-care (01) ==
PROVIDERS: Visit Provider Surgery Vascular Surgery
DX: I83.11 Varicose veins of right lower extremity with inflammation (principal)
CPT/HCPCS: 99214

== ENCOUNTER → 2023-05-13 09:48 | Outpatient (BNVA) | payer OTHER, SELFPAY | PROVIDERS: Visit Provider Surgery Vascular Surgery | DX: I83.11 Varicose veins of right lower extremity with inflammation (principal) | CPT/HCPCS: 99212 ==

== ENCOUNTER 2023-06-14 09:54 | Day surgery (SDC) | payer OTHER, SELFPAY ==
[2023-06-10 14:22] VITALS: BMI 26.4
--- NOTE | 2023-06-11 10:36 | P.CONAN_ITS ---
Documented by User: Renetta Zayas NP 06/11/23 10:38 HPI - Anesthesia Eval Consult details Narrative: 47yo M for Right Micro Phlebectomy s/p panniculectomy 10/2022 with GA-ETT 7.5 PMFSH Active Problems Active Problems: All Active Problems (Updated 05/13/23 @ 11:37 by Stone Vasquez MD) S/P panniculectomy (Acute) Constipation (Acute) Postgastrectomy malabsorption (Acute) Excess skin (Acute) Varicose veins of right lower extremity with inflammation (Acute) Overweight (Acute) BMI 37.0-37.9, adult (Acute) Obesity (Acute) Intra-abdominal adhesions (Acute) Status post sleeve gastrectomy (Acute) Hypertension (Acute) Varicose veins of left lower extremity with inflammation (Acute) Hematuria of unknown cause (Acute) Liver fibrosis (Acute) Steatosis, liver (Acute) Sleep apnea with use of continuous positive airway pressure (CPAP) (Acute) Morbid obesity (Acute) Past Medical History Medical History Hematuria of unknown cause Knee pain Liver fibrosis Steatosis, liver Pre-op evaluation H. pylori infection Vitamin D deficiency Vitamin B1 deficiency Binge eating disorder Sleep apnea with use of continuous positive airway pressure (CPAP) DJD (degenerative joint disease) Kidney stones Morbid obesity Varicose veins of left lower extremity with inflammation DVT (deep venous thrombosis) Family History Family History Mother Hypertension Father No problems noted. Brother No problems noted. Sister No problems noted. Sister No problems noted. Sister No problems noted. Sister No problems noted. Sister No problems noted. Sister No problems noted. Brother No problems noted. Brother No problems noted. Daughter No problems noted. 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) Alcohol intake: never Patient Tobacco Use Status: Never used Tobacco Meds Allergies Allergy/AdvReac Type Severity Reaction Status Date / Time morphine [MORPHINE] Allergy Mild CONFUSION, Verified 06/29/23 10:07 hives, rash/ itchy Home Medications Medication Instructions Recorded Confirmed Last Taken Type oxycodone 5 mg tablet 5 mg PO BID PRN Severe Pain (Scale 07/01/22 04/30/23 Unknown History Score 7-10) ilpzipvt-[id number]-aepg 45 mg-folic cap PO 04/30/23 04/30/23 Unknown History acid 800 mcg-vit K 120 mcg capsule (Bariatric Multivitamins) Exam Exam Date and Time: June 11, 2023 1036 Height,Weight and Vital Signs: Height 5 ft 5.5 in Weight 73.028 kg Pertinent Lab Results Pertinent Lab Results: Laboratory Tests 05/06/23 07:34 WBC 3.5 L Hgb 14.0 Hct 43.4 Plt Count 184 Sodium 141 Potassium 4.3 Chloride 106 Carbon Dioxide 29 BUN 14 Creatinine 0.80 Assessment and Plan Assessment Anesthesia Assessment: Chart Reviewed Final Anesthetic Review Family History of Problems with Anesthesia: No History of Problems with Anesthesia: No Documented by User: Hadley Castelan MD 08/12/23 19:24 [facility] Past Medical History Medical History Hematuria of unknown cause Knee pain Liver fibrosis Steatosis, liver Pre-op evaluation H. pylori infection Vitamin D deficiency Vitamin B1 deficiency Binge eating disorder Sleep apnea with use of continuous positive airway pressure (CPAP) DJD (degenerative joint disease) Kidney stones Morbid obesity Varicose veins of left lower extremity with inflammation DVT (deep venous thrombosis) Functional capacity: independent ambulation Family History Family History Mother Hypertension Father No problems noted. Brother No problems noted. Sister No problems noted. Sister No problems noted. Sister No problems noted. Sister No problems noted. Sister No problems noted. Sister No problems noted. Brother No problems noted. Brother No problems noted. Daughter No problems noted. 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) Alcohol intake: never Patient Tobacco Use Status: Never used Tobacco Meds Allergies Allergy/AdvReac Type Severity Reaction Status Date / Time morphine [MORPHINE] Allergy Mild CONFUSION, Verified 06/29/23 10:07 hives, rash/ itchy Home Medications Medication Instructions Recorded Confirmed Last Taken Type oxycodone 5 mg tablet 5 mg PO BID PRN Severe Pain (Scale 07/01/22 04/30/23 Unknown History Score 7-10) xyaeogaz-sbiujdno-ipzs 45 mg-folic cap PO 04/30/23 04/30/23 Unknown History acid 800 mcg-vit K 120 mcg capsule (Bariatric Multivitamins) Exam Airway Mallampati Class: III Loose/Missing/Broken Teeth: Yes Assessment and Plan Assessment Anesthesia Assessment: Anesthesia Plan Discussed Final Anesthetic Review NPO: Yes ASA Class: III Final Preanesthetic Review: Meds/Allgs Chart Reviewed, Consent Obtained/Reviewed and Anes Risks/Benef Reviewed Patient Risk: Intermediate Procedure Risk: Intermediate Anesthetic Plan Anesthetic Plan: GA and Agree w/ Assess. and Plan Disposition: Standard PACU
[2023-06-14] VITALS (13 sets, daily range): BP systolic 119–155; BP diastolic 68–89; PULSE 56–68; RESP 14–20; TEMP 36.1–36.2; O2SAT 97–100
[2023-06-14] MEDS: Lactated Ringers 1,000 ML 100 ML IVCONT (11:14)
--- NOTE | 2023-06-14 12:32 | W.PM.OPN ---
Operative Note Operative Note Date of Service: 06/14/23 Narrative: Operative note by [facility] Preoperative diagnosis: Right leg varicose veins with inflammation Postoperative diagnosis: Same Procedure:1. Right leg microphlebectomy (27) 2. Ligation of right leg venous cluster Surgeon:Stone Vasquze M.D. Watcher Look[employer] Tower: [place] Anesthesia: General Specimens:1 Drains:none Estimated blood loss: 100 mL Indications: Very pleasant 47-year-old gentleman with a prior history right leg varicosities in prior ablation presents for microphlebectomy. The patient has signed the informed consent after reviewing risks, complications, benefits, and alternatives previously discussed with the patient. The patient was given the opportunity to ask any additional questions or voice any concerns. All questions were answered to the patient's satisfaction. Procedure in detail: Varicose veins were marked in the standing position on the right leg and the patient was then placed in the supine position. The right lower extremity was prepared and draped to allow knee flexion in the sterile field. The patient had large superficial varicose veins with significant symptoms of pain. It was therefore determined to perform microphlebectomies of the clusters of varicose veins. The patient had bulging varicose veins which were previously marked in the standing position. A small stab incision was made longitudinally directly overlying the varicose vein in the calf and the varicose vein was grasped with a hemostat aided by a vein hook. It was then dissected as far proximally and distally as possible and avulsed. A total of 27 stab incisions were made and the procedure of stab phlebectomies was repeated 27 times. In addition there was a cluster in the right medial thigh. We got to the base and ligated this with a 3-0 Polysorb suture. Residual varicosities were removed. Hemostasis was checked and stab incision sites were closed with steri-strips and sterile dressing was given with gauze and krilex wrap followed by an fabrice bandage. There were no complications and blood loss was minimal. Post-Op instructions were given and a follow-up appointment was recommended. This note is constructed using voice recognition software. While every effort has been made to ensure accuracy, yarn examiner errors may have been included. Thank you for allowing me to participate in the care of your patient. Yours sincerely, Stone Vasquez MD, FACS, R.P.V.I.
[2023-06-14] MEDS: fentaNYL citrate/PF 100 MCG/2 ML VIAL 25 MCG IVPUSH ×2 (12:55→13:02)
== END 2023-06-14 14:51 | disposition home or self-care (01) ==
PROVIDERS: PCP Internal Medicine Geriatric Medicine; Visit Provider Surgery Vascular Surgery
PROC: (CPT 37766; principal; 2023-06-14 11:40)
DX: I83.11 Varicose veins of right lower extremity with inflammation (principal); M19.90 Unspecified osteoarthritis, unspecified site; E51.9 Thiamine deficiency, unspecified; E55.9 Vitamin D deficiency, unspecified; K76.0 Fatty (change of) liver, not elsewhere classified; G47.33 Obstructive sleep apnea (adult) (pediatric); Z99.89 Dependence on other enabling machines and devices; F50.81 Binge eating disorder; Z68.26 Body mass index [BMI] 26.0-26.9, adult; Z88.5 Allergy status to narcotic agent; Z98.84 Bariatric surgery status; Z98.890 Other specified postprocedural states
CPT/HCPCS: 37766; 37785; 88304; J0131; J0690; J2250; J2405; J2795; J3010

== ENCOUNTER → 2023-06-14 09:54 | Outpatient (BNV) | payer OTHER, SELFPAY | PROVIDERS: PCP Internal Medicine Geriatric Medicine; Visit Provider Surgery Vascular Surgery | DX: I83.11 Varicose veins of right lower extremity with inflammation (principal) | CPT/HCPCS: 37766; 37785 ==

== ENCOUNTER 2023-06-29 09:51 | Outpatient (AMB) | payer OTHER, SELFPAY ==
--- NOTE | 2023-06-29 09:59 | MHC.OFFVIS ---
Intake Intake Visit Reasons: 2 week follow up right leg micro Intake Note: pt here for a 2 week right leg micro on 06/14/23 pts/p venaseal right leg on 04/09/23 Pt says he is having pain in the incision thats on the anaya area it hurts and its red and irratated..He says Its been about 3 days that he has notice the pain states the rest of the incisions are feeling ok and are not causing him any issues. Allergies morphine [MORPHINE] Allergy (Mild, Verified 06/29/23 10:07) CONFUSION, hives, rash/ itchy HPI 2 week follow up right leg micro HPI Details Pleasant 47-year-old gentleman presents for routine postop follow-up status post right leg microphlebectomy. Has had no interval issues. He reports that in general leg feels much better. He has 1A stab incision in the right pretibial surface which has been quite painful form. He now presents for routine follow-up. [facility] Medical History Hematuria of unknown cause Knee pain Liver fibrosis Steatosis, liver Pre-op evaluation H. pylori infection Vitamin D deficiency Vitamin B1 deficiency Binge eating disorder Sleep apnea with use of continuous positive airway pressure (CPAP) DJD (degenerative joint disease) Kidney stones Morbid obesity Varicose veins of left lower extremity with inflammation DVT (deep venous thrombosis) Surgical History History of surgery History of abdominal surgery Hx of gastric bypass Hx of appendectomy Hx of varicose vein stripping Family History Mother Hypertension Father No problems noted. Brother No problems noted. Sister No problems noted. Sister No problems noted. Sister No problems noted. Sister No problems noted. Sister No problems noted. Sister No problems noted. Brother No problems noted. Brother No problems noted. Daughter No problems noted. Social History Are you a primary home child care provider to a significant other at home: No Do you presently have visiting nurse or other home services: Yes ([employer]) Alcohol intake: never Patient Tobacco Use Status: Never used Tobacco Review of Systems Const All systems reviewed & are unremarkable except as noted in HPI and below Reports no additional complaints ENT Reports Normal hearing present Card Denies chest pain, Denies chest pain at rest, Denies chest pain with activity and Denies pedal edema Resp Denies cough GI Denies abdominal pain Musc Denies abnormal gait, Denies muscle cramps and Denies radiating pain into limb Skin/Breast Denies skin ulcer and Denies wounds Neuro Reports Normal hearing present and Denies abnormal gait Psych Reports no additional complaints Physical Exam Const General: cooperative, healthy appearing and comfortable Orientation/consciousness: oriented to person, oriented to place and oriented to time HEENT Head: Yes normal to inspection Neck Neck: Yes normal visual inspection Carotids: no bruits Chest Chest palpation & inspection: normal inspection of the chest Resp Effort & Inspection: normal respiratory effort and able to speak in complete sentences Auscultation: clear to auscultation bilaterally, no crackles, no rales, no rhonchi and no wheezes Cardio Rate: regular rate Rhythm: regular rhythm Heart sounds: S1 normal heart sound present and S2 normal heart sound present Bruits: no carotid bruits Peripheral pulses: Peripheral pulses 2+ throughout GI Inspection: Yes normal to inspection Skin Other: Right pretibial incision with mild erythema. Wounds: no wounds Hair: normal Neuro General: oriented to person, oriented to place and oriented to time Cranial nerves: Yes CN's II-XII intact bilaterally and Yes Normal hearing present Cognition (Neuro): normal cognition Motor exam (neuro): 5/5 motor strength present throughout Extrem Other: venous exam: No significant superficial varicosities or spider telangiectasias, minimal edema General: No clubbing, No cyanosis and No edema Psych Appearance: grossly normal Mental Status: mental status grossly normal Speech and movement: Normal speech and movement present Assessment & Plan Assessment & Plan (1) Varicose veins of right lower extremity with inflammation: Comment: 04/09/2023 - right great saphenous vein Cyanoacralate ablation 06/14/2023 - operative right lower extremity microphlebectomy Code(s): I83.11 - Varicose veins of right lower extremity with inflammation Plan: In short patient has done well with operative procedure. There is some pretibial cellulitis. Will plan for Keflex to ensure that it improves. We also did discuss conservative measures including warm compresses and use of nonsteroidal should it become irritated. He will follow up with us in approximately 2 weeks time. Medications: New cephalexin 500 mg PO BID 10 caps 0RF I83.11 - Varicose veins of right lower extremity with inflammation Coding Level of Care Code Est Pt Level 4 (42256) Diagnoses Varicose veins of right lower extremity with inflammation I83.11
== END 2023-06-29 10:15 | disposition home or self-care (01) ==
PROVIDERS: Visit Provider Surgery Vascular Surgery
DX: L03.116 Cellulitis of left lower limb (principal); I83.11 Varicose veins of right lower extremity with inflammation
CPT/HCPCS: 99214

== ENCOUNTER → 2023-06-29 09:51 | Outpatient (BNVA) | payer OTHER, SELFPAY | PROVIDERS: Visit Provider Surgery Vascular Surgery | DX: I83.11 Varicose veins of right lower extremity with inflammation (principal); Z98.890 Other specified postprocedural states | CPT/HCPCS: 99212 ==

== ENCOUNTER 2023-07-13 09:43 | Outpatient (AMB) | payer OTHER, SELFPAY ==
--- NOTE | 2023-07-13 09:45 | MHC.OFFVIS ---
Intake Vital Signs 07/13/23 09:49 Height 5 ft 6 in Weight 160 lb BMI 25.8 Intake Visit Reasons: 2 week follow up leg check Intake Note: Pt here for 2 week leg check s/p micro 10/05/22 and left SSV RFA 05/22/22 Pt states that he woke up today and he was bleeding from the incision sites. and he is still having some pain Allergies morphine [MORPHINE] Allergy (Mild, Verified 06/29/23 10:07) CONFUSION, hives, rash/ itchy HPI 2 week follow up leg check HPI Details Very pleasant 47-year-old gentleman presents for follow-up regarding right lower extremity microphlebectomy. This was done on 06/14/2023. After that he had 7 if he can erythema and inflammation and had undergone a course of antibiotics of Keflex. He appears to be doing significantly better. He has 2 small pretibial incision sites that are not healing well. Other than that the rest of his leg feels well. [facility]END[facility] SALE TO [facility] Medical History Hematuria of unknown cause Knee pain Liver fibrosis Steatosis, liver Pre-op evaluation H. pylori infection Vitamin D deficiency Vitamin B1 deficiency Binge eating disorder Sleep apnea with use of continuous positive airway pressure (CPAP) DJD (degenerative joint disease) Kidney stones Morbid obesity Varicose veins of left lower extremity with inflammation DVT (deep venous thrombosis) Surgical History History of surgery History of abdominal surgery Hx of gastric bypass Hx of appendectomy Hx of varicose vein stripping Family History Mother Hypertension Father No problems noted. Brother No problems noted. Sister No problems noted. Sister No problems noted. Sister No problems noted. Sister No problems noted. Sister No problems noted. Sister No problems noted. Brother No problems noted. Brother No problems noted. Daughter No problems noted. 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) Alcohol intake: never Patient Tobacco Use Status: Never used Tobacco Review of Systems Const Reports as per HPI ENT Reports no additional complaints Card Denies chest pain, Denies chest pain at rest and Denies chest pain with activity Resp Denies chest congestion and Denies cough GI Reports no additional complaints Musc Details: pain over varicosities, aching of lower extremities, swelling, cramping, heaviness and tiredness, itching Denies abnormal gait Skin/Breast Reports pruritus and Denies wounds Neuro Reports no additional complaints and Denies abnormal gait Psych Denies no additional complaints Physical Exam Vital Signs: BMI result Body Mass Index 25.8 Const General: cooperative, healthy appearing and comfortable Orientation/consciousness: oriented to person, oriented to place and oriented to time Neck Carotids: no bruits Chest Chest palpation & inspection: normal inspection of the chest and normal palpation of entire chest wall Resp Effort & Inspection: normal respiratory effort and able to speak in complete sentences Cardio Rate: regular rate Heart sounds: S1 normal heart sound present and S2 normal heart sound present Peripheral pulses: Peripheral pulses 2+ throughout GI Inspection: Yes normal to inspection Skin Other: +2 edema, large rope-like varicosities greater than 4 mm CEAP Classification C4 - skin color changes Ep - Etiology Primary As - superficial veins P - reflux Two small right pretibial incision sites. They were closed with Steri-Strips. General skin exam: dry skin Neuro General: oriented to person, oriented to place and oriented to time Extrem Right lower extremity: full ROM, normal capillary refill and edema Left lower extremity: full ROM, normal capillary refill and edema Psych Mental Status: mental status grossly normal Assessment & Plan Assessment & Plan (1) Varicose veins of right lower extremity with inflammation: Comment: 04/09/2023 - right great saphenous vein Cyanoacralate ablation 06/14/2023 - operative right lower extremity microphlebectomy Code(s): I83.11 - Varicose veins of right lower extremity with inflammation Plan: In short patient appears to be doing relatively well with right leg microphlebectomy. Overall his varicosities have significantly decreased. The 2 small sites were closed with Steri-Strips and I do suspect they will heal with no issues. I did schedule a 3 month follow-up to see what residual varicosities do remain as there was quite an extensive amount of venous clusters that were identified. We did discuss routine conservative measures including compression elevation and exercise. Once again he will follow up with us in approximately 3 months time. Thank you for allowing us to assist in his care. (2) Varicose veins of left lower extremity with inflammation: Comment: 02/28/2021 - left great saphenous Cyanoacralate ablation 05/05/2021 - left leg micro 03/22/2023 - left great saphenous radiofrequency ablation Code(s): I83.12 - Varicose veins of left lower extremity with inflammation Coding Level of Care Code Est Pt Level 4 (27651) Diagnoses Varicose veins of right lower extremity with inflammation I83.11 Varicose veins of left lower extremity with inflammation I83.12
[2023-07-13 09:49] VITALS: BMI 25.8
== END 2023-07-13 10:03 | disposition home or self-care (01) ==
PROVIDERS: Visit Provider Surgery Vascular Surgery
DX: I83.11 Varicose veins of right lower extremity with inflammation (principal); I83.12 Varicose veins of left lower extremity with inflammation
CPT/HCPCS: 99024

== ENCOUNTER → 2023-07-13 09:43 | Outpatient (BNVA) | payer OTHER, SELFPAY | PROVIDERS: Visit Provider Surgery Vascular Surgery | DX: I83.11 Varicose veins of right lower extremity with inflammation (principal); I83.12 Varicose veins of left lower extremity with inflammation | CPT/HCPCS: 99212 ==

== ENCOUNTER 2023-09-09 09:41 | Outpatient (AMB) | payer OTHER, SELFPAY ==
--- NOTE | 2023-09-09 09:43 | A.OFFVIS_ITS ---
Intake Intake Visit Reasons: leg check after right leg micro Intake Note: Pt here for leg check after right leg micro on 06/14/23 also s/p venaseal right leg on 04/09/23. Pt states that he is still having pain on the upper tigh of his right leg and when he showers he has puss and fluid coming out of the incision he has there Allergies morphine [MORPHINE] Allergy (Mild, Verified 09/09/23 09:46) CONFUSION, hives, rash/ itchy HPI leg check after right leg micro HPI Details Very pleasant 48-year-old gentleman presents for follow-up regarding right leg microphlebectomy. He reports that he is doing fairly well. Has 1 stab site in the anterior medial aspect of the right thigh that has been phlebitic and nonhealing. It appears to be improving but still an issue for him. He now presents for follow-up. [facility] Medical History Hematuria of unknown cause Knee pain Liver fibrosis Steatosis, liver Pre-op evaluation H. pylori infection Vitamin D deficiency Vitamin B1 deficiency Binge eating disorder Sleep apnea with use of continuous positive airway pressure (CPAP) DJD (degenerative joint disease) Kidney stones Morbid obesity Varicose veins of left lower extremity with inflammation DVT (deep venous thrombosis) Surgical History History of surgery History of abdominal surgery Hx of gastric bypass Hx of appendectomy Hx of varicose vein stripping Family History Mother Hypertension Father No problems noted. Brother No problems noted. Sister No problems noted. Sister No problems noted. Sister No problems noted. Sister No problems noted. Sister No problems noted. Sister No problems noted. Brother No problems noted. Brother No problems noted. Daughter No problems noted. 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) Alcohol intake: never Patient Tobacco Use Status: Never used Tobacco Review of Systems Const All systems reviewed & are unremarkable except as noted in HPI and below Reports no additional complaints ENT Reports Normal hearing present Card Denies chest pain, Denies chest pain at rest, Denies chest pain with activity and Denies pedal edema Resp Denies cough GI Denies abdominal pain Musc Denies abnormal gait, Denies muscle cramps and Denies radiating pain into limb Skin/Breast Denies skin ulcer and Denies wounds Neuro Reports Normal hearing present and Denies abnormal gait Psych Reports no additional complaints Physical Exam Const General: cooperative, healthy appearing and comfortable Orientation/consciousness: oriented to person, oriented to place and oriented to time HEENT Head: Yes normal to inspection Neck Neck: Yes normal visual inspection Carotids: no bruits Chest Chest palpation & inspection: normal inspection of the chest Resp Effort & Inspection: normal respiratory effort and able to speak in complete sentences Auscultation: clear to auscultation bilaterally, no crackles, no rales, no rhonchi and no wheezes Cardio Rate: regular rate Rhythm: regular rhythm Heart sounds: S1 normal heart sound present and S2 normal heart sound present Bruits: no carotid bruits Peripheral pulses: Peripheral pulses 2+ throughout GI Inspection: Yes normal to inspection Skin Other: Right anterior medial thigh phlebitic hardened venous area. Wounds: no wounds Hair: normal Neuro General: oriented to person, oriented to place and oriented to time Cranial nerves: Yes CN's II-XII intact bilaterally and Yes Normal hearing present Cognition (Neuro): normal cognition Motor exam (neuro): 5/5 motor strength present throughout Extrem Other: venous exam: No significant superficial varicosities or spider telangiectasias, minimal edema General: No clubbing, No cyanosis and No edema Psych Appearance: grossly normal Mental Status: mental status grossly normal Speech and movement: Normal speech and movement present Assessment & Plan Assessment & Plan (1) Varicose veins of right lower extremity with inflammation: Comment: 04/09/2023 - right great saphenous vein Cyanoacralate ablation 06/14/2023 - operative right lower extremity microphlebectomy Code(s): I83.11 - Varicose veins of right lower extremity with inflammation Plan: Will reassess that right anterior thigh area in approximately 3 weeks time. Should it remain nonhealing may need to excise. (2) Varicose veins of left lower extremity with inflammation: Comment: 02/28/2021 - left great saphenous Cyanoacralate ablation 05/05/2021 - left leg micro 03/22/2023 - left great saphenous radiofrequency ablation Code(s): I83.12 - Varicose veins of left lower extremity with inflammation Plan: Doing well continue compression elevation and exercise. He will follow up with us for his right leg. Thank you for allowing us to participate in his care. If there are questions or concerns please do not hesitate to contact us. The patient had an opportunity to ask questions regarding the treatment plan. All questions were answered. Imaging studies, laboratory studies and physical exam results were discussed and reviewed in detail. No major barriers to understanding were identified. The patient expressed understanding and agreement with the above treatment plan. The patient is aware they should contact our office by phone for worsening of the current condition or the appearance of new symptoms. Thank you for allowing me to participate in the vascular care of this patient. If you have any questions or concerns regarding the treatment for the above condition please do not hesitate to contact me. The office telephone contact is [phone]. This note is constructed using voice recognition software. While every effort has been made to ensure accuracy, associate professor of engineering errors may have been included. Thank you for allowing me to participate in the care of your patient. Yours sincerely, Stone Vasquez MD, FACS, R.P.V.I. Coding Level of Care Code Est Pt Level 3 (63073) Diagnoses Varicose veins of right lower extremity with inflammation I83.11 Varicose veins of left lower extremity with inflammation I83.12
== END 2023-09-09 10:02 | disposition home or self-care (01) ==
PROVIDERS: Visit Provider Surgery Vascular Surgery
DX: I83.11 Varicose veins of right lower extremity with inflammation (principal); I83.12 Varicose veins of left lower extremity with inflammation
CPT/HCPCS: 99024

== ENCOUNTER → 2023-09-09 09:41 | Outpatient (BNVA) | payer OTHER, SELFPAY | PROVIDERS: Visit Provider Surgery Vascular Surgery | DX: I83.11 Varicose veins of right lower extremity with inflammation (principal); I83.12 Varicose veins of left lower extremity with inflammation | CPT/HCPCS: 99212 ==

== ENCOUNTER 2023-09-22 11:45 | Emergency (ER) | payer OTHER, SELFPAY ==
--- NOTE | 2023-09-22 11:52 | ED.URI ---
HPI - URI/Sore Throat General Chief Complaint: Upper Respiratory Symptoms Stated Complaint: Headache Pain Time Seen by Provider: 09/22/23 13:21 Source: patient Mode of arrival: ambulatory Limitations: no limitations History of Present Illness HPI Narrative: ?This is a 48-male-old female history of obesity presenting to the emergency department with complaints of fatigue, malaise, sore throat, myalgias, diffuse headache without visual disturbances, trauma, dizziness, dry cough x4 days progressively worsening.? Significant other sick with similar symptoms.? Denies chest pain, shortness of breath, vomiting, diarrhea, abdominal pain, weakness, dizziness at this time. Related Data Home Medications Medication Instructions Recorded Confirmed oxycodone 5 mg tablet 5 mg PO BID PRN Severe Pain (Scale 07/01/22 04/30/23 Score 7-10) edlrpqwh-gkjucqwy-zhoq 45 mg-folic cap PO 04/30/23 04/30/23 acid 800 mcg-vit K 120 mcg capsule (Bariatric Multivitamins) Previous Rx's Medication Instructions Recorded thiamine HCl (vitamin B1) 50 mg 50 mg PO DAILY #30 tabs 05/13/23 tablet cephalexin 500 mg capsule 500 mg PO BID #10 caps 06/29/23 Allergies Allergy/AdvReac Type Severity Reaction Status Date / Time morphine [MORPHINE] Allergy Mild CONFUSION, Verified 09/22/23 11:55 hives, rash/ itchy Review of Systems Review of Systems: Yes all other systems are reviewed and are negative PMFSH Past Medical History Attestation statement: The following information was validated with the patient. Source: old records reviewed and nursing notes reviewed Onset Date is defined in the Problem List Problems that require an onset date and time if occurred within 24 hrs of arrival to the ED Aortic Dissection and Rupture; Neurologic impairment; Cardiopulmonary Arrest; Endotracheal Intubation; Insertion or Replacement of Mechanical Circulatory Assist Device Medical History Hematuria of unknown cause Knee pain Liver fibrosis Steatosis, liver Pre-op evaluation H. pylori infection Vitamin D deficiency Vitamin B1 deficiency Binge eating disorder Sleep apnea with use of continuous positive airway pressure (CPAP) DJD (degenerative joint disease) Kidney stones Morbid obesity Varicose veins of left lower extremity with inflammation DVT (deep venous thrombosis) Surgical History History of surgery History of abdominal surgery Hx of gastric bypass Hx of appendectomy Hx of varicose vein stripping Family History Family History Mother Hypertension Father No problems noted. Brother No problems noted. Sister No problems noted. Sister No problems noted. Sister No problems noted. Sister No problems noted. Sister No problems noted. Sister No problems noted. Brother No problems noted. Brother No problems noted. Daughter No problems noted. 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 Oriented X3.? No acute distress.? Head: Normocephalic, atraumatic, no step-offs or deformities Eyes: Pupils equal, round and reactive to light.? ENT: Pharynx normal.? Uvula midline. No exudate or abscess. Speaking in full sentences controlling secretions well Neck: Normal inspection.? Neck supple.? CVS: Normal heart rate and rhythm.? Pulses normal.? Respiratory: No respiratory distress.? Breath sounds normal.? Abdomen: Soft and nontender.? Skin: Skin warm and dry.? Normal skin color.? Normal skin turgor.? Extremities: No lower extremity edema.? No calf ttp. 5/5 strength to bilateral upper and lower extremities Neuro: Oriented X 3.? No motor deficit.? No sensory deficit. CN 2-12 intact Course Course Course Narrative: RME: 48 yo M w/PMHx HTN, s/p gastric sleeve presenting to the ED c/o ARCINIEGA & sore throat x2 days. Denies cough, fever, sick contacts mild posterior oropharynx erythema. no swelling or exudates Viral testing, rapid strep ordered Full HPI, ROS and PE to be performed by primary ED provider. Reevaluation(s) Reevaluation #1: COVID positive. Went over CDC guidelines. Educated patient on diagnosis and treatment plan, answered all question, patient verbalizes understanding. At this time patient will be discharged home, advised to return with new or worsening symptoms. Educated on worrisome signs and symptoms and when to return. At this time I feel comfortable discharge home. Time: 14:05 Medical Decision Making Medical Decision Making [facility] Narrative: 1404 48-year-old male presents with viral symptoms for the past 2 days. ??Physical examination benign ?This is likely viral flu versus COVID versus RSV versus bronchitis.? Unlikely pulmonary embolism, pneumonia, ACS, retropharyngeal abscess, peritonsillar abscess, epiglottitis, intracranial hemorrhage, stroke, posterior stroke, meningitis or encephalitis.? No signs of acute respiratory distress ?Plan viral testing Differential Diagnosis Differential Diagnoses: The differential diagnosis associated with the presentation includes ?This is likely viral flu versus COVID versus RSV versus bronchitis.? Unlikely pulmonary embolism, pneumonia, ACS, retropharyngeal abscess, peritonsillar abscess, epiglottitis, intracranial hemorrhage, stroke, posterior stroke, meningitis or encephalitis.? No signs of acute respiratory distress Admission/Observation Consideration of admission/observation: Escalation of care including admission/observation [facility] Lab Attestation statement: I reviewed the patient's lab results. Labs: Lab Results 09/22/23 Range/Units 12:53 Influenza Type A (PCR) NEGATIVE (Negative) Influenza Type B (PCR) NEGATIVE (Negative) RSV RNA Qual (PCR) NEGATIVE (Negative) SARS-CoV-2 RNA (RT-PCR) POSITIVE A (Negative) S. pyogenes GrpA KACIE Negative (Negative) Critical Care Time Critical Care Time Critical Care Time: No Discharge Plan Discharge Clinical Impression: COVID-19 Patient Disposition: Home, Self-Care Instructions: COVID-19 (Coronavirus Disease 2019) (ED) Additional Instructions: Take your medications as prescribed. If you were prescribed antibiotics today, it is important that you take your medication to their entirety, do not skip any doses, do not finish them early. Today you tested positive for COVID-19. Take Ibuprofen or Tylenol as needed for fevers or body aches. Quarantine for 5 days and ensure you wear a mask. After 5 days you should wear a mask for 5 days after that. Practice social distancing and good hand hygiene. Drink plenty of fluids. Follow-up with your primary care provider this week. Return to the emergency department with new or worsening symptoms. In case of emergency call 911 You can purchase a pulse oximeter from your local pharmacy or grocery store, and monitor your oxygen saturation if it goes below 94% you should return to the emergency department for further evaluation. Prescriptions: No Action thiamine HCl (vitamin B1) 50 mg tablet 50 mg PO DAILY Qty: 30 11RF oxycodone 5 mg tablet 5 mg PO BID PRN (Reason: Severe Pain (Scale Score 7-10)) cephalexin 500 mg capsule 500 mg PO BID Qty: 10 0RF Bariatric Multivitamins 45 mg iron- 800 mcg-120 mcg capsule PO Referrals: Name,MD Logan [Primary Care Provider] - 2 days Stand Alone Forms: Work/School Release
[2023-09-22 11:53] VITALS: BP 146/95; PULSE 73; RESP 20; TEMP 36.6; O2SAT 98; BMI 28.2
== END 2023-09-22 14:26 | disposition home or self-care (01) ==
PROVIDERS: Emergency Provider Emergency Medicine; PCP Internal Medicine Geriatric Medicine
DX: U07.1 COVID-19 (principal); R51.9 Headache, unspecified; J02.9 Acute pharyngitis, unspecified; R42 Dizziness and giddiness; R05.9 Cough, unspecified
CPT/HCPCS: 0241U; 87651; 99282; 99283

== ENCOUNTER 2023-09-30 09:43 | Outpatient (AMB) | payer OTHER, SELFPAY ==
[2023-09-30 09:50] VITALS: BMI 28.1
--- NOTE | 2023-09-30 09:50 | MHC.OFFVIS ---
Intake Vital Signs 09/30/23 09:50 Height 5 ft 6 in Weight 174 lb BMI 28.1 Intake Visit Reasons: 3 week leg check Intake Note: 3 week leg check s/p Right LE micro 06/14/23 and Hx of Right GSV Venaseal 04/09/23. Pt states he is doing better but still has incisional drainage. Accompanied by: Self / Same As Patient Allergies morphine [MORPHINE] Allergy (Mild, Verified 09/30/23 09:57) CONFUSION, hives, rash/ itchy HPI 3 week leg check HPI Details Very pleasant 48-year-old gentleman presents for follow-up regarding his right lower extremity. He would undergone right lower extremity microphlebectomy. He has this 1 varicosity in the right anterior aspect of the thigh that has been a source of pain and discomfort. It does demonstrate a superficial ellipse which appears to be very fragile. He now presents for follow-up [facility] Medical History Hematuria of unknown cause Knee pain Liver fibrosis Steatosis, liver Pre-op evaluation H. pylori infection Vitamin D deficiency Vitamin B1 deficiency Binge eating disorder Sleep apnea with use of continuous positive airway pressure (CPAP) DJD (degenerative joint disease) Kidney stones Morbid obesity Varicose veins of left lower extremity with inflammation DVT (deep venous thrombosis) Surgical History History of surgery History of abdominal surgery Hx of gastric bypass Hx of appendectomy Hx of varicose vein stripping Family History Mother Hypertension Father No problems noted. Brother No problems noted. Sister No problems noted. Sister No problems noted. Sister No problems noted. Sister No problems noted. Sister No problems noted. Sister No problems noted. Brother No problems noted. Brother No problems noted. Daughter No problems noted. 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) Alcohol intake: never Patient Tobacco Use Status: Never used Tobacco Review of Systems Const Reports as per HPI ENT Reports no additional complaints Card Denies chest pain, Denies chest pain at rest and Denies chest pain with activity Resp Denies chest congestion and Denies cough GI Reports no additional complaints Musc Details: pain over varicosities, aching of lower extremities, swelling, cramping, heaviness and tiredness, itching Denies abnormal gait Skin/Breast Reports pruritus and Denies wounds Neuro Reports no additional complaints and Denies abnormal gait Psych Denies no additional complaints Physical Exam Vital Signs: BMI result Body Mass Index 28.1 Const General: cooperative, healthy appearing and comfortable Orientation/consciousness: oriented to person, oriented to place and oriented to time Neck Carotids: no bruits Chest Chest palpation & inspection: normal inspection of the chest and normal palpation of entire chest wall Resp Effort & Inspection: normal respiratory effort and able to speak in complete sentences Cardio Rate: regular rate Heart sounds: S1 normal heart sound present and S2 normal heart sound present Peripheral pulses: Peripheral pulses 2+ throughout GI Inspection: Yes normal to inspection Skin Other: +2 edema, large rope-like varicosities greater than 4 mm right thigh CEAP Classification C4 - skin color changes Ep - Etiology Primary As - superficial veins P - reflux General skin exam: dry skin Neuro General: oriented to person, oriented to place and oriented to time Extrem Right lower extremity: full ROM, normal capillary refill and edema Left lower extremity: full ROM, normal capillary refill and edema Psych Mental Status: mental status grossly normal Assessment & Plan Assessment & Plan (1) Varicose veins of right lower extremity with inflammation: Comment: 04/09/2023 - right great saphenous vein Cyanoacralate ablation 06/14/2023 - operative right lower extremity microphlebectomy Code(s): I83.11 - Varicose veins of right lower extremity with inflammation Plan: This patient has varicose veins with inflammation. They continue to be a source of discomfort for the patient. The patient has tried conservative treatment with compression, leg elevation and exercise program for over 3 months time. They have been compliant with all treatment. This has provided minimal relief for the patient. I do not anticipate this course of treatment will alter the underlying etiology. The patient has been scheduled for lower extremity venous treatment inclusive of --- right leg microphlebectomy. Risks, benefits, and complications of this procedure has been discussed in detail with the patient including but not limited to bleeding, infection, and the development of a DVT. The patient has demonstrated a clear understanding and has consented. We will schedule the patient as soon as possible. Thank you for allowing us to participate in this patient's care. If there are any questions or concerns please do not hesitate to contact us. Coding Level of Care Code Est Pt Level 4 (20443) Diagnoses Varicose veins of right lower extremity with inflammation I83.11
== END 2023-09-30 10:25 | disposition home or self-care (01) ==
PROVIDERS: Visit Provider Surgery Vascular Surgery
DX: I83.11 Varicose veins of right lower extremity with inflammation (principal)
CPT/HCPCS: 99214

== ENCOUNTER → 2023-09-30 09:43 | Outpatient (BNVA) | payer OTHER, SELFPAY | PROVIDERS: Visit Provider Surgery Vascular Surgery | DX: I83.11 Varicose veins of right lower extremity with inflammation (principal) | CPT/HCPCS: 99212 ==

== ENCOUNTER 2023-10-29 08:33 | Outpatient (AMB) | payer OTHER, SELFPAY ==
[2023-10-29 08:36] VITALS: BMI 28.1
--- NOTE | 2023-10-29 08:36 | MHC.OFFVIS ---
Intake Vital Signs 10/29/23 08:36 Height 5 ft 6 in Weight 174 lb BMI 28.1 Intake Visit Reasons: Right LE Micro/excision Allergies morphine [MORPHINE] Allergy (Mild, Verified 10/29/23 08:38) CONFUSION, hives, rash/ itchy PFSH Medical History Hematuria of unknown cause Knee pain Liver fibrosis Steatosis, liver Pre-op evaluation H. pylori infection Vitamin D deficiency Vitamin B1 deficiency Binge eating disorder Sleep apnea with use of continuous positive airway pressure (CPAP) DJD (degenerative joint disease) Kidney stones Morbid obesity Varicose veins of left lower extremity with inflammation DVT (deep venous thrombosis) Surgical History History of surgery History of abdominal surgery Hx of gastric bypass Hx of appendectomy Hx of varicose vein stripping Family History Mother Hypertension Father No problems noted. Brother No problems noted. Sister No problems noted. Sister No problems noted. Sister No problems noted. Sister No problems noted. Sister No problems noted. Sister No problems noted. Brother No problems noted. Brother No problems noted. Daughter No problems noted. 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 Varicose veins were marked in the standing position on the right leg and the patient was then placed in the supine position. The right lower extremity was prepared and draped to allow knee flexion in the sterile field. The patient had large superficial varicose veins with significant symptoms of pain. It was therefore determined to perform microphlebectomies of the clusters of varicose veins. The patient had bulging varicose veins which were previously marked in the standing position. A small stab incision was made longitudinally directly overlying the varicose vein in the calf and the varicose vein was grasped with a hemostat aided by a vein hook. It was then dissected as far proximally and distally as possible and avulsed. A total of 11 stab incisions were made and the procedure of stab phlebectomies was repeated 11 times. Hemostasis was checked and stab incision sites were closed with steri-strips and sterile dressing was given with gauze and krilex wrap followed by an fabrice bandage. There were no complications and blood loss was minimal. Post-Op instructions were given and a follow-up appointment was recommended. [id number] - Phleb Veins, Extrem - up to 20 All charges added?: Procedure code (CPT) selection complete Assessment & Plan Assessment & Plan (1) Varicose veins of right lower extremity with inflammation: Comment: 04/09/2023 - right great saphenous vein Cyanoacralate ablation 06/14/2023 - operative right lower extremity microphlebectomy 10/29/2023 - right leg microphlebectomy Code(s): I83.11 - Varicose veins of right lower extremity with inflammation Plan: See op note Coding Level of Care Code Procedure Only Diagnoses Varicose veins of right lower extremity with inflammation I83.11 CPT Codes Details - Vascular 5: 12850 - Phleb Veins, Extrem - up to 20 ([id number])
== END 2023-10-29 10:15 | disposition home or self-care (01) ==
PROVIDERS: Visit Provider Surgery Vascular Surgery
DX: I83.11 Varicose veins of right lower extremity with inflammation (principal)
CPT/HCPCS: 37765

== ENCOUNTER → 2023-10-29 08:33 | Outpatient (BNVA) | payer OTHER, SELFPAY | PROVIDERS: Visit Provider Surgery Vascular Surgery | DX: I83.11 Varicose veins of right lower extremity with inflammation (principal) | CPT/HCPCS: 37765 ==

== ENCOUNTER 2023-11-04 09:46 | Outpatient (AMB) | payer OTHER, SELFPAY ==
--- NOTE | 2023-11-04 09:51 | A.OFFVIS_ITS ---
Intake VS Expanded 11/04/23 10:11 BP 123/77 Blood Pressure Location Rt brachial Blood Pressure Position Sitting Pulse 70 Pulse Source Pulse Oximeter Temp 97.3 F Temperature Source Temporal Artery Scan Pulse Oximetry 98 Oxygen Delivery Method Room Air Height 5 ft 5.5 in Weight 160 lb 6.4 oz BMI 26.3 Body Fat % 21.3 Body Fat Mass 34.2 Fat Free Mass 126.2 Visceral Fat Rating 9.0 Body Water % 56.3 Body Water Mass 90.2 Muscle Mass/Score 119.8 Basal Metabolic Rate/Score 1,651 Intake Visit Reasons: (OV) PO LSG 10/14/21 Allergies morphine [MORPHINE] Allergy (Mild, Verified 11/04/23 10:05) CONFUSION, hives, rash/ itchy Medication List - Last Reconciled 11/04/23 by Kristen Ho PA-C [id number]-uku-qgkj-FA-vit K 45 mg iron- 800 mcg-120 mcg (Bariatric Multivitamins) caps PO oxycodone 5 mg PO BID PRN HPI HPI Comments History of Present Illness Details 48 yo man now 2 years s/p LSG and subseq uent panniculectomy. [employer] weight of 291.8, TBWL is 131.4 lbs or 45%. He has been able to keep his weight stable for one year. Had vein stripping procedure last week, recovering and no excercise until cleared. Exercise - treadmill 30 minutes for 400 calories 5d/week. Weights 5d/week does UE, Abd and LE. Meal plan: breakfast - 3 eggs lunch- protein bar snack apple dinner - 3-4 oz protein and 4 oz vegetable Post op complications: none CB: still using CPAP - needs retest DM: never HTN: resolved Hyperlipidemia: never GERD: 0- Satisfaction with present condition - satisfied [facility] Medical History (Updated 10/29/23 @ 11:02 by Stone Vasquez MD) Hematuria of unknown cause Knee pain Liver fibrosis Steatosis, liver Pre-op evaluation H. pylori infection Vitamin D deficiency Vitamin B1 deficiency Binge eating disorder Sleep apnea with use of continuous positive airway pressure (CPAP) DJD (degenerative joint disease) Kidney stones Morbid obesity Varicose veins of left lower extremity with inflammation DVT (deep venous thrombosis) Surgical History (Updated 11/04/23 @ 10:07 by Kristen Ho PA-C) History of surgery Hx of appendectomy Hx of varicose vein stripping Family History Mother Hypertension Father No problems noted. Brother No problems noted. Sister No problems noted. Sister No problems noted. Sister No problems noted. Sister No problems noted. Sister No problems noted. Sister No problems noted. Brother No problems noted. Brother No problems noted. Daughter No problems noted. 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 No changes made. Will get post op labs done now and send to PCP also. His panniculectomy scar healed very well but he is concerned about the dog ears , we discussed he can help this with oblique abd exercises and possibley liposuction - but he does not want to spend the money on liposuction. Next appt one year with PA. I spent 28 minutes in total with patient reviewing/updating records, examining the patient and counseling the patient on weight management as detailed above. (2) S/P laparoscopic sleeve gastrectomy: Code(s): Z98.84 - Bariatric surgery status (3) Status post sleeve gastrectomy: Comment: Sep Code(s): Z90.3 - Acquired absence of stomach [part of] (4) S/P panniculectomy: Code(s): Z98.890 - Other specified postprocedural states Plan see above Orders: Orders Hemoglobin A1c Today K91.2 - Postsurgical malabsorption, not elsewhere classified, Z90.3 - Acquired absence of stomach [part of], Z98.84 - Bariatric surgery status Lipid Panel Today K91.2 - Postsurgical malabsorption, not elsewhere classified, Z90.3 - Acquired absence of stomach [part of], Z98.84 - Bariatric surgery status Comprehensive Met. Panel Today K91.2 - Postsurgical malabsorption, not elsewhere classified, Z90.3 - Acquired absence of stomach [part of], Z98.84 - Bariatric surgery status Vitamin B12 and Folate Today K91.2 - Postsurgical malabsorption, not elsewhere classified, Z90.3 - Acquired absence of stomach [part of], Z98.84 - Bariatric surgery status Zinc Today K91.2 - Postsurgical malabsorption, not elsewhere classified, Z90.3 - Acquired absence of stomach [part of], Z98.84 - Bariatric surgery status Vitamin B1 Today K91.2 - Postsurgical malabsorption, not elsewhere classified, Z90.3 - Acquired absence of stomach [part of], Z98.84 - Bariatric surgery status TSH reflex Free T4 Today K91.2 - Postsurgical malabsorption, not elsewhere classified, Z90.3 - Acquired absence of stomach [part of], Z98.84 - Bariatric surgery status Ferritin Today K91.2 - Postsurgical malabsorption, not elsewhere classified, Z90.3 - Acquired absence of stomach [part of], Z98.84 - Bariatric surgery status Vitamin D 25-OH Total Today K91.2 - Postsurgical malabsorption, not elsewhere classified, Z90.3 - Acquired absence of stomach [part of], Z98.84 - Bariatric surgery status Insulin Today K91.2 - Postsurgical malabsorption, not elsewhere classified, Z90.3 - Acquired absence of stomach [part of], Z98.84 - Bariatric surgery status Complete Blood Count Auto Diff Today K91.2 - Postsurgical malabsorption, not elsewhere classified, Z90.3 - Acquired absence of stomach [part of], Z98.84 - Bariatric surgery status IRON PROFILE Today K91.2 - Postsurgical malabsorption, not elsewhere classified, Z90.3 - Acquired absence of stomach [part of], Z98.84 - Bariatric surgery status C Reactive Protein Today K91.2 - Postsurgical malabsorption, not elsewhere classified, Z90.3 - Acquired absence of stomach [part of], Z98.84 - Bariatric surgery status Vitamin A Today K91.2 - Postsurgical malabsorption, not elsewhere classified, Z90.3 - Acquired absence of stomach [part of], Z98.84 - Bariatric surgery status Coding Level of Care Code Est Pt Level 4 (69563) Diagnoses Overweight E66.3 S/P laparoscopic sleeve gastrectomy Z98.84 Status post sleeve gastrectomy Z90.3 S/P panniculectomy Z98.890
[2023-11-04 10:11] VITALS: BP 123/77; PULSE 70; TEMP 36.3; O2SAT 98; BMI 26.3
== END 2023-11-04 10:26 | disposition home or self-care (01) ==
PROVIDERS: Visit Provider Physician Assistant
DX: E66.3 Overweight (principal); Z98.84 Bariatric surgery status; Z90.3 Acquired absence of stomach [part of]; Z98.890 Other specified postprocedural states
CPT/HCPCS: 99214

== ENCOUNTER → 2023-11-04 09:46 | Outpatient (BNVA) | payer OTHER, SELFPAY | PROVIDERS: Visit Provider Physician Assistant | DX: E66.3 Overweight (principal); Z90.3 Acquired absence of stomach [part of]; Z98.890 Other specified postprocedural states; Z98.84 Bariatric surgery status; Z68.26 Body mass index [BMI] 26.0-26.9, adult | CPT/HCPCS: 99212 ==

== ENCOUNTER 2023-11-11 07:59 | Outpatient (REF) | payer OTHER, SELFPAY ==
[2023-11-11 08:14] LABS: MANUAL DIFF FLAG NO
[2023-11-11 08:22] LABS: Basophils Percent Auto 0.8 % (0-2); Eosinophils Absolute Auto 0.1 X10*3/uL (0.0-0.4); Eosinophils Percent Auto 1.9 % (0-4); Hematocrit 46.1 % (42.0-52.0); Imm Gran Abs Auto 0.01 X10*3/uL (0.00-0.03); Imm Gran Pct Auto 0.3 % (0.0-0.4); Lymphocytes Absolute Auto 1.5 X10*3/uL (1.2-4.9); Lymphocytes Percent Auto 39.7 % (20-40); Mean Corpuscular HGB Conc 32.5 g/dl (31.0-36.0); Mean Corpuscular Hemoglobin 29.5 pg (27.0-33.0); Mean Corpuscular Volume 90.6 fL (80.0-98.0); Mean Platelet Volume 9.7 fL (9.4-12.4); Monocytes Absolute Auto 0.4 X10*3/uL (0.1-1.2); Monocytes Percent Auto 11.6 % (2-11); Neutrophils Absolute Auto 1.7 x10*3/uL (2.0-8.3); Neutrophils Percent Auto 45.7 % (45-73); Platelet Count 223 X10*3/uL (160-400); Red Blood Count 5.09 X10*6/uL (4.60-5.80); Red Cell Distribution Width 13.9 % (11.0-16.0); White Blood Count 3.8 X10*3/uL (4.8-10.8)
[2023-11-11 08:33] LABS: Estimated Average Glucose 94 mg/dL; Hemoglobin A1c % 4.9 % (<6.0)
[2023-11-11 08:59] LABS: Alanine Aminotransferase 17 U/L (0-40); Albumin Level 4.3 g/dL (3.5-5.0); Alkaline Phosphatase 59 U/L (39-117); Anion Gap 9 (12-20); Aspartate Amino Transferase 17 U/L (5-37); Bilirubin Total 0.9 mg/dL (0.0-1.0); Blood Urea Nitrogen 16 mg/dL (9-16); C Reactive Protein 0.16 mg/dL (< or = 0.50); Carbon Dioxide 30 mmol/L (22-29); Chloride 105 mmol/L (96-108); Cholesterol 190 mg/dL (<200); Estimated Glomerular Filt Rate > 60; Glucose Random 94 mg/dL (60-115); HDL Cholesterol 50 mg/dL (>40); Iron 70 mcg/dL (45-160); LDL Cholesterol Calculated 130 mg/dL (<100); Percent Iron Saturation 30 % (15-50); Potassium 4.3 mmol/L (3.3-5.1); Sodium 140 mmol/L (135-145); Total Iron Binding Capacity 236 mcg/dL (228-428); Total Protein 7.5 g/dL (6.5-8.0); Triglycerides 54 mg/dL (<150); Unsaturated Iron Binding 166 ug/dL
[2023-11-11 09:17] LABS: Ferritin 713 ng/mL (20-250); Insulin 3 uU/mL (2-29); TSH reflex Free T4 1.17 uIU/mL (0.32-4.0); Vitamin D 25-OH Total 17.4 ng/mL (>30)
[2023-11-11 09:28] LABS: Folate 19.8 ng/mL (> or = 4.0); Vitamin B12 1013 pg/mL (200-900)
[2023-11-13 13:39] LABS: Zinc 70 mcg/dL (60-130)
[2023-11-14 18:53] LABS: Vitamin A 43 mcg/dL (38-98)
[2023-11-16 15:48] LABS: Vitamin B1 <6 nmol/L (8-30)
== END 2023-11-11 08:00 | disposition home or self-care (01) ==
LOC: HO.LAB 07:59
PROVIDERS: PCP Internal Medicine Geriatric Medicine; Visit Provider Physician Assistant
DX: K91.2 Postsurgical malabsorption, not elsewhere classified (principal); I83.11 Varicose veins of right lower extremity with inflammation; Z90.3 Acquired absence of stomach [part of]; Z98.84 Bariatric surgery status
CPT/HCPCS: 36415; 80053; 80061; 82306; 82607; 82728; 82746; 83036; 83525; 83540; 84425; 84443; 84590; 84630; 85025; 86140; 99212

== ENCOUNTER 2023-11-11 10:04 | Outpatient (AMB) | payer OTHER, SELFPAY ==
[2023-11-11 10:13] VITALS: BMI 26.2
--- NOTE | 2023-11-11 10:13 | MHC.OFFVIS ---
Intake Vital Signs 11/11/23 10:13 Height 5 ft 5.5 in Weight 160 lb BMI 26.2 Intake Visit Reasons: 2 week follow up Right micro 10/29/23 Intake Note: 2 week follow up Right LE Micro 10/29/23 w/ hx of Right Micro 06/14/23 and Hx of Right GSV Venaseal 04/09/23. Pt has had to bandage QOD over the top incision, all other incision are healed. One incision still draining Accompanied by: Self / Same As Patient Allergies morphine [MORPHINE] Allergy (Mild, Verified 11/11/23 10:20) CONFUSION, hives, rash/ itchy HPI 2 week follow up Right micro 10/29/23 HPI Details Pleasant 48-year-old gentleman presents for routine follow-up status post right lower extremity microphlebectomy. He has this 1 incision on the anterior aspect of the thigh which remains nonhealing. He now presents for follow-up. He does report it is significantly better in the drainage has decreased PFSH Medical History Hematuria of unknown cause Knee pain Liver fibrosis Steatosis, liver Pre-op evaluation H. pylori infection Vitamin D deficiency Vitamin B1 deficiency Binge eating disorder Sleep apnea with use of continuous positive airway pressure (CPAP) DJD (degenerative joint disease) Kidney stones Morbid obesity Varicose veins of left lower extremity with inflammation DVT (deep venous thrombosis) Surgical History (Updated 11/11/23 @ 10:21 by KEN Diez) History of surgery Hx of appendectomy Hx of varicose vein stripping Family History Mother Hypertension Father No problems noted. Brother No problems noted. Sister No problems noted. Sister No problems noted. Sister No problems noted. Sister No problems noted. Sister No problems noted. Sister No problems noted. Brother No problems noted. Brother No problems noted. Daughter No problems noted. 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) Alcohol intake: never Patient Tobacco Use Status: Never used Tobacco Review of Systems Const All systems reviewed & are unremarkable except as noted in HPI and below Reports no additional complaints ENT Reports Normal hearing present Card Denies chest pain, Denies chest pain at rest, Denies chest pain with activity and Denies pedal edema Resp Denies cough GI Denies abdominal pain Musc Denies abnormal gait, Denies muscle cramps and Denies radiating pain into limb Skin/Breast Denies skin ulcer and Denies wounds Neuro Reports Normal hearing present and Denies abnormal gait Psych Reports no additional complaints Physical Exam Vital Signs: BMI result Body Mass Index 26.2 Const General: cooperative, healthy appearing and comfortable Orientation/consciousness: oriented to person, oriented to place and oriented to time HEENT Head: Yes normal to inspection Neck Neck: Yes normal visual inspection Carotids: no bruits Chest Chest palpation & inspection: normal inspection of the chest Resp Effort & Inspection: normal respiratory effort and able to speak in complete sentences Auscultation: clear to auscultation bilaterally, no crackles, no rales, no rhonchi and no wheezes Cardio Rate: regular rate Rhythm: regular rhythm Heart sounds: S1 normal heart sound present and S2 normal heart sound present Bruits: no carotid bruits Peripheral pulses: Peripheral pulses 2+ throughout GI Inspection: Yes normal to inspection Skin Other: Right anterior upper thigh proximally a 2 cm incision nonhealing with suture spit. Sutures removed Wounds: no wounds Hair: normal Neuro General: oriented to person, oriented to place and oriented to time Cranial nerves: Yes CN's II-XII intact bilaterally and Yes Normal hearing present Cognition (Neuro): normal cognition Motor exam (neuro): 5/5 motor strength present throughout Extrem Other: venous exam: No significant superficial varicosities or spider telangiectasias, minimal edema General: No clubbing, No cyanosis and No edema Psych Appearance: grossly normal Mental Status: mental status grossly normal Speech and movement: Normal speech and movement present Assessment & Plan Assessment & Plan (1) Varicose veins of right lower extremity with inflammation: Comment: 04/09/2023 - right great saphenous vein Cyanoacralate ablation 06/14/2023 - operative right lower extremity microphlebectomy 10/29/2023 - right leg microphlebectomy Code(s): I83.11 - Varicose veins of right lower extremity with inflammation Plan: In short patient has this 1 nonhealing incision. It does appear to be doing significantly better. Will plan for 1 month follow-up. We did discuss routine wound care including protective dressings. Thank you for allowing us to assist in his care. If there are any questions or concerns please do not hesitate to contact us. Coding Level of Care Code Est Pt Level 3 (73079) Diagnoses Varicose veins of right lower extremity with inflammation I83.11
== END 2023-11-11 10:33 | disposition home or self-care (01) ==
PROVIDERS: Visit Provider Surgery Vascular Surgery
DX: I83.11 Varicose veins of right lower extremity with inflammation (principal)
CPT/HCPCS: 99213

== ENCOUNTER 2023-12-14 08:46 | Outpatient (AMB) | payer OTHER, SELFPAY ==
[2023-12-14 08:51] VITALS: BMI 26.2
--- NOTE | 2023-12-14 08:51 | MHC.OFFVIS ---
Intake Vital Signs 12/14/23 08:51 Height 5 ft 5.5 in Weight 160 lb BMI 26.2 Intake Visit Reasons: 1 mon wound check Intake Note: 1 mo follow up wound check s/p Right LE Micro 10/29/23. Pt states incision finally healed, and is not sure if he has large VV on his LE anymore, states legs feel better. Accompanied by: Self / Same As Patient Allergies morphine [MORPHINE] Allergy (Mild, Verified 12/14/23 08:54) CONFUSION, hives, rash/ itchy HPI 1 mon wound check HPI Details Very pleasant 48-year-old gentleman presents for follow-up regarding nonhealing right leg microphlebectomy incision. He had a 1 incision on the anterior aspect of the thigh which remained nonhealing. Now presents for follow-up. Drainage and discomfort have decreased significantly. Now presents for routine follow-up. [facility] Medical History Hematuria of unknown cause Knee pain Liver fibrosis Steatosis, liver Pre-op evaluation H. pylori infection Vitamin D deficiency Vitamin B1 deficiency Binge eating disorder Sleep apnea with use of continuous positive airway pressure (CPAP) DJD (degenerative joint disease) Kidney stones Morbid obesity Varicose veins of left lower extremity with inflammation DVT (deep venous thrombosis) Surgical History History of surgery Hx of appendectomy Hx of varicose vein stripping Family History Mother Hypertension Father No problems noted. Brother No problems noted. Sister No problems noted. Sister No problems noted. Sister No problems noted. Sister No problems noted. Sister No problems noted. Sister No problems noted. Brother No problems noted. Brother No problems noted. Daughter No problems noted. 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) Alcohol intake: never Patient Tobacco Use Status: Never used Tobacco Review of Systems Const All systems reviewed & are unremarkable except as noted in HPI and below Reports no additional complaints ENT Reports Normal hearing present Card Denies chest pain, Denies chest pain at rest, Denies chest pain with activity and Denies pedal edema Resp Denies cough GI Denies abdominal pain Musc Denies abnormal gait, Denies muscle cramps and Denies radiating pain into limb Skin/Breast Denies skin ulcer and Denies wounds Neuro Reports Normal hearing present and Denies abnormal gait Psych Reports no additional complaints Physical Exam Vital Signs: BMI result Body Mass Index 26.2 Const General: cooperative, healthy appearing and comfortable Orientation/consciousness: oriented to person, oriented to place and oriented to time HEENT Head: Yes normal to inspection Neck Neck: Yes normal visual inspection Carotids: no bruits Chest Chest palpation & inspection: normal inspection of the chest Resp Effort & Inspection: normal respiratory effort and able to speak in complete sentences Auscultation: clear to auscultation bilaterally, no crackles, no rales, no rhonchi and no wheezes Cardio Rate: regular rate Rhythm: regular rhythm Heart sounds: S1 normal heart sound present and S2 normal heart sound present Bruits: no carotid bruits Peripheral pulses: Peripheral pulses 2+ throughout GI Inspection: Yes normal to inspection Skin Other: Skin incision appears to be well he Wounds: no wounds Hair: normal Neuro General: oriented to person, oriented to place and oriented to time Cranial nerves: Yes CN's II-XII intact bilaterally and Yes Normal hearing present Cognition (Neuro): normal cognition Motor exam (neuro): 5/5 motor strength present throughout Extrem Other: venous exam: No significant superficial varicosities or spider telangiectasias, minimal edema General: No clubbing, No cyanosis and No edema Psych Appearance: grossly normal Mental Status: mental status grossly normal Speech and movement: Normal speech and movement present Assessment & Plan Assessment & Plan (1) Varicose veins of right lower extremity with inflammation: Comment: 04/09/2023 - right great saphenous vein Cyanoacralate ablation 06/14/2023 - operative right lower extremity microphlebectomy 10/29/2023 - right leg microphlebectomy Code(s): I83.11 - Varicose veins of right lower extremity with inflammation Plan: In short nonhealing ulcer has gone on to heal. He appears to be doing extremely well with all his veins. In addition he has gone on to lost nearly 140 lb. He has been doing extremely well. I congratulated him on his significant change in his health and status. We did discuss routine conservative measures including compression elevation and exercise. At the current time he is veins are stable and should they reoccur or be an issue in the future I requested that he reach back out to us. Thank you for allowing us to take care of this very nice gentleman. Coding Level of Care Code Est Pt Level 4 (74367) Diagnoses Varicose veins of right lower extremity with inflammation I83.11
== END 2023-12-14 09:39 | disposition home or self-care (01) ==
PROVIDERS: PCP Internal Medicine Geriatric Medicine; Visit Provider Surgery Vascular Surgery
DX: I83.11 Varicose veins of right lower extremity with inflammation (principal)
CPT/HCPCS: 99213

== ENCOUNTER → 2023-12-14 08:46 | Outpatient (BNVA) | payer OTHER, SELFPAY | PROVIDERS: PCP Internal Medicine Geriatric Medicine; Visit Provider Surgery Vascular Surgery | DX: I83.11 Varicose veins of right lower extremity with inflammation (principal) | CPT/HCPCS: 99212 ==

== ENCOUNTER 2023-12-22 17:57 | Outpatient (REF) | payer OTHER, SELFPAY ==
[2023-12-22 19:03] LABS: Influenza A PCR NEGATIVE (Negative); Influenza B PCR NEGATIVE (Negative); Resp Syncy Virus RNA Qual PCR NEGATIVE (Negative); SARS COV2 PCR INHOUSE NEGATIVE (Negative)
== END 2023-12-22 17:58 | disposition home or self-care (01) ==
LOC: HO.HHCLNP 17:57
PROVIDERS: Visit Provider Emergency Medicine
DX: J02.9 Acute pharyngitis, unspecified (principal); L53.9 Erythematous condition, unspecified
CPT/HCPCS: 0241U; 87070

== ENCOUNTER 2024-05-16 15:44 | Emergency (ER) | payer OTHER, SELFPAY ==
--- NOTE | ~2024-05-16 | CT_ITS ---
EXAMINATION: CT HEAD WITHOUT CONTRAST CLINICAL INFORMATION: Severe headache. COMPARISON: CT head from 01/11/2019. TECHNIQUE: Contiguous axial imaging was performed from the skull base to vertex without intravenous administration of contrast. This CT examination was performed using dose optimization techniques as appropriate, variously including the following: *Automated exposure control. *Adjustment of mA and/or kV according to patient size (this includes techniques or standardized protocols for targeted exams where dose is matched to indication/reason for exam; i.e. extremities or head). *Use of iterative reconstruction technique. DLP: 755 mGy-cm FINDINGS: There is no evidence of acute intracranial hemorrhage or edematous territorial infarction. Stephenson-white matter differentiation is preserved. There is no abnormal attenuation within the brain parenchyma. Persistent cavum veli interpositi. Otherwise, the ventricles are normal in morphology and size. No evidence for obstructive hydrocephalus. The suprasellar cistern remains widely patent. The cerebellar tonsils are normally positioned. No abnormal mass effect or midline shift. No extra-axial fluid collections. Calcific atherosclerotic disease of the intracranial internal carotid arteries. No hyperdense vessels. No acute soft tissue or osseous abnormalities. Mild mucosal thickening of the paranasal sinuses. Moderate leftward nasal septal deviation. The mastoid air cells and middle ear cavities are clear. Chronic depression of the left lamina preparation. CT/CT head/brain wo IV con IMPRESSION: No evidence of acute intracranial hemorrhage or edematous territorial infarction. Electronically signed by: Chuck Richard DO 05/16/2024 06:59 PM EDT
[2024-05-16 16:04] VITALS: BP 138/84; PULSE 63; RESP 18; TEMP 36.4; O2SAT 96; BMI 27.2
--- NOTE | 2024-05-16 16:04 | ED.GENADULT ---
HPI - General Adult General Chief complaint: Headache Stated complaint: Headache Time Seen by Provider: 05/16/24 19:52 Source: patient Mode of arrival: ambulatory Limitations: no limitations History of Present Illness ED Provider: amanda PUCKETT narrative: Patient complaining right-sided headache just started about 4 hours no nausea no vomiting no light sensitivity no history of migraine headache Related Data Home Medications ?Medication ?Instructions ?Recorded ?Confirmed oxycodone 5 mg tablet 5 mg PO BID PRN Severe Pain (Scale 07/01/22 11/04/23 Score 7-10) hwovnaqr-sbyczwia-snle 45 mg-folic cap PO 04/30/23 11/04/23 acid 800 mcg-vit K 120 mcg capsule (Bariatric Multivitamins) Previous Rx's ?Medication ?Instructions ?Recorded cholecalciferol (vitamin D3) 50 50 mcg PO DAILY #90 caps 11/11/23 mcg (2,000 unit) capsule xsluusxavq-aqlhafovdgrjp-ycgexlaf 1 tab PO Q6H PRN haeadace #20 tabs 05/16/24 50 mg-325 mg-40 mg tablet Allergies Allergy/AdvReac Type Severity Reaction Status Date / Time morphine [MORPHINE] Allergy Mild CONFUSION, Verified 05/16/24 16:07 hives, rash/ itchy Review of Systems Review of Systems: Yes all other systems are reviewed and are negative PMFSH Past Medical History Medical History Hematuria of unknown cause Knee pain Liver fibrosis Steatosis, liver Pre-op evaluation H. pylori infection Vitamin D deficiency Vitamin B1 deficiency Binge eating disorder Sleep apnea with use of continuous positive airway pressure (CPAP) DJD (degenerative joint disease) Kidney stones Morbid obesity Varicose veins of left lower extremity with inflammation DVT (deep venous thrombosis) Surgical History History of surgery Hx of appendectomy Hx of varicose vein stripping Family History Family History Mother Hypertension Father No problems noted. Brother No problems noted. Sister No problems noted. Sister No problems noted. Sister No problems noted. Sister No problems noted. Sister No problems noted. Sister No problems noted. Brother No problems noted. Brother No problems noted. Daughter No problems noted. 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 Oriented X3. No acute distress. Eyes: PERRLA, No Nystagmus ENT: Pharynx normal. Oral Mucosa moist no temporal artery tenderness mild right scalp tenderness no signs of infection Neck: Normal inspection. Neck supple. CVS: Normal heart rate and rhythm. Pulses normal. Respiratory: No respiratory distress. Equal air entry bilateral, no wheezing/rales/rhonchi Abdomen: Soft and nontender. Bowel sounds are present, no mass palpable, no CVA tenderness Skin: Skin warm and dry. Normal skin color. Normal skin turgor. Extremities: No lower extremity edema. No calf tenderness Neuro: Oriented X 3. No motor deficit. No sensory deficit.No cerebellar signs , cranial nerves II-XII intact Course Course Course Narrative: This is an RME done by GAIL Sanches: Additional HPI, ROS, PE not included below will be deferred to primary provider. 48 year old male presenting with concerns of severe 10/10 right-sided headache since this morning. Denies any visual symptoms. Plan - imaging, labs Appearance: Alert.? Oriented X3.? No acute cardiopulmonary distress distress.? Head: Normocephalic, atraumatic, no step-offs or deformities Neck: Normal inspection.? Neck supple.? CVS: Pulses normal.? Respiratory: No respiratory distress.? Abdomen: Soft and nontender.? Skin: ? Normal skin color. Extremities: 5/5 strength to bilateral upper and lower extremities Neuro: Oriented X 3.? No motor deficit.? No sensory deficit. Medical Decision Making Medical Decision Making MDM Narrative: Patient nonspecific right-sided headache CT scan negative for acute discharge patient on Fioricet Differential Diagnosis Differential Diagnoses: The differential diagnosis associated with the presentation includes Tension headache/migraine/SAH Lab Data MDM Lab Attestation statement: I reviewed the patient's lab results. Labs: Lab Results 05/16/24 Range/Units 16:55 Influenza Type A (PCR) NEGATIVE (Negative) Influenza Type B (PCR) NEGATIVE (Negative) RSV RNA Qual (PCR) NEGATIVE (Negative) SARS-CoV-2 RNA (RT-PCR) NEGATIVE (Negative) Independent Interpretation I performed an independent interpretation of an: CT Scan Radiology Impression Discussion of test interpretation with radiology: I have reviewed the radiologist's reading. Radiologist Impression: Normal Discharge Plan Discharge Clinical Impression: Headache Patient Disposition: Home, Self-Care Instructions: General Headache (ED) Additional Instructions: Your CT scan is negative for acute Take Fioricet 1 tablet every 6-8 hours as needed for headache Follow with PCP Prescriptions: New itkckbaizk-zrusrfxhwruhs-whgu 50-325-40 mg tablet 1 tab PO Q6H PRN (Reason: haeadace) Qty: 20 0RF No Action cholecalciferol (vitamin D3) 50 mcg (2,000 unit) capsule 50 mcg PO DAILY Qty: 90 3RF oxycodone 5 mg tablet 5 mg PO BID PRN (Reason: Severe Pain (Scale Score 7-10)) Bariatric Multivitamins 45 mg iron- 800 mcg-120 mcg capsule PO Print Language: Malawian
[2024-05-16 17:52] LABS: Influenza A PCR NEGATIVE (Negative); Influenza B PCR NEGATIVE (Negative); Resp Syncy Virus RNA Qual PCR NEGATIVE (Negative); SARS COV2 PCR INHOUSE NEGATIVE (Negative)
[2024-05-16 19:27] VITALS: BP 134/85; PULSE 58; RESP 16; TEMP 36.5; O2SAT 99
[2024-05-16] MEDS: Butalb/Acetamin/Caff 50/325/40 TABLET 1 TAB PO (20:35)
--- NOTE | 2024-05-16 20:36 | PC.NURSE ---
pt medicated per orders
[2024-05-16 20:37] VITALS: BP 131/86; PULSE 64; RESP 18; TEMP 36.6; O2SAT 99
== END 2024-05-16 20:37 | disposition home or self-care (01) ==
PROVIDERS: Physician Assistant; Emergency Provider Internal Medicine; PCP Internal Medicine Geriatric Medicine
DX: R51.9 Headache, unspecified (principal); Z03.818 Encounter for observation for suspected exposure to other biological agents ruled out; Z79.899 Other long term (current) drug therapy
CPT/HCPCS: 0241U; 70450; 99283; 99284

== ENCOUNTER 2024-06-01 10:09 | Outpatient (REF) | payer OTHER, SELFPAY ==
[2024-06-01 11:57] LABS: Vitamin D 25-OH Total 39.9 ng/mL (>30)
[2024-06-06 13:23] LABS: Vitamin B1 <6 nmol/L (8-30)
== END 2024-06-01 10:10 | disposition home or self-care (01) ==
LOC: HO.HHCL 10:09
PROVIDERS: Visit Provider Internal Medicine Geriatric Medicine
DX: E55.9 Vitamin D deficiency, unspecified (principal); E51.9 Thiamine deficiency, unspecified; Z90.3 Acquired absence of stomach [part of]
CPT/HCPCS: 36415; 82306; 84425

== ENCOUNTER 2024-11-03 09:15 | Outpatient (AMB) | payer OTHER, SELFPAY ==
--- NOTE | 2024-11-03 09:25 | A.OFFVIS_ITS ---
VS Expanded 11/03/24 09:30 BP 134/78 Blood Pressure Location Rt brachial Blood Pressure Position Sitting Pulse 74 Pulse Source Pulse Oximeter Temp 98.2 F Temperature Source Temporal Artery Scan Pulse Oximetry 98 Oxygen Delivery Method Room Air Height 5 ft 5.5 in Weight 150 lb 9.6 oz BMI 24.7 Body Fat % 17.9 Body Fat Mass 26.8 Fat Free Mass 12.6 Visceral Fat Rating 8.0 Body Water % 58.9 Body Water Mass 88.6 Muscle Mass/Score 117.6 Basal Metabolic Rate/Score 1,607 Intake Visit Reasons: (OV) PO LSG 10/14/21 Professor Of Food Biochemistry Required: No Professor Of Food Biochemistry Services: Professor Of Food Biochemistry Offered & Declined Allergies morphine [MORPHINE] Allergy (Mild, Verified 11/03/24 09:29) CONFUSION, hives, rash/ itchy Medication List - Last Reconciled 11/03/24 by GAIL Khanna cqfoeswdvc-bglpctprkatmm-llkf 50-325-40 mg 1 tab PO Q6H PRN cholecalciferol (vitamin D3) 50 mcg PO DAILY dxgzwaqbvsxd-iml-ztzs-FA-vit K 45 mg iron- 800 mcg-120 mcg (Bariatric Multivitamins) caps PO oxycodone 5 mg PO BID PRN HPI Comments Details: 49 yo man now 3 years s/p LSG on 10/14/2021 and subsequent panniculectomy with umbilical transposition and bilateral subcutaneous fat flaps, repair of 6 separate incisional and incarcerated ventral hernias on 11/06/2022. LPN weight of 291.8 lb. He was last seen in the office on 11/04/2023 with a weight of 160.4 lb and a BMI of 26.3. Weight today is 150.6 lb with a BMI of 24.3. No trouble with moving bowels. Satisfied with his meal plan. Meal plan: breakfast - 2 eggs lunch- celebrate protein bar dinner - 3 oz protein and 3 oz vegetable drinking 64-80 Exercise plan: nothing formal has PF gym membership Post op complications: none CB: still using CPAP - needs retest DM: never HTN: resolved Hyperlipidemia: never GERD: 0- Satisfaction with present condition - satisfied [facility] Medical History Hematuria of unknown cause Knee pain Liver fibrosis Steatosis, liver Pre-op evaluation H. pylori infection Vitamin D deficiency Vitamin B1 deficiency Binge eating disorder Sleep apnea with use of continuous positive airway pressure (CPAP) DJD (degenerative joint disease) Kidney stones Morbid obesity Varicose veins of left lower extremity with inflammation DVT (deep venous thrombosis) Surgical History S/P laparoscopic sleeve gastrectomy History of surgery Hx of appendectomy Hx of varicose vein stripping Family History Mother Hypertension Father No problems noted. Brother No problems noted. Sister No problems noted. Sister No problems noted. Sister No problems noted. Sister No problems noted. Sister No problems noted. Sister No problems noted. Brother No problems noted. Brother No problems noted. Daughter No problems noted. Social History Are you a primary caretaker to a significant other at home: No Do you presently have visiting nurse or other home services: Yes ([employer]) Alcohol intake: never Patient Tobacco Use Status: Never used Tobacco Physical Exam Const General: cooperative and no acute distress Orientation/consciousness: patient oriented x3 Resp Effort & Inspection: normal respiratory effort Auscultation: clear to auscultation bilaterally Cardio Rate: regular rate Rhythm: regular rhythm GI Inspection: Yes normal to inspection and Yes incision (well healed) Palpation (GI): Soft to palpation and no masses Neuro General: patient oriented x3 Assessment & Plan Assessment & Plan (1) S/P laparoscopic sleeve gastrectomy: Code(s): Z98.84 - Bariatric surgery status Category: Surgical Plan: Overall, patient is doing well. He has maintained a healthy and stable weight. We will check yearly labs. I did encourage him to return to [employer] utilizing both cardio and weight training. He will contact us with any questions or concerns. Continue multivitamin. Follow-up in the office as scheduled. Orders: Orders Insulin Today G47.30 - Sleep apnea, unspecified, I10 - Essential (primary) hypertension, K74.00 - Hepatic fibrosis, unspecified, K76.0 - Fatty (change of) liver, not elsewhere classified, Z98.84 - Bariatric surgery status Hemoglobin A1c Today G47.30 - Sleep apnea, unspecified, I10 - Essential (primary) hypertension, K74.00 - Hepatic fibrosis, unspecified, K76.0 - Fatty (change of) liver, not elsewhere classified, Z98.84 - Bariatric surgery status Vitamin B12 and Folate Today G47.30 - Sleep apnea, unspecified, I10 - Essential (primary) hypertension, K74.00 - Hepatic fibrosis, unspecified, K76.0 - Fatty (change of) liver, not elsewhere classified, Z98.84 - Bariatric surgery status C Reactive Protein Today G47.30 - Sleep apnea, unspecified, I10 - Essential (primary) hypertension, K74.00 - Hepatic fibrosis, unspecified, K76.0 - Fatty (change of) liver, not elsewhere classified, Z98.84 - Bariatric surgery status Vitamin A Today G47.30 - Sleep apnea, unspecified, I10 - Essential (primary) hypertension, K74.00 - Hepatic fibrosis, unspecified, K76.0 - Fatty (change of) liver, not elsewhere classified, Z98.84 - Bariatric surgery status TSH reflex Free T4 Today G47.30 - Sleep apnea, unspecified, I10 - Essential (primary) hypertension, K74.00 - Hepatic fibrosis, unspecified, K76.0 - Fatty (change of) liver, not elsewhere classified, Z98.84 - Bariatric surgery status Vitamin D 25-OH Total Today G47.30 - Sleep apnea, unspecified, I10 - Essential (primary) hypertension, K74.00 - Hepatic fibrosis, unspecified, K76.0 - Fatty (change of) liver, not elsewhere classified, Z98.84 - Bariatric surgery status Complete Blood Count Auto Diff Today G47.30 - Sleep apnea, unspecified, I10 - Essential (primary) hypertension, K74.00 - Hepatic fibrosis, unspecified, K76.0 - Fatty (change of) liver, not elsewhere classified, Z98.84 - Bariatric surgery status Lipid Panel Today G47.30 - Sleep apnea, unspecified, I10 - Essential (primary) hypertension, K74.00 - Hepatic fibrosis, unspecified, K76.0 - Fatty (change of) liver, not elsewhere classified, Z98.84 - Bariatric surgery status IRON PROFILE Today G47.30 - Sleep apnea, unspecified, I10 - Essential (primary) hypertension, K74.00 - Hepatic fibrosis, unspecified, K76.0 - Fatty (change of) liver, not elsewhere classified, Z98.84 - Bariatric surgery status Comprehensive Met. Panel Today G47.30 - Sleep apnea, unspecified, I10 - Essential (primary) hypertension, K74.00 - Hepatic fibrosis, unspecified, K76.0 - Fatty (change of) liver, not elsewhere classified, Z98.84 - Bariatric surgery status Zinc Today G47.30 - Sleep apnea, unspecified, I10 - Essential (primary) hypertension, K74.00 - Hepatic fibrosis, unspecified, K76.0 - Fatty (change of) liver, not elsewhere classified, Z98.84 - Bariatric surgery status Vitamin B1 Today G47.30 - Sleep apnea, unspecified, I10 - Essential (primary) hypertension, K74.00 - Hepatic fibrosis, unspecified, K76.0 - Fatty (change of) liver, not elsewhere classified, Z98.84 - Bariatric surgery status Ferritin Today G47.30 - Sleep apnea, unspecified, I10 - Essential (primary) hypertension, K74.00 - Hepatic fibrosis, unspecified, K76.0 - Fatty (change of) liver, not elsewhere classified, Z98.84 - Bariatric surgery status
[2024-11-03 09:30] VITALS: BP 134/78; PULSE 74; TEMP 36.8; O2SAT 98; BMI 24.7
--- OUTSIDE RECORDS SUMMARY | 2024-11-03 09:40 | XMS_ITS | Encounter Summary ---
Author Organization [employer] Address [address] [facility] 7t [place] [address] Care Team Providers Care Block Bolter Mule Operator Name Role Phone Name, Logan ZAPATA Primary Care Provider [phone] Reason for Visit * Reason Onset Date Comments Nurse Triage 12/22/2023 Encounter Details Date Type Department Care Team ([facility] st Contact Info) Description 12/22/2023 Telephone [facility] MEDICINE [address] [place] [address] [phone] Name, MD Logan [address] [place] [address] Nurse Triage Social History Tobacco Use Types Packs/Day Years Used Date Smoking Tobacco: Never Smokeless Tobacco: Never Alcohol Use Standard Drinks/Week Comments Never 0 (1 standard drink = 0.6 oz pur e alcohol) Depression Answer Date Recorded Patient Health Questionnaire-9 Score 0 08/09/2023 Patient Health Questionnaire-9 Score 0 08/09/2023 Last PHQ-9: Questionnaire Data Not on file 1 10/09/2022 Housing Stability Answer Date Recorded What is your housing situation today? I have laura galvin 12/08/[address] you li ve. Do you have problems with any of the following? None of the above 12/08/2023 Food Insecurity Answer Date Recorded Within the past 12 months, y ou worried that your food would run out before you got money to buy more: Never True 12/08/2023 Within the past 12 months,th e food you bought just didn't last and you didn't have enough money to get more: Never True Transportation Answer Date Recorded In the past 12 months, has l ack of transportation kept you from medical appts, meetings, work or from getting things needed for daily living? No 12/08/2023 Utilities Answer Date Recorded In the past 12 months, has t he electric, gas, oil or water company threatened to shut off services in your home? No 12/08/2023 Depression Answer Date Recorded Patient Health Questionnaire-2 Score 0 08/09/2023 Sex and Gender Information Value Date Recorded Sex Assigned at Male 07/20/2022 10:18 AM EDT Legal Sex Male 10:18 AM EDT Gender Identity Male 07/20/2022 10:18 AM EDT Sexual Orientation Straight 07/20/2022 10 :18 AM EDT documented as of this encounter Miscellaneous Notes * Telephone Encounter - Rima Domínguez RN - 12/22/2023 3:24 PM EDT Triage call with [employer] [place] [id number] Pt reports a sore throat which started yesterday. Pt reports neg for fever, pain with swallowing, neg for earache but, jaw hurts when open and close . Pt is advised to come to [facility] today for provider to see Pt. Pt reports, I don't want to go there all I want is some medication . Pt is advised in order to receive medication Pt must come to see provider to evaluate sore throat. Pt said , thank you and ended call. Insurance is verified as active prior to booking. Protocol Used: Sore Throat (Adult) Protocol-Based Disposition: See in Office or Video Visit Today Video visit not offered Positive Triage Question: * Severe sore throat pain * All higher-acuity triage questions were negative Care Advice Discussed: * Reassurance and Education - Sore Throat * Sore Throat * Soft Diet * Drink Plenty of Liquids * Pain and Fever Medicines * Pain and Fever Medicines - Extra Notes and Warnings * Contagiousness * Expected Course * Reasons To Call Back - Sore throat is the main symptom and it lasts longer than 48 hours - Sore throat is mild but lasts longer than 4 days - Fever lasts longer than 3 days - You become worse * Telephone Encounter - Avni Martinez - 12/22/2023 3:05 PM EDT Symptom: Sore Throat Outcome: Talk to a nurse or provider within 15 minutes Reason: Can't swallow saliva (drooling) The caller accepted this outcome Patient speaks telugu documented in this encounter Plan of Treatment Upcoming Encounters Date Type Department Care Team (Late st Contact Info) Description 11/13/2024 1:00 PM EST Office Visit [address] [address] Name, MD Logan [address] [place] [phone] 11/21/2024 9:00 AM EST Clinical Support [address] [address] Naheed Mckeon RN documented as of this encounter Visit Diagnoses Not on filedocumented in this encounter Additional Health Concerns Assessment Noted Time PHQ-9 Depression Total Score: 0 08/09/20 10:09 AM EST documented as of this encounter Care Teams Block Bolter Mule Operator Relationship Specialty Start Date End Date Name, MD Logan [address] [place] [phone] PCP - General Family Medicine 05/05/17 documented as of this encounter
--- OUTSIDE RECORDS SUMMARY | 2024-11-03 09:40 | XMS_ITS | Encounter Summary ---
Author Organization [employer] Address [address] [place] [address] Care Team Providers Care Installation Coordinator Name Role Phone Name, Logan ZAPATA Primary Care Provider [phone] Encounter Details Date Type Department Care Team ([facility] st Contact Info) Description 03/01/2024 Orders Only [facility] [address] [place] [address] ProviderShin MD Social History Tobacco Use Types Packs/Day Years [...] is your housing situation today? I have lauraedi galvin 12/08/[address] you [...] AM EDT documented as of this encounter Plan of Treatment Upcoming Encounters Date Type Department Care Team (Late st Contact Info) Description 11/13/2024 1:00 PM EST Office Visit [address] [address] Name, MD Logan [address] [place] [phone] 11/21/2024 9:00 AM EST Clinical Support [address] [address] Naheed Mckeon, FLOR documented as of this encounter Procedures Procedure Name Priority Date/Time Associated Diagnosis Comments DERMATOPATHOLOGY REPORT Routine 02/15/2024 4:03 PM EDT documented in this encounter Results * Dermatopathology Report (02/15/2024 4:03 PM EDT) us Historical Provider LAB BLOOD ORDERABLES Kristen l Result documented in this encounter Visit Diagnoses Not on filedocumented in this encounter Additional Health Concerns Assessment Noted Time PHQ-9 Depression Total Score: 0 08/09/20 10:09 AM EST documented as of this encounter Care Teams Installation Coordinator Relationship Specialty Start Date End Date Name, MD Logan [address] [place] [phone] PCP - General Family Medicine 05/05/17 documented as of this encounter
--- OUTSIDE RECORDS SUMMARY | 2024-11-03 09:40 | XMS_ITS | Encounter Summary ---
Author Organization [employer] Address [address] [facility] [address] [place] [address] Care Team Providers Care Engine Testing Supervisor Name Role Phone Name, Logan ZAPATA Primary Care Provider [phone] Reason for Visit * Reason Onset Date Comments referral status 03/02/2023 Encounter Details Date Type Department Care Team ([facility] st Contact Info) Description 03/02/2023 Telephone [facility] MEDICINE [address] [place] [phone] Name, MD Logan [address] [place] [phone] referral status Social History Tobacco Use Types Packs/Day Years Used Date Smoking Tobacco: Never Smokeless Tobacco: Never Alcohol Use Standard Drinks/Week Comments Never 0 (1 standard drink = 0.6 oz pur e alcohol) Sex and Gender Information Value Date Recorded Sex Assigned at Male 07/20/2022 10:18 AM EDT Legal Sex Male 10:18 AM EDT Gender Identity Male 07/20/2022 10:18 AM EDT Sexual Orientation Straight 07/20/2022 10 :18 AM EDT COVID-19 Exposure Response Date Recorded In the last 10 days, have yo u been in contact with someone who was confirmed or suspected to have Coronavirus/COVID-19? No / Unsure 03/04/2023 12:35 PM EDT documented as of this encounter Miscellaneous Notes * Telephone Encounter - Maddison Zuleta - 04/09/2023 10:59 AM EDT The patient referral was and February and we are still working old referral and this is not an emergency Referral. * Telephone Encounter - Josey Valdes - 03/02/2023 3:01 PM EDT Tc from pt would like to know where referral to optometry was sent to ? documented in this encounter Plan of Treatment Upcoming Encounters Date Type Department Care Team (Late st Contact Info) Description 11/13/2024 1:00 PM EST Office Visit [address] [address] Name, MD Logan [address] [place] [phone] 11/21/2024 9:00 AM EST Clinical Support [address] [address] Naheed Mckeon, FLOR documented as of this encounter Visit Diagnoses Not on filedocumented in this encounter Care Teams Engine Testing Supervisor Relationship Specialty Start Date End Date Name, MD Logan [address] [place] [phone] PCP - General Family Medicine 05/05/17 documented as of this encounter
--- OUTSIDE RECORDS SUMMARY | 2024-11-03 09:40 | XMS_ITS | Encounter Summary ---
Author Organization [employer] Address [address] [facility] 7t [place] [address] Care Team Providers Care Wireline Operator Name Role Phone Name, Logan ZAPATA Primary Care Provider [phone] Reason for Visit * Reason Onset Date Comments Med Refill 04/06/2024 Encounter Details Date Type Department Care Team ([facility] Contact Info) Description 04/06/2024 Telephone [facility] MEDICINE [address] [place] [address] [phone] Name, MD Logan [address] [place] [address] Med Refill Social History Tobacco Use Types Packs/Day Years [...] encounter Miscellaneous Notes * Telephone Encounter - Amador Wolf RN - 04/06/2024 2:44 PM EDT Mass pat checked on 04/06/2024, last time filled on 03/09 for 28 days supply, qty - 28. At [facility] at [facility]. [facility] for approval. * Telephone Encounter - Avni Martinez - 04/06/2024 2:31 PM EDT TC from pt requesting medication refill. Medications needing refill : oxyCODONE-acetaminophen (Percocet) 5-325 MG tablet To be sent to: [id number] [address] [facility] documented in this encounter Plan of Treatment Upcoming Encounters Date Type Department Care Team (Late st Contact Info) Description 11/13/2024 1:00 PM EST Office Visit [address] [address] Name, MD Logan [address] [place] [phone] 11/21/2024 9:00 AM EST Clinical Support [address] [address] Naheed Mckeon, RN documented as of this encounter Visit Diagnoses Not on filedocumented in this encounter Additional Health Concerns Assessment Noted Time PHQ-9 Depression Total Score: 0 08/09/20 23 10:09 AM EST documented as of this encounter Care Teams Wireline Operator Relationship Specialty Start Date End Date Name, MD Logan [address] [place] [address] PCP - General Family Medicine 05/05/17 documented as of this encounter
--- OUTSIDE RECORDS SUMMARY | 2024-11-03 09:40 | XMS_ITS | Clinical Summary ---
Author Organization [employer] Address [address] [place] [address] 7t [place] [address] Care Team Providers Care Pattern Lease Inspector Name Role Phone Name, Logan ZAPATA Primary Care Provider [phone] Allergies Active Allergy Reactions Criticality Noted Date Comments Morphine 05/26/2017 Other reaction(s): Rash Medications Glycerin-Hyprom ellose-PEG 400 (Dry Eye Relief Drops) 0.2-0.2-1 % solutionIndicat ions:Dry eye Administer 1 drop into each eye up to four times daily 30 mL 3 3 Active ketotifen (Zaditor) 0.025 % ophthalmic solutionIndicat ions:Dry eye Administer 1 drop into both eyes 2 times daily. 10 mL 3 3 Active thiamine (Vitamin B-1) 100 MG tablet Take 1 tablet (100 mg) by mouth Once per day. 30 tablet 11 4 06/06/20 25 Active naloxone (Narcan) 4 mg/0.1 mL nasal sprayIndication s:Chronic pain of both knees Administer 1 spray (4 mg) into affected nostril(s) if needed for opioid reversal. 2 each 2 4 Active oxyCODONE-aceta minophen (Percocet) 5-325 MG tabletIndicatio ns:Chronic pain of both knees Take 1 tablet by mouth if needed each day for severe pain for up to 28 days. 28 tablet 5 10/30/19 25 Active Problems Problem Noted Date Diagnosed Date Nail abnormalities 05/15/2024 Assessment & Plan (05/15/2024 6:39 PM EDT): Possible msk trauma from nail anlge and shoe, consider insoles Mild erythema at base of nail, will trial topical antifungals. Referral to podiatry. Tinea of nail 05/15/2024 History of sleeve gastrectomy 08/09/2023 Overview (08/09/2023): And paniculectomy with [facility] bariatric surgery clinic Migraine 02/22/2023 Leg pain, left 02/23/2018 08/06/2023 Insomnia 10/20/2017 08/06/2023 Depressive disorder 08/16/2017 08/06/2023 Essential hypertension 05/26/2017 Obstructive sleep apnea syndrome 05/07/2017 Peripheral venous insufficiency 05/07/2017 Recurrent deep vein thrombosis 05/07/2017 Knee pain 05/07/2017 08/06/2023 Morbid obesity 05/07/2017 08/06/2023 Postphlebitic syndrome 05/07/2017 Shoulder pain 05/07/2017 08/06/2023 Encounters Date Type Department Care Team Description 10/02/2024 Refill [facility] [address] [place] [address] Logan Bettencourt MD Chronic pain of both knees 08/30/2024 9:00 AM EST Clinical Support [facility] MED[facility]INE [address] [place] [address] Naheed Mckeon RN Chronic pain of both knees (Primary Dx) 08/30/2024 Refill [facility] [address] [place] [address] Naheed Mckeon RN Chronic pain of both knees 08/30/2024 Travel 08/30/2024 Telephone [facility] [address] [place] [address] Naheed Mckeon RN Recommend HAT DESIGNER Tier 2 08/03/2024 Refill [facility] [address] [place] [address] Logan Bettencourt MD Chronic pain of both knees from Last 3 Months Immunizations Name Administration Dates Next Due Tdap 06/10/2017 Social History Tobacco Use Types Packs/Day Years Used Date Smoking Tobacco: Never Smokeless Tobacco: Never Tobacco Cessation:Counseling Given: Not Answered Alcohol Use Standard Drinks/Week Comments Never 0 [...] Orientation Straight 07/20/2022 10 :18 AM EDT Last Filed Vital Signs Vital Sign Reading Time Taken Comments Blood Pressure 137/90 06/01/2024 9:47 AM EDT Pulse 54 06/01/2024 9:47 AM EDT Temperature 36.5 ??C (97.7 ??F) 12/22/2023 3:47 PM ED T Respiratory Rate 21 06/01/2024 9:47 AM EDT Oxygen Saturation 98% 06/01/2024 9:47 AM EDT Inhaled Oxygen Concentration - - Weight 75.6 kg (166 lb 9.6 oz) 06/01/2024 9:47 A M EDT Height 167.6 cm (5' 6 ) 06/01/2024 9:47 AM EDT Body Mass Index 26.89 06/01/2024 9:47 AM EDT Plan of Treatment Upcoming Encounters Date Type Department Care Team (Late st Contact Info) Description 11/13/2024 1:00 PM EST Office Visit [address] [address] Name, [place] [address] 11/21/2024 9:00 AM EST Clinical Support [address] [address] Naheed Mckeon, RN Health Maintenance Due Date Last Done Comments CT Colonography 1974 Colonoscopy 1974 Colorectal Cancer Screening 1974 FIT DNA/Cologuard 1974 FIT 1974 FOBT 1974 HIV Screening 1974 Sigmoidoscopy 1974 Derm Melanoma Skin Check 01/22/1975 Family Planning (PISQ) 1989 Hepatitis C Screening 1992 Hepatitis B Vaccines (1 of 3 - 19+ 3-dose series) 1993 COVID-19 Vaccine (2023-2 5 season) 2024 02/19/2021, 01/21/2021 Influenza Vaccine (#1) 2024 Pneumococcal Vaccine: 50+ Years (1 of 1 - PCV) 2024 Zoster Vaccines (1 of 2) 2024 Depression Screening 08/09/2024 08/09/2023, 08/09/2023 SDOH Screening 12/07/2024 12/08/2023 Alcohol/Substance Use Screening 05/15/2025 05/15/2024 Tobacco Screening 06/01/2025 06/01/2024 DTaP/Tdap/Td Vaccines (2 - T d or Tdap) 06/10/2027 06/10/2017 Lipid Panel 11/11/2028 11/11/2023, 05/06/2023 RSV Patients and Patients Aged 60 years or older (1 - 1-dose 75+ series) 2049 HIB Vaccines Aged Out No longer eligi ble based on patient's age to complete this topic HPV Vaccines Aged Out No longer eligi ble based on patient's age to complete this topic Hepatitis A Vaccines Aged Out No long er eligible based on patient's age to complete this topic IPV Vaccines Aged Out No longer eligi ble based on patient's age to complete this topic Meningococcal Vaccine Aged Out No tyra amira eligible based on patient's age to complete this topic RSV under 20 months Aged Out No longe r eligible based on patient's age to complete this topic Rotavirus Vaccines Aged Out No longer eligible based on patient's age to complete this topic Procedures Procedure Name Priority Date/Time Associated Diagnosis Comments POCT GRETA-14 URINE DRUG SCREEN Routine 08/30/2024 8:49 AM EST Chronic pain of both knees LIPID PANEL, STANDARD Routine 11/11/2023 8:06 AM EST from Last 3 Months or Most Recently Relevant to Health Maintenance Results * POCT GRETA-14 Urine Drug Screen (08/30/2024 8:49 AM EST) Oxycodone Screen, Urine Positive Urine Urine specimen obtained by clean catch procedure / Unknown 08/30/2024 8:49 AM EST Naheed Cornejo RN - 08/30/2024 8:49 AM EST UTOX cup Lot#[id number] Exp. 06/14/26 Internal Pass Control us Logan Name MD POINT OF CARE TEST ENTER/EDIT OR DERABLES Final Result * (ABNORMAL) Lipid Panel, Standard (11/11/2023 8:06 AM EST) Triglycerides 54 <150 mg/dL [facility] Comment:Desirable Triglyceri de: less than 150 mg/dLBorderline High Triglyceride 150-199 mg/dLHigh Triglyceride: 200-499 mg/dLVery High Triglyceride: greater than or equal to 5OO mg/dL Cholesterol 190 <200 mg/dL [facility] Comment:Desirable Cholestero l: less than 200 mg/dLBorderline High Cholesterol: 200-239 mg/dLHigh Cholesterol: greater than 239 mg/dL LDL Cholesterol Calculated 130(H) <100 mg/dL [facility] Comment:Desirable LDL: less than 100 mg/dLNear Optimal/Above Optimal LDL: 110- 129 mg/dLBorderline High LDL: 130-159 mg/dLHigh LDL: 160-189 mg/dLVery High LDL: greater than or equal to 190 mg/dL HDL Cholesterol 50 >40 mg/dL [facility] Comment:Desirable HDL: great er than 40 mg/dL Note: This HDL assay may give artificially low results in patients with liver disease. 11/11/2023 8:06 AM EST 11/11/2023 8:06 AM EST us Generic External Data Provider LAB BLOOD ORDERAB LES Final Result Performing Organization Address City/State/[facility] Co de Phone Number LABS [address] [place] [address] [phone] from Last 3 Months or Most Recently Relevant to Health Maintenance Insurance [facility] Care Teams Pattern Lease Inspector Relationship Specialty Start Date End Date Name, MD Logan [address] [place] [address] [place] [address] PCP - General Family Medicine 05/05/17
--- OUTSIDE RECORDS SUMMARY | 2024-11-03 09:40 | XMS_ITS | Encounter Summary ---
Author Organization [employer] Address [address] [place] [address] 7 [place] [address] Care Team Providers Care Venetian Blind Installer Name Role Phone Name, Logan ZAPATA Primary Care Provider [phone] Reason for Referral * Consultation (Routine) - Closed Specialty Diagnoses / Procedures Referred By Marlen farmer Referred To Contact Plastic Surgery Diagnoses Basal cell carcinoma (BCC) of skin of nose Kailyn Mcadams MD [address] [place] [address] Phone: tel: fax: [facility] Plastic Surgery [address] [place] [address] Drive [address] [place], [place] Phone: tel: fax: Referral ID Status Reason Start Date Expiration Date V isits Requested Visits Authorized [id number] Closed Specialty Services Required 03/01/2024 03/01/2025 1 1 Encounter Details Date Type Department Care Team (Late st Contact Info) Description 03/01/2024 Orders Only [facility] MED & PEDS [address] [place] [address] Kailyn Mcadams MD [address] [place] [address] Basal cell carcinoma (BCC) of skin of nose (Primary Dx) Social History Tobacco Use Types Packs/Day Years [...] Description 11/13/2024 1:00 PM EST Office Visit [facility] MEDICINE [address] [place] [phone] Name, MD Logan [address] [place] [phone] 11/21/2024 9:00 AM EST Clinical Support [address] [address] Naheed Mckeon, RN Scheduled Referrals Name Type Priority Associated Diagnoses Orde r Schedule Referral to Plastic Surgery Outpatient Referral Routine Basal cell carcinoma (BCC) of skin of nose Expected: 03/01/2024 (Approximate), Expires: 03/01/2025 documented as of this encounter Visit Diagnoses Diagnosis Basal cell carcinoma (BCC) of skin of nose- Primary documented in this encounter Additional Health Concerns Assessment Noted Time PHQ-9 Depression Total Score: 0 08/09/20 23 10:09 AM EST documented as of this encounter Care Teams Venetian Blind Installer Relationship Specialty Start Date End Date Name, MD Logan [address] [place] [address] PCP - General Family Medicine 05/05/17 documented as of this encounter
== END 2024-11-03 09:45 | disposition home or self-care (01) ==
PROVIDERS: PCP Internal Medicine Geriatric Medicine; Visit Provider Physician Assistant Surgical
DX: Z71.3 Dietary counseling and surveillance (principal); Z98.84 Bariatric surgery status
CPT/HCPCS: 99213; G2211

== ENCOUNTER → 2024-11-03 09:15 | Outpatient (BNVA) | payer OTHER, SELFPAY | PROVIDERS: PCP Internal Medicine Geriatric Medicine; Visit Provider Physician Assistant Surgical | DX: G47.30 Sleep apnea, unspecified (principal); I10 Essential (primary) hypertension; K74.00 Hepatic fibrosis, unspecified; K76.0 Fatty (change of) liver, not elsewhere classified; Z71.3 Dietary counseling and surveillance; Z98.84 Bariatric surgery status | CPT/HCPCS: 99212 ==

== ENCOUNTER 2024-11-20 06:11 | Outpatient (REF) | payer OTHER, SELFPAY ==
--- NOTE | ~2024-11-20 | XR_ITS ---
CLINICAL HISTORY: Chronic knee pain, r o DJD 4 view right knee Comparison: CR - KNEE RIGHT 4 VIEWS [id number] - 05/07/17 10:14 EDT Findings: Bones intact. No dislocations. Mild narrowing of the medial knee compartment. Tricompartmental osteophytes are present. No joint effusion. No radiopaque foreign body. IMPRESSION: Mild osteoarthritis of the right knee, most advanced within the medial knee compartment. This document has been electronically signed by: Jeri Park MD on 11/21/2024 16:32:46
--- NOTE | ~2024-11-20 | XR_ITS ---
CLINICAL HISTORY: Chronic knee pain, rule out DJD 4 view left knee Comparison: CR - KNEE LEFT 4 VIEWS [id number] - 05/07/17 10:13 EDT Findings: Bones intact. No dislocations. Mild narrowing of the medial knee compartment. Tricompartmental osteophytes are present. No joint effusion. No radiopaque foreign body. IMPRESSION: Mild osteoarthritis of the left knee, most advanced within the medial compartment, similar to the prior study. This document has been electronically signed by: Jeri Park MD on 11/21/2024 16:30:25
--- OUTSIDE RECORDS SUMMARY | 2024-11-20 06:14 | XMS_ITS | Encounter Summary ---
Author Organization [employer] Address [address] [facility] 7t [place] [address] Care Team Providers Care Beverage Sales Consultant Name Role Phone Name, Logan ZAPATA Primary Care Provider [phone] Reason for Visit * Reason Onset Date Comments Nurse Triage 12/22/2023 Encounter Details Date Type Department Care Team ([facility] st Contact Info) Description 12/22/2023 Telephone [facility] [address] [place] [address] [phone] Name, MD Logan [address] [place] [address] Nurse Triage Social History Tobacco Use Types [...] 12/22/2023 3:24 PM EDT Triage call with [place] Certified Phlebotomist ID [id number] Pt reports a sore throat which started yesterday. Pt reports neg for fever, pain with swallowing, neg for earache but, jaw hurts when open and close . Pt is advised to come to [facility] today for provider to see Pt. Pt [...] The caller accepted this outcome Patient speaks azeri documented in this encounter Plan of Treatment Upcoming Encounters Date Type Department Care Team (Late st Contact Info) Description 11/21/2024 9:00 AM EST Clinical Support [address] [address] Naheed Mckeon RN 02/13/2025 9:15 AM EDT Office Visit [address] [address] Name, MD Logan [address] [place] [address] documented as of this encounter Visit Diagnoses Not on filedocumented in this encounter Additional Health Concerns Assessment Noted Time PHQ-9 Depression Total Score: 0 08/09/20 23 10:09 AM EST documented as of this encounter Care Teams Beverage Sales Consultant Relationship Specialty Start Date End Date Name, MD Logan [address] [place] [address] PCP - General Family Medicine 05/05/17 documented as of this encounter
--- OUTSIDE RECORDS SUMMARY | 2024-11-20 06:14 | XMS_ITS | Encounter Summary ---
Author Organization [employer] Address [address] [facility] 7t [place] [address] Care Team Providers Care Computer Training Specialist Name Role Phone Name, Logan ZAPATA Primary Care Provider [phone] Reason for Visit * Reason Comments Follow-up Encounter Details Date Type Department Care Team ([facility] st Contact Info) Description 11/13/2024 1:00 PM EST Office Visit [facility]INE [address] [place] [address] [phone] Name, MD Logan [address] [place] [address] Chronic pain of both knees (Primary Dx); Vaccine refused by patient Social History Tobacco Use Types Packs/Day Years [...] What is your housing situation today? I do not have housing (Staying with others, in a hotel, in a chcf, living outside on the street, on a beach, in a car, or in a park 11/13/[address] you li ve. Do you have problems with any of the following? Lead [place] or [place] 11/13/2024 Food Insecurity Answer Date Recorded Within the past 12 months, y ou worried that your food would run out before you got money to buy more: Often true 11/13/2024 Within the past 12 months,th e food you bought just didn't last and you didn't have enough money to get more: Often true Transportation Answer Date Recorded In the past [...] Recorded Patient Health Questionnaire-2 Score 0 08/09/2023 Internet Access Answer Date Recorded Internet Access Q1 Yes 11/13/2024 Internet Access Q2 Not on file 11/13/2024 Sex and Gender Information Value Date Recorded Sex Assigned at Male 07/20/2022 10:18 AM EDT Legal Sex Male 10:18 AM EDT Gender Identity Male 07/20/2022 10:18 AM EDT Sexual Orientation Straight 07/20/2022 10 :18 AM EDT documented as of this encounter Last Filed Vital Signs Vital Sign Reading Time Taken Comments Blood Pressure 129/84 11/13/2024 1:02 PM EST Pulse 78 11/13/2024 1:02 PM EST Temperature 36.3 ??C (97.3 ??F) 11/13/2024 1:02 PM ES T Respiratory Rate 16 11/13/2024 1:02 PM EST Oxygen Saturation 98% 11/13/2024 1:02 PM EST Inhaled Oxygen Concentration - - Weight 72.6 kg (160 lb) 11/13/2024 1:02 PM EST Height - - Body Mass Index 25.82 06/01/2024 9:47 AM EDT documented in this encounter Progress Notes * Logan Bettencourt MD - 11/13/2024 1:00 PM EST Subjective Patient ID: Devon Baker is a 49 y.o. male who presents for Follow-up. Devon is doing well. He is maintaining his weight loss after bariatric surgery. He is using his vitamin supplements as prescribed. He denies significant heartburn. No nausea or vomiting. Today he complains of chronic leg pain. Today he is describing bilateral knee pain. He does not have any swelling. No recent trauma. The patient has pain with active and passive range of motion. The patient describes difficulty walking for more than a block because of the pain. The pain has persisted even after significant weight loss. Review of Systems Constitutional: Negative for chills, fatigue and fever. HENT: Negative for sore throat. Respiratory: Negative for cough, chest tightness and shortness of breath. Cardiovascular: Negative for chest pain, palpitations and leg swelling. Gastrointestinal: Negative for abdominal pain and blood in stool. Blood pressure 129/84, pulse 78, temperature 97.3 ??F (36.3 ??C), temperature source Temporal, resp. rate 16, weight 160 lb (72.6 kg), SpO2 98%. Objective Physical Exam Constitutional: Appearance: Normal appearance. Cardiovascular: Rate and Rhythm: Normal rate and regular rhythm. Heart sounds: No murmur heard. Pulmonary: Effort: Pulmonary effort is normal. No respiratory distress. Breath sounds: No wheezing, rhonchi or rales. Abdominal: Palpations: Abdomen is soft. Tenderness: There is no abdominal tenderness. Musculoskeletal: Right knee: No swelling. Decreased range of motion. Tenderness present. Left knee: No swelling. Decreased range of motion. Tenderness present. Right lower leg: No edema. Left lower leg: No edema. Neurological: Mental Status: He is alert. Assessment/Plan Diagnoses and all orders for this visit: Chronic pain of both knees Comments: I suspect knee DJD. Possibly related to the patient obesity prior to bariatric surgery. I recommended to avoid the use of NSAIDs given his bariatric surgery. I recommended as needed Tylenol. I recommended to use Percocet 5/325 sparingly for severe pain only. I recommended to check knee x-ray. Further recommendation based on the results. Today he told me he would like to avoid have any invasive intervention of the knees. He does not like the idea of steroid injections in the knees. Orders: - XR Knee 4+ Views Right; Future - XR Knee 4+ Views Left; Future Vaccine refused by patient Comments: He refused any vaccination today. I recommended to mask in public in crowded places. documented in this encounter Plan of Treatment Upcoming Encounters Date Type Department Care Team (Late st Contact Info) Description 11/21/2024 9:00 AM EST Clinical Support [address] [address] Naheed Mckeon RN 02/13/2025 9:15 AM EDT Office Visit [facility] [address] [place] [address] Name, MD Logan [address] [place] [address] Scheduled Orders Name Type Priority Associated Diagnoses Orde r Schedule XR Knee 4+ Views Right Imaging Routine Chronic pain of both knees Expected: 11/13/2024, Expires: 11/13/2025 XR Knee 4+ Views Left Imaging Routine Chronic pain of both knees Expected: 11/13/2024, Expires: 11/13/2025 documented as of this encounter Visit Diagnoses Diagnosis Chronic pain of both knees- Primary Vaccine refused by patient documented in this encounter Additional Health Concerns Assessment Noted Time PHQ-9 Depression Total Score: 0 08/09/20 23 10:09 AM EST documented as of this encounter Care Teams Computer Training Specialist Relationship Specialty Start Date End Date Name, MD Logan [address] [place] [address] PCP - General Family Medicine 05/05/17 documented as of this encounter
--- OUTSIDE RECORDS SUMMARY | 2024-11-20 06:14 | XMS_ITS | Encounter Summary ---
Author Organization [employer] Address [address] [place] [address] 7 [place] [address] Care Team Providers Care Hyster Machine Operator Name Role Phone Name, Logan ZAPATA Primary Care Provider Reason for Referral * Consultation (Routine) - Closed Specialty Diagnoses / Procedures Referred By Marlen farmer Referred To Contact Plastic Surgery Diagnoses Basal cell carcinoma (BCC) of skin of nose Kailyn Mcadams MD [address] [place] [address] Phone: tel: fax: [facility] Plastic Surgery [address] [place] [address] Drive [address] [place], [place] Phone: tel: fax: Referral ID Status Reason Start Date Expiration Date V isits Requested Visits Authorized [id number] Closed Specialty Services Required 03/01/2024 03/01/2025 1 1 Encounter Details Date Type Department Care Team (Late st Contact Info) Description 03/01/2024 Orders Only [facility] CHC MED & PEDS [address] [place] [address] Kailyn Mcadams MD [address] [place] [address] Basal cell carcinoma (BCC) of skin of [...] Description 11/21/2024 9:00 AM EST Clinical Support [facility] MEDICINE [address] [place] [address] Naheed Mckeon RN 02/13/2025 9:15 AM EDT Office Visit [facility] MEDICINE [address] [place] [phone] Name, MD Logan [address] [place] [phone] Scheduled Referrals Name Type Priority Associated Diagnoses [...] documented as of this encounter Care Teams Hyster Machine Operator Relationship Specialty Start Date End Date Name, MD Logan [address] [place] [address] PCP - General Family Medicine 05/05/17 documented as of this encounter
--- OUTSIDE RECORDS SUMMARY | 2024-11-20 06:14 | XMS_ITS | Clinical Summary ---
Author Organization [employer] Address [address] [place] [address] 7t [place] [address] Care Team Providers Care Animal Cruelty Investigator Name Role Phone Name, Logan ZAPATA Primary Care Provider [phone] Allergies Active Allergy Reactions Criticality Noted Date [...] up to 28 days. 28 tablet 5 12/06/19 25 Active oxyCODONE-aceta minophen (Percocet) 5-325 MG tabletIndicatio [...] gastrectomy 08/09/2023 Overview (08/09/2023): And paniculectomy with [facility] Migraine 02/22/2023 Leg pain, left 02/23/2018 08/06/2023 Insomnia 10/20/2017 08/06/2023 Depressive disorder 08/16/2017 08/06/2023 Essential hypertension 05/26/2017 Obstructive sleep apnea syndrome 05/07/2017 Peripheral venous insufficiency 05/07/2017 Recurrent deep vein thrombosis 05/07/2017 Knee pain 05/07/2017 08/06/2023 Morbid obesity 05/07/2017 08/06/2023 Postphlebitic syndrome 05/07/2017 Shoulder pain 05/07/2017 08/06/2023 Encounters Date Type Department Care Team Description 11/13/2024 1:00 PM EST Office Visit [facility] [place] [address] Logan Bettencourt MD Chronic pain of both knees (Primary Dx); Vaccine refused by patient 11/07/2024 Refill [facility] [place] [address] Logan Bettencourt MD Chronic pain of both knees (Primary Dx) 10/02/2024 Refill [facility] [place] [address] Logan Bettencourt MD Chronic pain of both knees 08/30/2024 9:00 AM EST Clinical Support [facility] [place] [address] Naheed Mckeon, release specialist pain of both knees (Primary Dx) 08/30/2024 Refill [facility] [address] [place] [address] Naheed Mckeon release specialist pain of both knees 08/30/2024 Travel 08/30/2024 Telephone [facility] [address] [place] [address] Naheed Mckeon, RN Recommend RIDING INSTRUCTOR Tier 2 from Last 3 Months Immunizations Name Administration [...] with others, in a hotel, in a fci, living outside on the street, on a beach, in a car, or in a park 11/13/[address] you li ve. Do you have problems with any of the following? Lead [place] or Pipes 11/13/2024 Food Insecurity Answer Date [...] (160 lb) 11/13/2024 1:02 PM EST Height 167.6 cm (5' 6 ) 06/01/2024 9:47 AM EDT Body Mass Index 25.82 06/01/2024 9:47 AM EDT Plan of Treatment Upcoming Encounters Date Type Department Care Team (Late st Contact Info) Description 11/21/2024 9:00 AM EST Clinical Support [facility] [address] [place] [address] Naheed Mckeon RN 02/13/2025 9:15 AM EDT Office Visit [facility] [address] [place] [address] Name, MD Logan [address] [place] [address] Health Maintenance Due Date Last Done Comments [...] 2) 2024 Depression Screening 08/09/2024 08/09/2023, 08/09/2023 Alcohol/Substance Use Screening 05/15/2025 05/15/2024 Tobacco Screening 06/01/2025 06/01/2024 SDOH Screening 11/13/2025 11/13/2024 DTaP/Tdap/Td Vaccines (2 - T d or [...] - 08/30/2024 8:49 AM EST UTOX cup Lot#[id number] Exp. 06/14/26 Internal Pass Control us Logan Name POINT OF CARE TEST ENTER/EDIT OR DERABLES Final Result * (ABNORMAL) Lipid Panel, Standard (11/11/2023 8:06 AM EST) Triglycerides 54 <150 mg/dL [facility] Comment:Desirable Triglyceri de: less than 150 mg/dLBorderline High Triglyceride 150-199 mg/dLHigh Triglyceride: 200-499 mg/dLVery High Triglyceride: greater than or equal to 5OO mg/dL Cholesterol 190 <200 mg/dL [facility] Comment:Desirable Cholestero l: less than 200 mg/dLBorderline High Cholesterol: 200-239 mg/dLHigh Cholesterol: greater than 239 mg/dL LDL Cholesterol Calculated 130(H) <100 mg/dL [facility] Comment:Desirable LDL: less than 100 mg/dLNear Optimal/Above Optimal LDL: 110- 129 mg/dLBorderline High LDL: 130-159 mg/dLHigh LDL: 160-189 mg/dLVery High LDL: greater than or equal to 190 mg/dL HDL Cholesterol 50 >40 mg/dL [facility] Comment:Desirable HDL: great er than 40 mg/dL Note: This HDL assay may give artificially low results in patients with liver disease. 11/11/2023 8:06 AM EST 11/11/2023 8:06 AM EST us Generic External Data Provider LAB BLOOD ORDERAB LES Final Result [facility] [address] [place] [address] [phone] [phone] from Last 3 Months or Most Recently Relevant to Health Maintenance Insurance [facility] [place] [address] [address] Care Teams Animal Cruelty Investigator Relationship Specialty Start Date End Date Name, MD Loagn [address] [place] [address] PCP - General Family Medicine 05/05/17
--- OUTSIDE RECORDS SUMMARY | 2024-11-20 06:14 | XMS_ITS | Encounter Summary ---
Author Organization [employer] Address [address] [facility] 7t [place] [address] Care Team Providers Care Interventional Physician Name Role Phone Name, Logan ZAPATA Primary Care Provider [phone] Reason for Visit * Reason Onset Date Comments Med Refill 04/06/2024 Encounter Details Date Type Department Care Team ([facility] Contact Info) Description 04/06/2024 Telephone [facility] MED[facility] [address] [place] [address] [phone] Name, MD Logan [address] [place] [address] Med Refill Social History Tobacco Use Types [...] 28 days supply, qty - 28. At [facility] at [facility]. [facility] for approval. * Telephone Encounter - Avni Martinez - 04/06/2024 2:31 PM EDT TC from pt requesting medication refill. Medications needing refill : oxyCODONE-acetaminophen (Percocet) 5-325 MG tablet To be sent to: [facility]/pharmacy #[id number] - [place] [address] AT [facility] documented in this encounter Plan of Treatment Upcoming Encounters Date Type Department Care Team (Late st Contact Info) Description 11/21/2024 9:00 AM EST Clinical Support [facility] [address] [place] [address] Naheed Mckeon RN 02/13/2025 9:15 AM EDT Office Visit [facility] [address] [place] [address] Name, MD Logan [address] [place] [address] documented as of this encounter Visit Diagnoses Not on filedocumented in this encounter Additional Health Concerns Assessment Noted Time PHQ-9 Depression Total Score: 0 08/09/20 23 10:09 AM EST documented as of this encounter Care Teams Interventional Physician Relationship Specialty Start Date End Date Name, MD Logan [address] [place] [address] PCP - General Family Medicine 05/05/17 documented as of this encounter
--- OUTSIDE RECORDS SUMMARY | 2024-11-20 06:14 | XMS_ITS | Encounter Summary ---
Author Organization [employer] Address [address] 7t [place] [address] Care Team Providers Care Javascript Software Engineer Name Role Phone Name, Logan ZAPATA Primary Care Provider [phone] Encounter Details Date Type Department Care Team ([facility] st Contact Info) Description 03/01/2024 Orders Only [facility] MED & PEDS [address] [place] [address] ProviderShin MD Social History Tobacco Use Types [...] Description 11/21/2024 9:00 AM EST Clinical Support [address] [address] Naheed Mckeon RN 02/13/2025 9:15 AM EDT Office Visit [address] [address] Name, MD Logan [address] [place] [address] documented as of this encounter Procedures Procedure [...] documented as of this encounter Care Teams Javascript Software Engineer Relationship Specialty Start Date End Date Name, MD Logan [address] [place] [address] PCP - General Family Medicine 05/05/17 documented as of this encounter
--- OUTSIDE RECORDS SUMMARY | 2024-11-20 06:14 | XMS_ITS | Encounter Summary ---
Author Organization [employer] Address [address] [facility] 7t [place] [address] Care Team Providers Care Director Women Name Role Phone Name, Logan ZAPATA Primary Care Provider [phone] Reason for Visit * Reason Onset Date Comments Med Refill 11/07/2024 Encounter Details Date Type Department Care Team ([facility] st Contact Info) Description 11/07/2024 Refill [facility] [address] [place], [place] [phone] Name, MD Logan [address] [place] [address] Chronic pain of both knees (Primary Dx) Social History Tobacco Use Types [...] encounter Miscellaneous Notes * Telephone Encounter - Tabitha Zelaya - 11/07/2024 10:25 AM EST TC from pt requesting medication refill. Medications needing refill : oxyCODONE-acetaminophen (Percocet) 5-325 MG tablet To be sent to: [facility]/pharmacy #[id number] - [place], [address] AT [facility] documented in this encounter Plan of Treatment Upcoming Encounters Date Type Department Care Team (Late st Contact Info) Description 11/21/2024 9:00 AM EST Clinical Support [facility] MEDICINE [address] [place] [address] Naheed Mckeon RN 02/13/2025 9:15 AM EDT Office Visit [facility] [address] [place] [address] Name, MD Logan [address] [place] [address] documented as of this encounter Visit Diagnoses Diagnosis Chronic pain of both knees- Primary documented in this encounter Additional Health Concerns Assessment Noted Time PHQ-9 Depression Total Score: 0 08/09/20 10:09 AM EST documented as of this encounter Care Teams Director Women Relationship Specialty Start Date End Date Name, MD Logan [address] [place] [address] PCP - General Family Medicine 05/05/17 documented as of this encounter
== END 2024-11-20 06:12 | disposition home or self-care (01) ==
LOC: HO.XRAY 06:11
PROVIDERS: PCP Internal Medicine Geriatric Medicine; Visit Provider Internal Medicine Geriatric Medicine
DX: M25.561 Pain in right knee (principal); M25.562 Pain in left knee; G89.29 Other chronic pain
CPT/HCPCS: 73564

== ENCOUNTER → 2024-11-20 06:15 | Outpatient (BNV) | payer OTHER, SELFPAY | PROVIDERS: PCP Internal Medicine Geriatric Medicine; Visit Provider Radiology Diagnostic Radiology | DX: M25.561 Pain in right knee (principal); M25.562 Pain in left knee | CPT/HCPCS: 73564 ==

== ENCOUNTER 2025-06-15 07:46 | Outpatient (AMB) | payer OTHER, SELFPAY ==
--- OUTSIDE RECORDS SUMMARY | 2025-06-15 07:50 | XMS_ITS | Encounter Summary ---
Author Organization [employer] Address [address] [facility] 7t h Floor [place] [id number] Care Team Providers Care Dyeing Machine Tender Name Role Phone Name, Logan ZAPATA Primary Care Provider [phone] Reason for Visit * Reason Onset Date Comments Med Refill 04/06/2024 Encounter Details Date Type Department Care Team ([facility] st Contact Info) Description 04/06/[address] [facility] MEDICINE [address] [place] [address] [phone] Name, MD Logan [address] [place] [address] Med Refill Social History Tobacco Use Types [...] 28 days supply, qty - 28. At [facility] at [facility]. [facility] for approval. * Telephone Encounter - Avni Martinez - 04/06/2024 2:31 PM EDT TC from pt requesting medication refill. Medications needing refill : oxyCODONE-acetaminophen (Percocet) 5-325 MG tablet To be sent to: [facility]/pharmacy #[id number] - [address] AT [facility] documented in this encounter Plan of Treatment Upcoming Encounters Date Type Department Care Team (Late st Contact Info) Description 08/27/2025 9:00 AM EST Clinical Support [facility] MEDICINE [address] [place] [address] Naheed Mckeon RN documented as of this encounter Visit Diagnoses Not on filedocumented in this encounter Additional Health Concerns Assessment Noted Time PHQ-9 Depression Total Score: 0 08/09/20 23 10:09 AM EST documented as of this encounter Care Teams Dyeing Machine Tender Relationship Specialty Start Date End Date Name, MD Logan [address] [place] [address] PCP - General Family Medicine 05/05/17 documented as of this encounter
--- OUTSIDE RECORDS SUMMARY | 2025-06-15 07:50 | XMS_ITS | Encounter Summary ---
Author Organization [employer] Address [address] [facility] 7t h Floor [place] [phone] Care Team Providers Care Bi Data Architect Name Role Phone Name, Logan ZAPATA Primary Care Provider [phone] Reason for Visit * Reason Onset Date Comments Nurse Triage 12/22/2023 Encounter Details Date Type Department Care Team ([facility] st Contact Info) Description 12/22/[address] [facility] MED[facility] [address] [place], [place] [phone] Name, MD Logan [address] [place] [address] Nurse Triage Social History Tobacco Use Types [...] 12/22/2023 3:24 PM EDT Triage call with [employer] Special Client Bus Driver ID [id number] Pt reports a sore throat which started yesterday. Pt reports neg for fever, pain with swallowing, neg for earache but, jaw hurts when open and close . Pt is advised to come to [facility] today for provider to see Pt. [...] The caller accepted this outcome Patient speaks korean documented in this encounter Plan of Treatment Upcoming Encounters Date Type Department Care Team (Late st Contact Info) Description 08/27/2025 9:00 AM EST Clinical Support [facility] MEDICINE [address] [place] [address] Naheed Mckeon RN documented as of this encounter Visit Diagnoses Not on filedocumented in this encounter Additional Health Concerns Assessment Noted Time PHQ-9 Depression Total Score: 0 08/09/20 23 10:09 AM EST documented as of this encounter Care Teams Bi Data Architect Relationship Specialty Start Date End Date Name, MD Logan [address] [place] [address] PCP - General Family Medicine 05/05/17 documented as of this encounter
--- OUTSIDE RECORDS SUMMARY | 2025-06-15 07:50 | XMS_ITS | Encounter Summary ---
Author Organization [employer] Address [address] [facility] 7t h Floor [place] [phone] Care Team Providers Care Line Producer Name Role Phone Name, Logan ZAPATA Primary Care Provider [phone] Reason for Visit * Reason Onset Date Comments referral status 03/02/2023 Encounter Details Date Type Department Care Team ([facility] st Contact Info) Description 03/02/[address] [facility] MEDICINE [address] [place] [address] [phone] Name, MD Logan [address] [place] [address] referral status Social History Tobacco Use Types [...] 08/27/2025 9:00 AM EST Clinical Support [facility] MEDICINE [address] [place] [address] Naheed Mckeon, RN documented as of this encounter Visit Diagnoses Not on filedocumented in this encounter Care Teams Line Producer Relationship Specialty Start Date End Date Name, MD Logan [address] [place] [address] PCP - General Family Medicine 05/05/17 documented as of this encounter
--- OUTSIDE RECORDS SUMMARY | 2025-06-15 07:50 | XMS_ITS | Patient Health Record ---
Author Organization [facility] Address [address] [place] [address] Care Team Providers Care Automotive Professional Name Role Phone Juwan Fishman M.D. Primary Care Provider Deborah getachew Del Liriano Unavailable [phone] Allergies Allergen (clinical drug ingredient) Drug/Non Drug Allergy documented on EMR Reaction Allergy Type Onset Date Status morphine Morphine Sulfate Unknown Drug Allergy Active Reason For Referral No Information Medications Medication SIG (Take, Route, Frequency, Duration) Notes Start Date End Date Status Warfarin Sodium 5 MG TAKE 2 TABLETS OR A S DIRECTED ONCE A DAY Oral for 30 Not-Taking Lovenox 80 MG/0.8ML 0.3 ml Subcutaneous every 12 hrs Active Social History Tobacco Use: Social History Observation Description Date Details (start date - stop date) Never Smoker NA - NA Tobacco Use/Smoking Question Answer Notes Patient is a nonsmoker Alcohol Screen Question Answer Notes Did you have a drink contain ing alcohol in the past year? Yes How often did you have a dri nk containing alcohol in the past year? Monthly or less (1 point) How many drinks did you have on a typical day when you were drinking in the past year? 1 or 2 drinks (0 point) How often did you have 6 or more drinks on one occasion in the past year? Never (0 point) Points 1 Interpretation Negative Section Notes: Nonsmoker; no sig. 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) Active confirmed Plan Of Treatment Future Test Test Name Order Date UPPER GI ENDOSCOPY 03/02/2017 Insurance Providers Payer Name Payer Address Payer Phone Subscriber Number Group Number Insured Name Patient Relationship to Insured Coverage Start Date Coverage End Date [facility] [address] [address] [place], [place] [id number] MANPREET MONTERO Self - patient is the insured Medical (General) History Medical History History ICD Code Denies ME,DM,CVA,Lung disease,renal dise ase LE DVT--in [facility] in Jan, 2017--started on Coumadin Sleep apnea--waiting for the CPAP HTN Chronic LE edema Surgical History Surgery Date(Month/Year) Appendectomy Hernia repair--in [place] > 10 yrs ago Vein ligation--left leg
--- OUTSIDE RECORDS SUMMARY | 2025-06-15 07:50 | XMS_ITS | Encounter Summary ---
Author Organization [employer] Address [address] [place] [address] 7 [place] [address] Care Team Providers Care Traffic Control Technician Name Role Phone Name, Logan ZAPATA Primary Care Provider [phone] Reason for Referral * Consultation (Routine) - Closed Specialty Diagnoses / Procedures Referred By Marlen farmer Referred To Contact Plastic Surgery Diagnoses Basal cell carcinoma (BCC) of skin of nose Kailyn Mcadams MD [address] [place] [address] Phone: tel: fax: [facility] [address] [place] [address] Drive [address] [place], [place] Phone: tel: fax: Referral ID Status Reason Start Date Expiration Date V isits Requested Visits Authorized [id number] Closed Specialty Services Required 03/01/2024 03/01/2025 1 1 Encounter Details Date Type Department Care Team (Late st Contact Info) Description 03/01/2024 Orders Only [facility] MED & PEDS [address] [place] [address] Kailyn Mcadams MD [address] [place] [address] Basal cell carcinoma (BCC) of skin of [...] Description 08/27/2025 9:00 AM EST Clinical Support [address] [address] Naheed Mckeon, FLOR Scheduled Referrals Name Type Priority Associated Diagnoses [...] documented as of this encounter Care Teams Traffic Control Technician Relationship Specialty Start Date End Date Name, MD Logan [address] [place] [address] PCP - General Family Medicine 05/05/17 documented as of this encounter
--- OUTSIDE RECORDS SUMMARY | 2025-06-15 07:50 | XMS_ITS | Encounter Summary ---
Author Organization [employer] Address [address] [facility] [address] 7t [place] [address] Care Team Providers Care Outsoles Channel Opener Name Role Phone Name, Logan ZAPATA Primary Care Provider [phone] Encounter Details Date Type Department Care Team (Late st Contact Info) Description 03/01/2024 Orders Only [facility] MED & PEDS [address] [place], [place] [phone] Provider, MD Shin Social History Tobacco Use Types Packs/Day Years [...] Description 08/27/2025 9:00 AM EST Clinical Support [facility] MEDICINE [address] [place] [address] Naheed Mckeon RN documented as of this encounter Procedures Procedure [...] documented as of this encounter Care Teams Outsoles Channel Opener Relationship Specialty Start Date End Date Name, MD Logan [address] [place] [address] PCP - General Family Medicine 05/05/17 documented as of this encounter
--- OUTSIDE RECORDS SUMMARY | 2025-06-15 07:50 | XMS_ITS | Clinical Summary ---
Author Organization [employer] Address [address] [facility] 7t [place] [address] Care Team Providers Care Cutting Torch Operator Name Role Phone Name, Logan ZAPATA Primary Care Provider Allergies Active Allergy Reactions Criticality Noted Date Comments Morphine 05/26/2017 Other reaction(s): Rash Medications Glycerin-Hypro mellose-PEG 400 (Dry Eye Relief Drops) 0.2-0.2-1 % solutionIndica tions:Dry eye Administer 1 drop into each eye up to four times daily 30 mL 3 02/23/20 23 Active ketotifen (Zaditor) 0.025 % ophthalmic solutionIndica tions:Dry eye Administer 1 drop into both eyes 2 times daily. 10 mL 3 02/23/20 23 Active naloxone (Narcan) 4 mg/0.1 mL nasal sprayIndicatio ns:Chronic pain of both knees Administer 1 spray (4 mg) into affected nostril(s) if needed for opioid reversal. 2 each 2 07/12/20 24 Active oxyCODONE-acet aminophen (Percocet) 5-325 MG tabletIndicati ons:Chronic pain of both knees Take 1 tablet by mouth if needed each day for severe pain for up to 28 days. 28 tablet 06/11/20 25 025 Active thiamine (Vitamin B-1) 100 MG tablet Take 1 tablet (100 mg) by mouth Once per day. 30 tablet 06/06/20 24 025 oxyCODONE-acet aminophen (Percocet) 5-325 MG tabletIndicati ons:Chronic pain of both knees Take 1 tablet by mouth if needed each day for severe pain for up to 28 days. 28 tablet 08/21/ 025 Discontinued(Re order (will not trigger notification to Pharmacy)) Active Problems Problem Noted Date Diagnosed Date Long-term current use of opiate analgesic 2024 Nail abnormalities 05/15/2024 Assessment & Plan (05/15/2024 6:39 PM EDT): Possible msk trauma from nail anlge and shoe, consider insoles Mild erythema at base of nail, will trial topical antifungals. Referral to podiatry. Tinea of nail 05/15/2024 History of sleeve gastrectomy 08/09/2023 Overview (08/09/2023): And paniculectomy with [facility] [place] [place] [facility] Migraine 02/22/2023 Leg pain, left 02/23/2018 08/06/2023 Insomnia 10/20/2017 08/06/2023 Depressive disorder 08/16/2017 08/06/2023 Essential hypertension 05/26/2017 Obstructive sleep apnea syndrome 05/07/2017 Peripheral venous insufficiency 05/07/2017 Recurrent deep vein thrombosis 05/07/2017 Knee pain 05/07/2017 08/06/2023 Morbid obesity 05/07/2017 08/06/2023 Postphlebitic syndrome 05/07/2017 Shoulder pain 05/07/2017 08/06/2023 Encounters Date Type Department Care Team Description 06/11/2025 Refill [facility] [address] [facility] [place] [address] NameLogan MD Chronic pain of both knees 05/28/2025 9:00 AM EDT Clinical Support [facility] [address] [facility] [place] [address] Naheed Mckeon, RN Long-term current use of opiate analgesic (Primary Dx) 05/28/2025 Telephone [facility] [address] [place] [address] Naheed Mckeon, RN CHAIN HOOKER Agreement renewed today 05/28/2025 Travel 05/21/2025 Travel 05/10/2025 Refill [facility] [address] [facility] [place] [address] Logan Bettencourt MD Chronic pain of both knees 04/09/2025 Refill [facility] [address] [place] [address] Name, MD Logan Chronic pain of both knees 03/30/2025 9:45 AM EDT Office Visit [facility] [address] [place] [address] [place] OD Regular astigmatism, bilateral (Primary Dx); Dry eyes, bilateral; Cortical cataract of both eyes 03/30/2025 Travel from Last 3 Months Immunizations Immunization Administration Dates Next Due Tdap 06/10/2017 Social History Tobacco Use Types Packs/Day Years Used Date Smoking Tobacco: Never Smokeless Tobacco: Never Tobacco Cessation:Counseling Given: Not Answered Alcohol Use Standard Drinks/Week Comments Never 0 (1 standard drink = 0.6 oz pur e alcohol) Depression Answer Date Recorded Patient Health Questionnaire-9 Score 15 02/13/2025 Patient Health Questionnaire-9 Score 15 02/13/2025 Last PHQ-9: Questionnaire Data Not on file 0 02/13/2025 Housing Stability Answer Date Recorded What is your housing situation today? I do not have housing (Staying with others, in a hotel, in a prison, living outside on the street, on a beach, in a car, or in a park 11/13/[address] you li ve. Do you have problems with any of the following? Lead [place] or Pipes 11/13/2024 Food Insecurity Answer Date [...] Answer Date Recorded Patient Health Questionnaire-2 Score 3 02/13/2025 Internet Access Answer Date Recorded Internet Access [...] Sign Reading Time Taken Comments Blood Pressure 126/85 02/13/2025 9:04 AM EDT Pulse 75 02/13/2025 8:56 AM EDT Temperature 36.9 C (98.4 F) 02/13/2025 8:56 AM EDT Respiratory Rate 14 02/13/2025 8:56 AM EDT Oxygen Saturation 98% 02/13/2025 8:56 AM EDT Inhaled Oxygen Concentration - - Weight 75.3 kg (166 lb) 02/13/2025 8:56 AM EDT Height 167.6 cm (5' 6 ) 02/13/2025 8:56 AM EDT Body Mass Index 26.79 02/13/2025 8:56 AM EDT Plan of Treatment Upcoming Encounters Date Type Department Care Team (Late st Contact Info) Description 08/27/2025 9:00 AM EST Clinical Support [facility] [address] [place] [address] Naheed Mckeon, RN Health Maintenance Due Date Last Done Comments CT Colonography 1974 Colonoscopy 1974 Colorectal Cancer Screening 1974 FIT DNA/Cologuard 1974 FIT 1974 FOBT 1974 HIV Screening 1974 Sigmoidoscopy 1974 Derm Melanoma Skin Check 01/22/1975 Alcohol/Substance Use Screening 1986 Family Planning (PISQ) 1989 Hepatitis C Screening 1992 Hepatitis B Vaccines (1 of 3 - 19+ 3-dose series) 1993 Pneumococcal Vaccine: 50+ Years (1 of 1 - PCV) 2024 Zoster Vaccines (1 of 2) 2024 COVID-19 Vaccine (3 - 2024-2 6 season) 2025 02/19/2021, 01/21/2021 Influenza Vaccine (#1) 2025 Depression Monitoring 08/16/2025 02/13/2025 , 02/13/2025 SDOH Screening 11/13/2025 11/13/2024 Tobacco Screening 03/30/2026 03/30/2025 Disability Screening 05/21/2026 05/21/2025 DTaP/Tdap/Td Vaccines (2 - T d or [...] patient's age to complete this topic Meningococcal B Vaccine Aged Out No l onger eligible based on patient's age to complete [...] Comments POCT GRETA-14 URINE DRUG SCREEN Routine 05/28/2025 8:49 AM EDT Long-term current use of opiate analgesic LIPID PANEL, STANDARD Routine 11/11/2023 8:06 AM EST from Last 3 Months or Most Recently Relevant to Health Maintenance Results * POCT GRETA-14 Urine Drug Screen (05/28/2025 8:49 AM EDT) THC Negative Negative Cocaine Screen, Urine Negative Negative Opiate Screen, Urine Negative Negative Methamphetamine Screen Urine Negative Negative Amphetamine Screen, Urine Negative Negative Benzodiazepines Screen, Urine Negative Negative Barbiturate Screen, Urine Negative Negative Methadone Screen, Urine Negative Negative Buprenophine Screen, Urine Negative Negative TCA, Urine Negative Negative MDMA Urine Negative Negative ng/mL Oxycodone Screen, Urine Positive Negative Phencyclidine (PCP), Urine Negative Negative Propoxyphene, Urine Negative Negative Fentanyl, Urine Negative Negative Urine Urine specimen obtained by clean catch procedure / Unknown 05/28/2025 8:49 AM EDT Narrative Naheed Mckeon RN - 05/28/2025 8:49 AM EDT UTOX cup Lot#[id number] Exp. 06/26/26 Internal Pass Control us Logan Name POINT OF CARE TEST ENTER/EDIT OR DERABLES Final Result * (ABNORMAL) Lipid Panel, Standard (11/11/2023 8:06 AM EST) Triglycerides 54 <150 mg/dL [facility] Comment:Desirable Triglyceri de: less than 150 mg/dLBorderline High Triglyceride 150-199 mg/dLHigh Triglyceride: 200-499 mg/dLVery High Triglyceride: greater than or equal to 5OO mg/dL Cholesterol 190 <200 mg/dL [facility] Comment:Desirable Cholestero l: less than 200 mg/dLBorderline High Cholesterol: 200-239 mg/dLHigh Cholesterol: greater than 239 mg/dL LDL Cholesterol Calculated 130(H) <100 mg/dL [facility] Comment:Desirable LDL: less than 100 mg/dLNear Optimal/Above Optimal LDL: 110- 129 mg/dLBorderline High LDL: 130-159 mg/dLHigh LDL: 160-189 mg/dLVery High LDL: greater than or equal to 190 mg/dL HDL Cholesterol 50 >40 mg/dL [facility] Comment:Desirable HDL: great er than 40 mg/dL Note: This HDL assay may give artificially low results in patients with liver disease. 11/11/2023 8:06 AM EST 11/11/2023 8:06 AM EST us Generic External Data Provider LAB BLOOD ORDERAB LES Final Result [facility] [address] [place] [phone] from Last 3 Months or Most Recently Relevant to Health Maintenance Insurance [facility] ONE CARE < [address] [place] [address] Care Teams Cutting Torch Operator Relationship Specialty Start Date End Date Name, MD Logan [address] [place] [id number] PCP - General Family Medicine 05/05/17
--- OUTSIDE RECORDS SUMMARY | 2025-06-15 07:50 | XMS_ITS | Encounter Summary ---
Author Organization [employer] Address [address] [facility] [address]t h Floor [place] [id number] Care Team Providers Care Package Clerk Name Role Phone Name, Logan ZAPATA Primary Care Provider [phone] Reason for Visit * Reason Onset Date Comments Med Refill 06/11/2025 Encounter Details Date Type Department Care Team ([facility] st Contact Info) Description 06/11/2025 Refill [facility] [address] [place], [place] [id number] Name, MD Logan [address] [place] [address] Chronic pain of both knees Social History Tobacco Use Types Packs/Day Years [...] with others, in a hotel, in a [facility], living outside on the street, on a beach, in a car, or in a park 11/13/[address] you li ve. Do you have problems with any of the following? Lead [place] or [place] 11/13/2024 Food Insecurity Answer Date [...] encounter Miscellaneous Notes * Telephone Encounter - Logan Vieira - 06/11/2025 11:46 AM EDT TC from pt requesting medication refill. Medications needing refill : oxyCODONE-acetaminophen (Percocet) 5-325 MG tablet To be sent to: [facility]/pharmacy #[id number] - [address] [facility] documented in this encounter Plan of Treatment Upcoming Encounters Date Type Department Care Team (Late st Contact Info) Description 08/27/2025 9:00 AM EST Clinical Support [facility] [address] [place] [address] Naheed Mckeon, FLOR documented as of this encounter Visit Diagnoses Diagnosis Chronic pain of both knees documented in this encounter Additional Health Concerns Assessment Noted Time PHQ-9 Depression Total Score: 15 025 9:15 AM EDT documented as of this encounter Care Teams Package Clerk Relationship Specialty Start Date End Date Name, MD Logan [address] [place] [address] PCP - General Family Medicine 05/05/17 documented as of this encounter
--- NOTE | 2025-06-15 08:04 | MHC.OFFVIS ---
Vital Signs 06/15/25 08:05 Height 5 ft 5 in Weight 165 lb BMI 27.5 BP 122/84 Blood Pressure Location Rt brachial Position Sitting Pulse 70 Pulse Source Pulse Oximeter Pulse Oximetry (%) 98 Oxygen Delivery Method Room Air Intake Visit Reasons: colo screening Intake Note: New pt for initial colo w/ hx of gastric sleeve. CC: Pt denies any GI sx or concerns at this time. No pertinent FMHx. Campus Security Officer Required: No Campus Security Officer Services: Campus Security Officer Offered & Declined Accompanied by: Self / Same As Patient Allergies morphine (MORPHINE) Allergy (Mild, Verified 11/03/24 09:29) CONFUSION, hives, rash/ itchy HPI HPI colo screening: Details: 49 year old? male with past medical history of laparoscopic sleeve gastrectomy, status post panniculectomy, intra-abdominal adhesions is here today for pre colonoscopy screening.? Patient was sent to us by his PCP.? This is his first colonoscopy screening.? Patient denies any gastrointestinal symptoms in the past or at present.? Denies any personal or family history of gastrointestinal disease, colon polyps, or CRC.? Denies history of difficulty with sedation or anesthesia in the past.? History of sleep apnea, uses CPAP.? Denies any history of cardiac, renal, pulmonary, or hepatic disease.?? No history of infectious? diseases like hepatitis A, B, C, HIV or tuberculosis.? Patient is not on any anticoagulation [facility] Medical History Hematuria of unknown cause Knee pain Liver fibrosis Steatosis, liver Pre-op evaluation H. pylori infection Vitamin D deficiency Vitamin B1 deficiency Binge eating disorder Sleep apnea with use of continuous positive airway pressure (CPAP) DJD (degenerative joint disease) Kidney stones Morbid obesity Varicose veins of left lower extremity with inflammation DVT (deep venous thrombosis) Surgical History S/P laparoscopic sleeve gastrectomy History of surgery Hx of appendectomy Hx of varicose vein stripping Family History Mother Hypertension Father No problems noted. Brother No problems noted. Sister No problems noted. Sister No problems noted. Sister No problems noted. Sister No problems noted. Sister No problems noted. Sister No problems noted. Brother No problems noted. Brother No problems noted. Daughter No problems noted. 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) Alcohol intake: never Patient Tobacco Use Status: Never used Tobacco Review of Systems Const Denies weight gain and Denies weight loss ENT Reports no additional complaints, Denies dysphagia and Denies odynophagia Card Reports no additional complaints Resp Reports no additional complaints GI Denies abdominal pain, Denies belching, Denies melena, Denies bloating, Denies change in bowel habits, Denies dysphagia, Denies excessive flatus, Denies dyspepsia, Denies heartburn, Denies diarrhea, Denies loose stools, Denies nausea, Denies odynophagia and Denies vomiting Reports no additional complaints Musc Reports no additional complaints Neuro Reports no additional complaints Psych Reports no additional complaints Endo Reports no additional complaints Physical Exam Const General: healthy appearing, no acute distress and well developed Nutritional Appearance: well nourished Orientation/consciousness: patient oriented x3 Resp Effort & Inspection: normal respiratory effort, able to speak in complete sentences, no tracheal deviation and symmetric chest movement Auscultation: clear to auscultation bilaterally Cardio Rate: regular rate GI Inspection: Yes normal to inspection and No distended Palpation (GI): Soft to palpation, not firm, nontender and No hepatosplenomegaly present Auscultation: normal bowel sounds General: Yes no CVA tenderness Back/Spine/Pelvis Back: no CVA tenderness Skin General skin exam: elasticity normal, turgor normal and dry skin Neuro General: patient oriented x3 Psych Appearance: grossly normal Mental Status: mental status grossly normal Assessment & Plan Assessment & Plan (1) Screen for colon cancer: Code(s): Z12.11 - Encounter for screening for malignant neoplasm of colon Plan Patient denies any GI, cardiac or respiratory symptoms.? Denies any issues with anesthesia in the past.? History of sleep apnea, uses CPAP.? No history infectious diseases in the past or present.? Not on any anticoagulation therapy.? No family or personal history of colon cancer or polyps.? Patient denies melena, hematochezia, unintentional weight loss or ribbon like stools.? Discussed at length the pre-procedure,? prep, diet & medications as well as what to expect prior, during and after the procedure.?? Stressed the importance of good bowel prep.? Recommended the use of Vaseline or Calmoseptine OTC & baby wipes with bowel movements to promote comfort.? ?Patient verbalizes understanding and agrees to plan of care.? He was given the opportunity to ask questions and all questions answered.? We will see him after the procedure.? Orders: Referrals GI Procedure Notification Z12.11 - Encounter for screening for malignant neoplasm of colon Medications: New bisacodyl (Dulcolax (bisacodyl)) take 4 tabs at noon the day before your colonoscopy 20 mg (4 x 5 mg) PO ONCE 4 tabs 0RF constipation 1 day Z12.11 - Encounter for screening for malignant neoplasm of colon polyethylene glycol 3350 (Miralax) As directed by gastroenterology department at [facility] 238 grams PO ONCE 238 grams 0RF Z12.11 - Encounter for screening for malignant neoplasm of colon Coding Level of Care Code New Pt Level 3 (59385) Diagnoses Screen for colon cancer Z12.11 Time Spent (min) 40 Comment 30 minutes spent with patient and additional 10 minutes spent reviewing his records
[2025-06-15 08:05] VITALS: BP 122/84; PULSE 70; O2SAT 98; BMI 27.5
== END 2025-06-15 08:24 | disposition home or self-care (01) ==
PROVIDERS: PCP Internal Medicine Geriatric Medicine; Visit Provider Nurse Practitioner Family
DX: Z01.818 Encounter for other preprocedural examination (principal); Z12.11 Encounter for screening for malignant neoplasm of colon
CPT/HCPCS: 99024

== ENCOUNTER → 2025-06-15 07:46 | Outpatient (BNVA) | payer OTHER, SELFPAY | PROVIDERS: PCP Internal Medicine Geriatric Medicine; Visit Provider Nurse Practitioner Family | DX: Z12.11 Encounter for screening for malignant neoplasm of colon (principal) | CPT/HCPCS: 99212 ==

== ENCOUNTER 2025-07-06 10:04 | Day surgery (SDC) | payer OTHER, SELFPAY ==
[2025-07-04 08:42] VITALS: BMI 27.5
--- OUTSIDE RECORDS SUMMARY | 2025-07-05 19:15 | XMS_ITS | Encounter Summary ---
Author Organization [employer] Address [address] [facility] [address] [place] [address] Care Team Providers Care Music Professionals Name Role Phone Name, Logan ZAPATA Primary Care Provider [phone] Encounter Details Date Type Department Care Team (Late st Contact Info) Description 03/01/2024 Orders Only [facility] [address] [place], [place] [phone] Provider, MD Shin Social History Tobacco Use [...] your housing situation today? I have lauraedi glavin 12/08/[address] you li [...] Team (Late st Contact Info) Description 08/27/2025 8:30 AM EST Clinical Support [facility] [address] [place] [address] Naheed Mckeon RN documented as of this [...] documented as of this encounter Care Teams Music Professionals Relationship Specialty Start Date End Date Name, MD Logan [address] [place] [address] PCP - General Family Medicine 05/05/17 documented as of this encounter
--- OUTSIDE RECORDS SUMMARY | 2025-07-05 19:15 | XMS_ITS | Clinical Summary ---
Author Organization [employer] Address [address] [facility] 7t [place] [address] Care Team Providers Care Rfid Developer Name Role Phone Name, Logan ZAPATA Primary Care Provider [phone] Allergies Active Allergy Reactions Criticality Noted Date [...] gastrectomy 08/09/2023 Overview (08/09/2023): And paniculectomy with [facility] b[facility] clinic Migraine 02/22/2023 Leg pain, left 02/23/2018 08/06/2023 Insomnia 10/20/2017 08/06/2023 Depressive disorder 08/16/2017 08/06/2023 Essential hypertension 05/26/2017 Obstructive sleep apnea syndrome 05/07/2017 Peripheral venous insufficiency 05/07/2017 Recurrent deep vein thrombosis (CMS/HCC) 017 Knee pain 05/07/2017 08/06/2023 Morbid obesity (CMS/HCC) 05/07/2017 023 Postphlebitic syndrome 05/07/2017 Shoulder pain 05/07/2017 08/06/2023 Encounters Date Type Department Care Team Description 06/11/2025 Refill [facility] [place] [address] Logan Bettencourt MD Chronic pain of both knees 05/28/2025 9:00 AM EDT Clinical Support [facility] [address] [facility] [place] [address] Naheed Mckeon, RN Long-term current use of opiate analgesic (Primary Dx) 05/28/2025 Telephone [facility] [place] [address] Naheed Mckeon, RN OFFICE COORDINATOR Agreement renewed today 05/28/2025 Travel 05/21/2025 Travel 05/10/2025 Refill [facility] [address] [facility] [place] [address] Logan Bettencourt MD Chronic pain of both knees 04/09/2025 Refill [facility] [address] [place] [address] Name, MD Logan Chronic pain of both knees from Last 3 Months Immunizations Immunization Administration [...] with others, in a hotel, in a jail, living outside on the street, on a beach, in a car, or in a park 11/13/[address] you li ve. Do you have problems with any of the following? Lead [place] or Pipes 11/13/2024 Food Insecurity Answer Date [...] Description 08/27/2025 8:30 AM EST Clinical Support [address] [address] Naheed Mckeon, RN Health Maintenance Due Date [...] procedure / Unknown 05/28/2025 8:49 AM EDT Naheed Cornejo RN - 05/28/2025 8:49 AM EDT UTOX cup [id number] Exp. 06/26/26 Internal Pass Control Logan Bettencourt MD POINT OF CARE TEST ENTER/EDIT OR DERABLES Final Result * (ABNORMAL) Lipid Panel, Standard (11/11/2023 8:06 AM EST) Triglycerides 54 <150 mg/dL [facility] Comment:Desirable Triglyceri de: less than 150 mg/dLBorderline High Triglyceride 150-199 mg/dLHigh Triglyceride: 200-499 mg/dLVery High Triglyceride: greater than or equal to 5OO mg/dL Cholesterol 190 <200 mg/dL [facility] Comment:Desirable Cholestero l: less than 200 mg/dLBorderline High Cholesterol: 200-239 mg/dLHigh Cholesterol: greater than 239 mg/dL LDL Cholesterol Calculated 130(H) <100 mg/dL [facility] Comment:Desirable LDL: less than 100 mg/dLNear Optimal/Above Optimal LDL: 110- 129 mg/dLBorderline High LDL: 130-159 mg/dLHigh LDL: 160-189 mg/dLVery High LDL: greater than or equal to 190 mg/dL HDL Cholesterol 50 >40 mg/dL [facility] Comment:Desirable HDL: great er than 40 mg/dL Note: This HDL assay may give artificially low results in patients with liver disease. 11/11/2023 8:06 AM EST 11/11/2023 8:06 AM EST us Generic External Data Provider LAB BLOOD ORDERAB LES Final Result [facility] [address] [place], [place] [phone] from Last 3 Months or Most Recently Relevant to Health Maintenance Insurance [employer] ONE CARE < 65 [place] [id number] [place] [address] [place] [address] Care Teams Rfid Developer Relationship Specialty Start Date End Date Name, MD Logan [address] [place] [address] PCP - General Family Medicine 05/05/17
--- OUTSIDE RECORDS SUMMARY | 2025-07-05 19:15 | XMS_ITS | Patient Health Record ---
Author Organization [facility] Address [address] [place] [address] Care Team Providers Care Medical And Scientific Illustrator Name Role Phone Juwan Fishman M.D. Primary Care Provider Deborah getachew Del Liriano Unavailable [phone] Allergies Allergen (clinical drug ingredient) Drug/Non Drug Allergy documented on EMR Reaction Allergy Type Onset Date Status Morphine Sulfate Unknown Drug Allergy Active Reason For Referral No Information Medications Medication SIG (Take, Route, Frequency, Duration) Notes Start Date End Date Status Warfarin Sodium 5 MG TAKE 2 TABLETS OR A S DIRECTED ONCE A DAY Oral; Duration: 30 Not-Taking Lovenox 80 MG/0.8ML 0.3 ml [...] Problem Status W/U Status Risk Notes Problem Abnormal celiac antibody panel (R89.4) Active confirmed Plan Of Treatment Future Test Test Name Order Date UPPER GI ENDOSCOPY 03/02/2017 Insurance Providers Payer Name Payer Address Payer Phone Subscriber Number Group Number Insured Name Patient Relationship to Insured Coverage Start Date Coverage End Date [facility] [address] [address] [place], [place] [id number] MANPREET MONTERO Self - patient is the insured Medical (General) History Medical History History ICD Code Denies DC,DM,CVA,Lung disease,renal dise ase LE DVT--in [facility] [place] Jan, [place]--started on Coumadin Sleep apnea--waiting for the CPAP HTN Chronic LE edema Surgical History Surgery Date(Month/Year) Appendectomy Hernia repair--in [place] > 10 yrs ago Vein ligation--left leg
--- OUTSIDE RECORDS SUMMARY | 2025-07-05 19:15 | XMS_ITS | Encounter Summary ---
Author Organization [employer] Address [address] [facility] 7t h Floor [place] [id number] Care Team Providers Care Produce Wrapper Name Role Phone Name, Logan ZAPATA Primary Care Provider [phone] Reason for Visit * Reason Onset Date Comments Nurse Triage 12/22/2023 Encounter Details Date Type Department Care Team ([facility] st Contact Info) Description 12/22/2023 Telephone [facility] [address] [place], [place] [phone] Name, MD Logan [address] [place] [address] Nurse Triage Social History Tobacco Use Types [...] 12/22/2023 3:24 PM EDT Triage call with [place] [id number] Pt reports a sore throat which started yesterday. Pt reports neg for fever, pain with swallowing, neg for earache but, jaw hurts when open and close . Pt is advised to come to [facility] today for provider to see Pt. Pt [...] The caller accepted this outcome Patient speaks irish documented in this encounter Plan of Treatment Upcoming Encounters Date Type Department Care Team (Late st Contact Info) Description 08/27/2025 8:30 AM EST Clinical Support [facility] [address] [place] [address] Naheed Mckeon RN documented as of this encounter Visit Diagnoses Not on filedocumented in this encounter Additional Health Concerns Assessment Noted Time PHQ-9 Depression Total Score: 0 08/09/20 23 10:09 AM EST documented as of this encounter Care Teams Produce Wrapper Relationship Specialty Start Date End Date Name, MD Logan [address] [place] [address] PCP - General Family Medicine 05/05/17 documented as of this encounter
--- OUTSIDE RECORDS SUMMARY | 2025-07-05 19:15 | XMS_ITS | Encounter Summary ---
Author Organization [employer] Address [address] [facility] 7t h Floor [place] [id number] Care Team Providers Care Corrosion Control Fitter Name Role Phone Name, Logan ZAPATA Primary Care Provider [phone] Reason for Visit * Reason Onset Date Comments referral status 03/02/2023 Encounter Details Date Type Department Care Team ([facility] st Contact Info) Description 03/02/[address] [facility] [address] [place] [address] [phone] Name, MD Logan [address] [place] [address] referral status Social History Tobacco Use Types [...] an emergency Referral. * Telephone Encounter - oJsey Valdes - 03/02/2023 3:01 PM EDT Tc from pt would like to know where referral to optometry was sent to ? documented in this encounter Plan of Treatment Upcoming Encounters Date Type Department Care Team (Late st Contact Info) Description 08/27/2025 8:30 AM EST Clinical Support [facility] [address] [place] [address] Naheed Mckeon, RN documented as of this encounter Visit Diagnoses Not on filedocumented in this encounter Care Teams Corrosion Control Fitter Relationship Specialty Start Date End Date Name, MD Logan [address] [place] [address] PCP - General Family Medicine 05/05/17 documented as of this encounter
--- OUTSIDE RECORDS SUMMARY | 2025-07-05 19:15 | XMS_ITS | Encounter Summary ---
Author Organization [employer] Address [address] [place] [address] 7 [place] [address] Care Team Providers Care Sales Floor Associate Name Role Phone Name, Logan ZAPATA Primary Care Provider [phone] Reason for Referral * Consultation (Routine) - Closed Specialty Diagnoses / Procedures Referred By Marlen farmer Referred To Contact Plastic Surgery Diagnoses Basal cell carcinoma (BCC) of skin of nose Kailyn Mcadams MD [address] [place] [address] Phone: tel: fax: [facility] Plastic Surgery [address] [place] [address] Drive [address] [place], [place] Phone: tel: fax: Referral ID Status Reason Start Date Expiration Date V isits Requested Visits Authorized [id number] Closed Specialty Services Required 03/01/2024 03/01/2025 1 1 Encounter Details Date Type Department Care Team (Late st Contact Info) Description 03/01/2024 Orders Only [facility] [address] [place] [phone] Kailyn Mcadams MD [address] [place] [address] Basal cell carcinoma (BCC) of skin of [...] Description 08/27/2025 8:30 AM EST Clinical Support [address] [address] Naheed Mckeon, FLOR Scheduled Referrals Name Type [...] documented as of this encounter Care Teams Sales Floor Associate Relationship Specialty Start Date End Date Name, MD Logan [address] [place] [address] PCP - General Family Medicine 05/05/17 documented as of this encounter
--- OUTSIDE RECORDS SUMMARY | 2025-07-05 19:15 | XMS_ITS | Encounter Summary ---
Author Organization [employer] Address [address] [facility] 7t h Floor [place] [phone] Care Team Providers Care Replanter Name Role Phone Name, Logan ZAPATA Primary Care Provider [phone] Reason for Visit * Reason Onset Date Comments Med Refill 04/06/2024 Encounter Details Date Type Department Care Team ([facility] st Contact Info) Description 04/06/2024 Telephone [facility] [address] [place] [address] [phone] Name, MD Logan [address] [place] [address] Med Refill Social History Tobacco Use Types [...] 28 days supply, qty - 28. At [facility] at [facility]. [facility] for approval. * Telephone Encounter - Avni Martinez - 04/06/2024 2:31 PM EDT TC from pt requesting medication refill. Medications needing refill : oxyCODONE-acetaminophen (Percocet) 5-325 MG tablet To be sent to: [facility]/pharmacy #[id number] - [address] AT [facility] documented in this encounter Plan of Treatment Upcoming Encounters Date Type Department Care Team (Late st Contact Info) Description 08/27/2025 8:30 AM EST Clinical Support [facility] [address] [place] [address] Naheed Mckeon RN documented as of this encounter Visit Diagnoses Not on filedocumented in this encounter Additional Health Concerns Assessment Noted Time PHQ-9 Depression Total Score: 0 08/09/20 23 10:09 AM EST documented as of this encounter Care Teams Replanter Relationship Specialty Start Date End Date Name, MD Logan [address] [place] [address] PCP - General Family Medicine 05/05/17 documented as of this encounter
--- NOTE | 2025-07-06 10:12 | MHC.SHP ---
Pre-Procedural Eval Section A - 24 Hr Update-Section A only Date of Service: 07/06/25 The patient is an INPATIENT: No The patient has been examined within 24 hours of the surgical procedure. The History & Physical has been completed within 30 days and I have reviewed it.: Yes Section B - Complete if H&P > 30 days Chief Complaint: screening Allergies: Allergies Allergy/AdvReac Type Severity Reaction Status Date / Time morphine (MORPHINE) Allergy Mild CONFUSION, Verified 11/03/24 09:29 hives, rash/ itchy Plan Diagnosis/Plan: Unchanged I have reviewed the history and physical and performed a pertinent physical examination on my patient. No changes have occurred unless specified. Time Spent With Patient Time: Total time managing care of this patient today ____ minutes.
[2025-07-06 10:19] VITALS: BMI 27.8
[2025-07-06] MEDS: Lactated Ringers 1,000 ML 80 ML IVCONT (10:26)
[2025-07-06 10:31] VITALS: BP 126/84; PULSE 72; RESP 18; TEMP 36.6; O2SAT 100
--- NOTE | 2025-07-06 10:34 | P.CONAN_ITS ---
HPI - Anesthesia Eval Consult details Narrative: for colon PMFSH Active Problems Active Problems: All Active Problems (Updated 05/17/24 @ 00:01 by Matilde Flores) COVID-19 (Acute) S/P panniculectomy (Acute) Constipation (Acute) Postgastrectomy malabsorption (Acute) Excess skin (Acute) Varicose veins of right lower extremity with inflammation (Acute) Overweight (Acute) BMI 37.0-37.9, adult (Acute) Obesity (Acute) Intra-abdominal adhesions (Acute) Status post sleeve gastrectomy (Acute) Hypertension (Acute) S/P laparoscopic sleeve gastrectomy (Acute) Varicose veins of left lower extremity with inflammation (Acute) Hematuria of unknown cause (Acute) Liver fibrosis (Acute) Steatosis, liver (Acute) Sleep apnea with use of continuous positive airway pressure (CPAP) (Acute) Morbid obesity (Acute) Past Medical History Medical History Hematuria of unknown cause Knee pain Liver fibrosis Steatosis, liver Pre-op evaluation H. pylori infection Vitamin D deficiency Vitamin B1 deficiency Binge eating disorder Sleep apnea with use of continuous positive airway pressure (CPAP) DJD (degenerative joint disease) Kidney stones Morbid obesity Varicose veins of left lower extremity with inflammation DVT (deep venous thrombosis) Family History Family History Mother Hypertension Father No problems noted. Brother No problems noted. Sister No problems noted. Sister No problems noted. Sister No problems noted. Sister No problems noted. Sister No problems noted. Sister No problems noted. Brother No problems noted. Brother No problems noted. Daughter No problems noted. Family history of problems with anesthesia: No Surgical History Surgical History Hx of abdominoplasty S/P laparoscopic sleeve gastrectomy History of surgery Hx of appendectomy Hx of varicose vein stripping History of Problems with Anesthesia: No Social History Social History Are you a primary care management specialist to a significant other at home: No Do you presently have visiting nurse or other home services: No Alcohol intake: never Patient Tobacco Use Status: Never used Tobacco Have you been hit, kicked, punched, or otherwise hurt by someone within the past year? If so, by whom?: No Are you DNR?: No Advance Directives: No Advance Directives Information Provided: Yes Poor oral hygiene: No Meds Allergies Allergy/AdvReac Type Severity Reaction Status Date / Time morphine (MORPHINE) Allergy Mild CONFUSION, Verified 07/06/25 10:20 hives, rash/ itchy Active Medications: Current Medications Lactated Ringer's (Lr) 1,000 mls @ 80 mls/hr IVCONT .[id number] [id number] Last Admin: 07/06/25 10:26 Dose: 80 mls/hr Home Medications ?Medication ?Instructions ?Recorded ?Confirmed ?Last Taken ?Type oxycodone-acetaminophen 5 mg-325 1 tab PO NEEDED IN N Pain, Severe 06/15/25 07/06/25 Unknown History mg tablet Exam Height,Weight and Vital Signs: Height 5 ft 5 in Weight 75.841 kg Last Vital Signs Temp 97.9 F 07/06/25 10:31 Pulse 72 07/06/25 10:31 Resp 18 07/06/25 10:31 BP 126/84 07/06/25 10:31 Pulse Ox 100 07/06/25 10:31 O2 Del Method Room Air 07/06/25 10:31 Airway Mallampati Class: II TM Dist: >3cm Neck ROM: Full Heart: rrr Lungs: cta Assessment and Plan Assessment Anesthesia Assessment: Anesthesia Plan Discussed and Chart Reviewed Final Anesthetic Review Family History of Problems with Anesthesia: No History of Problems with Anesthesia: No NPO: Yes ASA Class: II Final Preanesthetic Review: No Changes in Pt Med Stat, Meds/Allgs Chart Reviewed, Consent Obtained/Reviewed and Anes Risks/Benef Reviewed Patient Risk: Low Procedure Risk: Low Anesthetic Plan Anesthetic Plan: MAC: Disposition: Standard PACU
--- NOTE | 2025-07-06 12:22 | P.OPN-COLO_ITS ---
Colonoscopy Operative Note Operative Note Date of Service: 07/06/25 Narrative: Procedure: Colonoscopy Indication: Screening Endoscopist: Mariah Alejandro MD Anesthesia Provider: Alexandro Delong CRNA Anesthesia type: MAC Instrument: Olympus [id number]-H190L Consent: Indication, risks vs benefits, and alternatives were discussed with the patient who gave written informed consent to proceed. EKG, pulse, pulse oximetry and blood pressure were monitored throughout the procedure. Please see anesthesia flowsheet. Procedure: The patient was brought to the procedure room and placed in the left lateral decubitus position. IV medications were administered by the anesthesia provider in attendance. A digital rectal exam was performed which was normal. A distal attachment cap was affixed to the tip of the colonoscope which was then inserted through the anus and advanced through the colon to the cecum at 80 cm,and terminal ileum. Appendiceal orifice and ileocecal valve were identified. Mucosa was carefully examined under high definition white light as the instrument was slowly withdrawn in a retrograde panoramic fashion. Retroflexion was performed in ascending colon and rectum. The procedure was not difficult. There were no immediate obvious complications. The quality of the prep was BBPS: 3+2+2 = adequate Withdrawal time 9 minutes. Limitations: No limitations. Findings: Mucosa: Normal to cecum and terminal ileum. Protruding lesions: * Large internal hemorrhoids without stigmata of recent bleeding. Impression: 1. Normal colon and terminal ileum mucosa 2. Internal hemorrhoids Recommendations: - Repeat colonoscopy for asymptomatic colorectal ca screening in 10 years.
[2025-07-06 12:25] VITALS: BP 109/75; PULSE 67; RESP 16; TEMP 36.8; O2SAT 96
[2025-07-06 12:40] VITALS: BP 109/69; PULSE 70; RESP 16; O2SAT 97
[2025-07-06 12:51] VITALS: TEMP 36.6
== END 2025-07-06 13:03 | disposition home or self-care (01) ==
PROVIDERS: PCP Internal Medicine Geriatric Medicine; Visit Provider Internal Medicine
PROC: 0DJD8ZZ Inspection of Lower Intestinal Tract, Via Natural or Artificial Opening Endoscopic (ICD-10-PCS; CPT 45378; principal; 2025-07-06 12:40)
DX: Z12.11 Encounter for screening for malignant neoplasm of colon (principal); K64.8 Other hemorrhoids
CPT/HCPCS: G0121; J2704

== ENCOUNTER → 2025-07-06 10:04 | Outpatient (BNV) | payer OTHER, SELFPAY | PROVIDERS: PCP Internal Medicine Geriatric Medicine; Visit Provider Internal Medicine | DX: Z12.11 Encounter for screening for malignant neoplasm of colon (principal); K64.8 Other hemorrhoids | CPT/HCPCS: G0121 ==